=== PATIENT | female | born 1960 | race Caucasian/White ===

== ENCOUNTER 2016-10-08 09:05 | Emergency (ER) | payer BC, MEDICAID ==
[2016-10-08] MEDS ORDERED: IPRATROPIUM/ALBUTEROL 0.5-2.5 MG/3 ML AMPUL NEB ONE (09:48)
[2016-10-08 10:25] LABS: ABSOLUTE MONOCYTES (AUTO) 0.4 10^3/uL (0.1-1.4); ABSOLUTE NEUT (AUTO) 5.7 10^3/uL (1.7-8.2); BASOPHILS % (AUTO) 0.6 % (0-2); EOSINOPHILS % (AUTO) 0.2 % (0-6); HEMATOCRIT 37.1 % (36.0-47.0); HEMOGLOBIN 12.4 g/dL (12.0-15.5); HGB HCT DIFFERENCE 0.1; LYMPHOCYTES % (AUTO) 13.5 % (13-45); MEAN CORPUSCULAR HEMOGLOBIN 31.3 pg (27.0-33.4); MEAN CORPUSCULAR HGB CONC 33.5 g/dL (32.0-36.0); MEAN CORPUSCULAR VOLUME 93 fl (80-97); RED BLOOD COUNT 3.97 10^6/uL (3.72-5.28); RED CELL DISTRIBUTION WIDTH 14.6 % (11.5-14.0); SEGMENTED NEUTROPHILS % (AUTO) 80.7 % (42-78); WHITE BLOOD COUNT 7.1 10^3/uL (4.0-10.5)
[2016-10-08 10:44] LABS: ALANINE AMINOTRANSFERASE 23 U/L (9-52); ALBUMIN 3.6 g/dL (3.5-5.0); ALKALINE PHOSPHATASE 72 U/L (38-126); ANION GAP 11 (5-19); ASPARTATE AMINO TRANSFERASE 18 U/L (14-36); BILIRUBIN,TOTAL 0.2 mg/dL (0.2-1.3); BLOOD UREA NITROGEN 22 mg/dL (7-20); CALCIUM 9.4 mg/dL (8.4-10.2); CARBON DIOXIDE 23 mmol/L (22-30); CHLORIDE 104 mmol/L (98-107); CREATINE KINASE 70 U/L (30-135); CREATININE RESULT 1.17 mg/dL (0.52-1.25); GLUCOSE 90 mg/dL (75-110); LIPASE 367.7 U/L (23-300); MAGNESIUM 1.8 mg/dL (1.6-2.3); POTASSIUM 3.7 mmol/L (3.6-5.0); SODIUM 137.8 mmol/L (137-145); TOTAL PROTEIN 6.3 g/dL (6.3-8.2)
[2016-10-08 10:57] LABS: CREATINE KINASE MB 0.68 ng/mL (<4.55)
[2016-10-08 11:10] LABS: TROPONIN I < 0.012 ng/mL
[2016-10-08] MEDS ORDERED: NORMAL SALINE 1000 ML 500 ML IV ONE (11:12)
[2016-10-08] MEDS ORDERED: ALBUTEROL SULFATE 0.083% NEB 2.5 MG/3 ML AMPUL NEB ONE (11:19)
[2016-10-08] MEDS ORDERED: LIDOCAINE 5% (700 MG) TRANSDERMAL ADH..PATCH TP ONE (12:02)
[2016-10-08] MEDS ORDERED: KETOROLAC TROMETHAMINE INJ/PF 30 MG/1 ML SDV IV ONE (12:02)
--- NOTE | 2016-10-08 12:30 | ER Document Report ---
ED General - General Chief Complaint: Chest Pressure Stated Complaint: SHORTNESS OF BREATH,CHEST PRESSURE TRAVEL OUTSIDE OF THE [place] IN LAST 30 DAYS: No - HPI Patient complains to provider of: chest pressure shortness of breath Notes: Patient coming in for chest pressure shortness of breath. Patient was seen in urgent care 3 days prior to arrival patient was started on prednisone albuterol and azithromycin patient states she is a smoker and continues to smoke. Patient states symptoms not any better therefore came into the ER for further evaluation. Patient states chest pressure that radiates to her back. Denies any recent travel patient denies recent antibiotics of azithromycin that she is currently on. Patient multiple people smoke around the patient home. No sick contacts. Past medical history is hypertension - Related Data Allergies/Adverse Reactions: amoxicillin [Amoxicillin] Allergy (Severe, Verified 10/08/16 09:15) Anaphylaxis cyclobenzaprine HCl [From Flexeril] Allergy (Severe, Verified 10/08/16 09:15) Anaphylaxis tramadol [Tramadol] Allergy (Severe, Verified 10/08/16 09:15) Anaphylaxis Past Medical History - Social History Smoking Status: Current Every Day Smoker Chew tobacco use (# tins/day): No Frequency of alcohol use: None Drug Abuse: None Family History: Reviewed & Not Pertinent Patient has suicidal ideation: No Patient has homicidal ideation: No - Past Medical History Cardiac Medical History: Reports: Hx DVT, Hx Hypertension Denies: Hx Coronary Artery Disease, Hx Heart Attack Pulmonary Medical History: Reports: Hx Asthma, Hx Bronchitis - Once yearly, Hx COPD, Hx Pneumonia - Aug 2014 Neurological Medical History: Denies: Hx Cerebrovascular Accident, Hx Seizures Renal/ Medical History: Denies: Hx Peritoneal Dialysis Malignancy Medical History: Reports: Hx Skin Cancer GI Medical History: Reports: Hx Gastroesophageal Reflux Disease, Hx Ulcer Musculoskeltal Medical History: Denies Hx Arthritis Psychiatric Medical History: Reports: Hx Depression Past Surgical History: Reports: Hx Section - x3, Hx Vascular Surgery - Left aoro-fem bypass Apr 2015. Denies: Hx Hysterectomy - Immunizations Hx Diphtheria, Pertussis, Tetanus Vaccination: Yes Hx Pneumococcal Vaccination: 05/13/14 Review of Systems - Review of Systems Constitutional: No symptoms reported EENT: No symptoms reported Cardiovascular: Chest pain Respiratory: Cough, Short of breath, Wheezing Gastrointestinal: No symptoms reported Genitourinary: No symptoms reported Female Genitourinary: No symptoms reported Musculoskeletal: No symptoms reported Skin: No symptoms reported Hematologic/Lymphatic: No symptoms reported Neurological/Psychological: No symptoms reported -: Yes All other systems reviewed and negative Physical Exam - Vital signs Vitals: Temp Pulse Resp BP Pulse Ox 97.9 F 74 20 125/68 97 10/08/16 09:16 10/08/16 09:16 10/08/16 09:16 10/08/16 09:16 10/08/16 09:16 Interpretation: Normal - General General appearance: Appears well, Alert - HEENT Head: Normocephalic, Atraumatic Eyes: Normal Pupils: PERRL - Respiratory Respiratory status: No respiratory distress Chest status: Nontender Breath sounds: Wheezing Chest palpation: Normal - Cardiovascular Rhythm: Regular Heart sounds: Normal auscultation Murmur: No - Abdominal Inspection: Normal Distension: No distension Bowel sounds: Normal Tenderness: Nontender Organomegaly: No organomegaly - Back Back: Normal, Nontender - Extremities General upper extremity: Normal inspection, Nontender, Normal color, Normal ROM , Normal temperature General lower extremity: Normal inspection, Nontender, Normal color, Normal ROM , Normal temperature, Normal weight bearing. No: Nessa's sign - Neurological Neuro grossly intact: Yes Cognition: Normal Orientation: AAOx4 [place] Coma Scale Eye Opening: Spontaneous [place] Coma Scale Verbal: Oriented Anitha Coma Scale Motor: Obeys Commands Anitha Coma Scale Total: 15 Speech: Normal Motor strength normal: LUE, RUE, LLE, RLE Sensory: Normal - Psychological Associated symptoms: Normal affect, Normal mood - Skin Skin Temperature: Warm Skin Moisture: Dry Skin Color: Normal Course - Re-evaluation Re-evalutation: 10/08/16 15:07 Patient presents with signs and symptoms of bronchitis. Patient's lab work shows no signs of cardiac damage CTA was performed after elevated d-dimer which is negative. Patient was educated to stop smoking. Patient is to continue her treatment at home. Albuterol antibiotics and steroids. Patient will be given albuterol - Vital Signs Vital signs: Temp Pulse Resp BP Pulse Ox 98 F 94 21 H 101/55 L 94 10/08/16 12:50 10/08/16 12:50 10/08/16 12:50 10/08/16 12:50 10/08/16 12:50 - Laboratory Result Diagrams: 10/08/16 10:05 10/08/16 10:05 Laboratory results interpreted by me: 10/08/16 10/08/16 10/08/16 10:05 10:05 10:05 RDW 14.6 H Seg Neutrophils % 80.7 H D-Dimer 0.56 H BUN 22 H Est GFR ( Amer) 58 L Est GFR (Non-Af Amer) 48 L Lipase 367.7 H Discharge - Discharge Clinical Impression: Tobacco abuse, Bronchitis Condition: Good Disposition: HOME, SELF-CARE Instructions: Bronchitis With Bronchospasm (Wheezing) ([facility]) Additional Instructions: Take medication as prescribed. Please use the inhaler or your nebulizer at least every 4 hours. You may use in between if you are having shortness of breath. Please take Tylenol Motrin for pain control you may use the patch for pain control as well. Please stop smoking if you do not stop smoking the medications that we are prescribing will not aid in your symptom relief Prescriptions: Albuterol Sulfate [Albuterol Sulfate 2.5mg/3 mL] 2.5 mg IH Q4 #30 ml Lidocaine [Lidoderm 5% (700 mg) Transdermal Patch] 1 patch TP DAILY #10 adh..patch Forms: Smoking Cessation Education Referrals: CHRISTIANNE YU DO [Primary Care Provider] - Follow up as needed
[2016-10-08 12:36] LABS: VENOUS BLOOD BASE EXCESS -2.9 mmol/L; VENOUS BLOOD PH 7.37 (7.30-7.42)
[2016-10-08 12:57] VITALS: BP 101/55
--- NOTE | 2016-10-08 17:39 | EKG REPORT ---
SEVERITY:- NORMAL ECG - SINUS RHYTHM : Confirmed by: Tayler Alexander MD 08-Oct-2016 17:39:07
== END 2016-10-08 12:50 | disposition home or self-care (01) ==
LOC: ER 09:05
DX: J44.9 Chronic obstructive pulmonary disease, unspecified (principal); J45.909 Unspecified asthma, uncomplicated; F17.200 Nicotine dependence, unspecified, uncomplicated; R07.89 Other chest pain; R06.02 Shortness of breath; I10 Essential (primary) hypertension; R05 Cough; Z87.892 Personal history of anaphylaxis; Z88.0 Allergy status to penicillin; Z88.8 Allergy status to other drugs, medicaments and biological substances; Z88.5 Allergy status to narcotic agent; Z86.718 Personal history of other venous thrombosis and embolism; Z87.01 Personal history of pneumonia (recurrent); Z85.828 Personal history of other malignant neoplasm of skin
CPT/HCPCS: 93005; 94640 ×2; 99285; 96374; 36415; 82553; 82550; 83690; 83735; 85025; 80053; 84484; 85379; 82803; 71010; 71275; 93010; J1885; J3490; J7030; J7620

== ENCOUNTER 2016-10-09 09:36 | Inpatient (IN) | payer MEDICAID ==
[2016-10-09] MEDS ORDERED: TERBUTALINE SULFATE INJ/PF 1 MG/1 ML SDV SUBCUT ONE (09:52)
[2016-10-09] MEDS ORDERED: MAGNESIUM SULFATE/D5W 100 ML IV ONE (09:53)
[2016-10-09 10:10] LABS: ABSOLUTE LYMPHOCYTES (AUTO) 1.1 10^3/uL (0.5-4.7); ABSOLUTE MONOCYTES (AUTO) 0.3 10^3/uL (0.1-1.4); BASOPHILS % (AUTO) 0.4 % (0-2); HEMATOCRIT 36.9 % (36.0-47.0); HEMOGLOBIN 12.3 g/dL (12.0-15.5); LYMPHOCYTES % (AUTO) 14.6 % (13-45); MEAN CORPUSCULAR HEMOGLOBIN 31.1 pg (27.0-33.4); MEAN CORPUSCULAR HGB CONC 33.4 g/dL (32.0-36.0); MEAN CORPUSCULAR VOLUME 93 fl (80-97); MONOCYTES % (AUTO) 4.2 % (3-13); RED BLOOD COUNT 3.96 10^6/uL (3.72-5.28); RED CELL DISTRIBUTION WIDTH 14.7 % (11.5-14.0); SEGMENTED NEUTROPHILS % (AUTO) 80.8 % (42-78); WHITE BLOOD COUNT 7.4 10^3/uL (4.0-10.5)
[2016-10-09 10:11] LABS: VENOUS BLOOD BASE EXCESS -2.9 mmol/L; VENOUS BLOOD HCO3 23.1 mmol/L (20-32); VENOUS BLOOD PCO2 45.2 mmHg (35-63); VENOUS BLOOD PH 7.33 (7.30-7.42)
[2016-10-09 10:25] LABS: PROTHROMBIN TIME 11.9 SEC (11.4-15.4)
[2016-10-09 10:31] LABS: ALANINE AMINOTRANSFERASE 24 U/L (9-52); ALBUMIN 3.6 g/dL (3.5-5.0); ALKALINE PHOSPHATASE 78 U/L (38-126); ANION GAP 11 (5-19); ASPARTATE AMINO TRANSFERASE 18 U/L (14-36); BILIRUBIN,TOTAL 0.2 mg/dL (0.2-1.3); BLOOD UREA NITROGEN 21 mg/dL (7-20); CALCIUM 9.4 mg/dL (8.4-10.2); CARBON DIOXIDE 21 mmol/L (22-30); CHLORIDE 106 mmol/L (98-107); CREATINE KINASE 103 U/L (30-135); CREATININE RESULT 0.97 mg/dL (0.52-1.25); GLUCOSE 113 mg/dL (75-110); LIPASE 148.9 U/L (23-300); MAGNESIUM 1.9 mg/dL (1.6-2.3); PHOSPHORUS 2.7 mg/dL (2.5-4.5); POTASSIUM 3.5 mmol/L (3.6-5.0); SODIUM 138.1 mmol/L (137-145); TOTAL PROTEIN 6.3 g/dL (6.3-8.2)
[2016-10-09] MEDS ORDERED: ALBUTEROL SULFATE 0.083% NEB 2.5 MG/3 ML AMPUL NEB ONE (10:34)
[2016-10-09 10:56] LABS: TROPONIN I < 0.012 ng/mL
[2016-10-09] MEDS ORDERED: POTASSIUM CHLORIDE 10 MEQ TABLET.SA PO ONE (11:30)
--- NOTE | 2016-10-09 12:21 | ER Document Report ---
ED General - General Chief Complaint: Breathing Difficulty Stated Complaint: DIFFICULTY BREATHING TRAVEL OUTSIDE OF THE [place] IN LAST 30 DAYS: No - HPI Patient complains to provider of: wheezing difficulty breathing Notes: Patient coming to the ER today for respiratory distress wheezing more likely COPD exacerbation. I evaluated the patient day prior to arrival for similar presentation was able to give her medications and discharge patient home. Patient returns for EMS was found outside to Make no signs of hypoxia would give the patient a breathing treatment with improvement. Patient upon my evaluation now has 2-3 word dyspnea no signs of hypoxia but is to Take. Denies any pain. Patient states that she did not smoke in the last 24 hours patient states she had been compliant with her medication and using the inhaler every 4 hours. Denies fevers - Related Data Allergies/Adverse Reactions: amoxicillin [Amoxicillin] Allergy (Severe, Verified 10/08/16 09:15) Anaphylaxis cyclobenzaprine HCl [From Flexeril] Allergy (Severe, Verified 10/08/16 09:15) Anaphylaxis tramadol [Tramadol] Allergy (Severe, Verified 10/08/16 09:15) Anaphylaxis Past Medical History - Social History Smoking Status: Current Every Day Smoker Family History: Reviewed & Not Pertinent - Past Medical History Cardiac Medical History: Reports: Hx DVT, Hx Hypertension Denies: Hx Coronary Artery Disease, Hx Heart Attack Pulmonary Medical History: Reports: Hx Asthma, Hx Bronchitis - Once yearly, Hx COPD, Hx Pneumonia - Aug 2014 Neurological Medical History: Denies: Hx Cerebrovascular Accident, Hx Seizures Renal/ Medical History: Denies: Hx Peritoneal Dialysis Malignancy Medical History: Reports: Hx Skin Cancer GI Medical History: Reports: Hx Gastroesophageal Reflux Disease, Hx Ulcer Musculoskeltal Medical History: Denies Hx Arthritis Psychiatric Medical History: Reports: Hx Depression Past Surgical History: Reports: Hx Section - x3, Hx Vascular Surgery - Left aoro-fem bypass Apr 2015. Denies: Hx Hysterectomy - Immunizations Hx Diphtheria, Pertussis, Tetanus Vaccination: Yes Hx Pneumococcal Vaccination: 05/13/14 Review of Systems - Review of Systems Constitutional: No symptoms reported EENT: No symptoms reported Cardiovascular: No symptoms reported Respiratory: Short of breath, Wheezing Gastrointestinal: No symptoms reported Genitourinary: No symptoms reported Female Genitourinary: No symptoms reported Musculoskeletal: No symptoms reported Skin: No symptoms reported Hematologic/Lymphatic: No symptoms reported Neurological/Psychological: No symptoms reported Physical Exam - Vital signs Vitals: Pulse Ox 96 10/09/16 09:47 Interpretation: Normal - General General appearance: Appears well, Alert - HEENT Head: Normocephalic, Atraumatic Eyes: Normal Pupils: PERRL - Respiratory Respiratory status: Respiratory distress - Mild Chest status: Nontender Breath sounds: Decreased air movement, Wheezing Chest palpation: Normal - Cardiovascular Rhythm: Regular Heart sounds: Normal auscultation Murmur: No - Abdominal Inspection: Normal Distension: No distension Bowel sounds: Normal Tenderness: Nontender Organomegaly: No organomegaly - Back Back: Normal, Nontender - Extremities General upper extremity: Normal inspection, Nontender, Normal color, Normal ROM , Normal temperature General lower extremity: Normal inspection, Nontender, Normal color, Normal ROM , Normal temperature, Normal weight bearing. No: Nessa's sign - Neurological Neuro grossly intact: Yes Cognition: Normal Orientation: AAOx4 [place] Coma Scale Eye Opening: Spontaneous Anitha Coma Scale Verbal: Oriented Anitha Coma Scale Motor: Obeys Commands Anitha Coma Scale Total: 15 Speech: Normal Motor strength normal: LUE, RUE, LLE, RLE Sensory: Normal - Psychological Associated symptoms: Normal affect, Normal mood - Skin Skin Temperature: Warm Skin Moisture: Dry Skin Color: Normal Course - Re-evaluation Re-evalutation: 10/09/16 14:31 Patient was given bronchodilators magnesium terbutaline steroids. Patient with minimal improvement continues to not be hypoxic however upon ambulating becomes very dyspneic. Discussed with hospitalist will admit the patient for further evaluation for of her COPD exacerbation - Vital Signs Vital signs: Temp Pulse Resp BP Pulse Ox 97.5 F 96 18 103/71 94 10/09/16 09:57 10/09/16 09:57 10/09/16 13:01 10/09/16 13:01 10/09/16 13:01 - Laboratory Result Diagrams: 10/09/16 09:52 10/09/16 09:52 Laboratory results interpreted by me: 10/09/16 10/09/16 09:52 09:52 RDW 14.7 H Seg Neutrophils % 80.8 H Potassium 3.5 L Carbon Dioxide 21 L BUN 21 H Est GFR (Non-Af Amer) 59 L Glucose 113 H Discharge - Discharge Clinical Impression: Tobacco abuse, Bronchitis, COPD exacerbation Condition: Good Disposition: ADMITTED INPATIENT Admitting Provider: Hospitalist - [facility] Admitted: Telemetry
[2016-10-09] MEDS ORDERED: DEXTROSE 5%-1/2 NORMAL SALINE 1,000 ML IV PRN (12:46)
[2016-10-09] MEDS ORDERED: IPRATROPIUM/ALBUTEROL 0.5-2.5 MG/3 ML AMPUL NEB PRN (12:46)
[2016-10-09] MEDS ORDERED: ACETAMINOPHEN 325 MG TABLET PO ONE (13:26)
--- NOTE | 2016-10-09 15:20 | EKG REPORT ---
SEVERITY:- NORMAL ECG - SINUS RHYTHM : Confirmed by: Jamil Segal MD 09-Oct-2016 15:19:25
--- NOTE | 2016-10-09 16:29 | PDOC H&P ---
History of Present Illness Admission Date/PCP: 10/09/16 12:47 FATIMAH MCNALLY MD Patient complains of: shortness of breath History of Present Illness: CINDA HOUSTON is a 56 year old female who presents to the ED in respiratory distress. On 10/06/2016 she was seen at an urgent care center and treated with a breathing treatment and a course of Zithromax. As she did not improve, she presented to the [facility] ED on 10/08/2016 where she was evaluated for the same. She was found to be wheezy. Her laboratory work and CTA of the chest were unremarkable. Again she received breathing treatments but was discharged home. The patient returns today to the [facility] ED and worsened respiratory distress. She has been given several breathing treatments and dose of intravenous Solu- Medrol. She is using supplemental oxygen. Her O2 saturation is within normal limits but she remains tightly wheezy, with a sense of dyspnea. The patient is to be admitted for acute exacerbation of COPD. Past Medical History Cardiac Medical History: Reports: DVT, Hypertension, Peripheral Vascular Disease Denies: Coronary Artery Disease, Myocardial Infarction Pulmonary Medical History: Reports: Asthma, Bronchitis - Once yearly, Chronic Obstructive Pulmonary Disease (COPD), Pneumonia - Aug 2014 Neurological Medical History: Denies: Seizures Malignancy Medical History: Reports: Skin Cancer GI Medical History: Reports: Gastroesophageal Reflux Disease Musculoskeltal Medical History: Denies: Arthritis Psychiatric Medical History: Reports: Depression Hematology: Reports: Anemia Past Surgical History Past Surgical History: Reports: Section - x3, Vascular Surgery - Left aoro-fem bypass Apr 2015 Denies: Hysterectomy Social History Information Source: Patient Lives with: Spouse/Significant other Smoking Status: Current Every Day Smoker Cigarettes Packs Per Day: 1 Frequency of Alcohol Use: None Hx Recreational Drug Use: No Hx Prescription Drug Abuse: No - Advance Directive Resuscitation Status: Full Code Family History Family History: Reviewed & Not Pertinent Parental Family History Reviewed: Yes Children Family History Reviewed: Yes Sibling(s) Family History Reviewed.: Yes Medication/Allergy Home Medications: Albuterol Sulfate [Proair HFA] 2 puff IH Q6HP PRN 10/09/16 Aspirin [Aspirin 81 mg Chewable Tablet] 81 mg PO DAILY 10/09/16 Atorvastatin Calcium [Lipitor 80 mg Tablet] 80 mg PO QHS 10/09/16 Cholecalciferol (Vitamin D3) [Vitamin D3 2000 unit Tablet] 2,000 unit PO DAILY 10/09/16 Cilostazol [Pletal 100 Mg Tablet] 100 mg PO BID 10/09/16 Hydrocodone Bit/Acetaminophen [Hydrocodon-Acetaminophen 5-325] 1 each PO Q6HP PRN 10/09/16 Lisinopril/Hydrochlorothiazide [Lisinopril-Hctz 10-12.5 mg Tab] 1 tab PO DAILY 10/09/16 Omeprazole 20 mg PO DAILY 10/09/16 Allergies/Adverse Reactions: amoxicillin [Amoxicillin] Allergy (Severe, Verified 10/08/16 09:15) Anaphylaxis cyclobenzaprine HCl [From Flexeril] Allergy (Severe, Verified 10/08/16 09:15) Anaphylaxis tramadol [Tramadol] Allergy (Severe, Verified 10/08/16 09:15) Anaphylaxis Review of Systems Constitutional: ABSENT: chills, fever(s), headache(s), weight gain, weight loss Eyes: ABSENT: visual disturbances Ears: ABSENT: hearing changes Cardiovascular: PRESENT: dyspnea on exertion. ABSENT: chest pain, edema, orthropnea, palpitations Respiratory: PRESENT: as per HPI, cough, dyspnea. ABSENT: hemoptysis Gastrointestinal: ABSENT: abdominal pain, constipation, diarrhea, hematemesis, hematochezia, nausea, vomiting Genitourinary: ABSENT: dysuria, hematuria Musculoskeletal: ABSENT: joint swelling Integumentary: ABSENT: rash, wounds Neurological: ABSENT: abnormal gait, abnormal speech, confusion, dizziness, focal weakness, syncope Psychiatric: ABSENT: anxiety, depression, homidical ideation, suicidal ideation Endocrine: ABSENT: cold intolerance, heat intolerance, polydipsia, polyuria Hematologic/Lymphatic: ABSENT: easy bleeding, easy bruising Physical Exam Vital Signs: Temp Pulse Resp BP Pulse Ox 97.5 F 96 18 103/71 94 10/09/16 09:57 10/09/16 09:57 10/09/16 13:01 10/09/16 13:01 10/09/16 13:01 Intake & Output 10/08/16 10/09/16 10/10/16 06:59 06:59 06:59 Weight 64.6 kg General appearance: PRESENT: mild distress, well-developed, well-nourished Head exam: PRESENT: atraumatic, normocephalic Eye exam: PRESENT: conjunctiva pink, EOMI, PERRLA. ABSENT: scleral icterus Ear exam: PRESENT: normal external ear exam Mouth exam: PRESENT: moist, tongue midline Neck exam: ABSENT: carotid bruit, JVD, lymphadenopathy, thyromegaly Respiratory exam: PRESENT: tachypnea, wheezes. ABSENT: rales, rhonchi Cardiovascular exam: PRESENT: RRR. ABSENT: diastolic murmur, rubs, systolic murmur Pulses: PRESENT: other - toes are warm, pink, adequately perfused GI/Abdominal exam: PRESENT: normal bowel sounds, soft. ABSENT: distended, guarding, mass, organolmegaly, rebound, tenderness Rectal exam: PRESENT: deferred Extremities exam: PRESENT: full ROM. ABSENT: calf tenderness, clubbing, pedal edema Neurological exam: PRESENT: alert, awake, oriented to person, oriented to place , oriented to time, oriented to situation, CN II-XII grossly intact. ABSENT: motor sensory deficit Psychiatric exam: PRESENT: appropriate affect, normal mood. ABSENT: homicidal ideation, suicidal ideation Skin exam: PRESENT: dry, intact, warm. ABSENT: cyanosis, rash Results Laboratory Results: 10/09/16 15:24 Troponin I 0.134 Impressions: Chest X-Ray 10/09/16 09:47 IMPRESSION: NO SIGNIFICANT RADIOGRAPHIC FINDING IN THE CHEST. Assessment & Plan - Diagnosis (1) COPD exacerbation Is this a current diagnosis for this admission?: YesPlan: She will be treated with intravenous fluids, antibiotics, corticosteroids, and inhaled bronchodilators. (2) Tobacco abuse Is this a current diagnosis for this admission?: YesPlan: She was strongly advised to stop smoking. She was offered a nicotine patch but refused. - Time Time Spent: 30 to 50 Minutes
[2016-10-09] MEDS: IPRATROPIUM/ALBUTEROL 0.5-2.5 MG/3 ML AMPUL NEB SCH ×2 (16:53→21:44)
[2016-10-09] MEDS: METHYLPREDNISOLONE INJ 125 MG/2 ML SDV IV SCH (18:12)
[2016-10-09] MEDS: LEVOFLOXACIN 750 MG/D5W RTU 750 MG/150 ML RTUPB IV SCH (18:13)
[2016-10-09] MEDS: BUDESONIDE NEB 0.5 MG/2 ML AMPUL NEB SCH (21:44)
[2016-10-09] MEDS: FAMOTIDINE 20 MG TABLET PO SCH (22:55)
[2016-10-10 02:23] LABS: ABSOLUTE LYMPHOCYTES (AUTO) 0.7 10^3/uL (0.5-4.7); ABSOLUTE MONOCYTES (AUTO) 0.4 10^3/uL (0.1-1.4); ABSOLUTE NEUT (AUTO) 5.3 10^3/uL (1.7-8.2); BASOPHILS % (AUTO) 0.1 % (0-2); HEMATOCRIT 33.4 % (36.0-47.0); HEMOGLOBIN 11.4 g/dL (12.0-15.5); HGB HCT DIFFERENCE 0.8; MEAN CORPUSCULAR HEMOGLOBIN 31.6 pg (27.0-33.4); MEAN CORPUSCULAR HGB CONC 34.1 g/dL (32.0-36.0); MEAN CORPUSCULAR VOLUME 93 fl (80-97); MONOCYTES % (AUTO) 5.7 % (3-13); RED BLOOD COUNT 3.61 10^6/uL (3.72-5.28); RED CELL DISTRIBUTION WIDTH 14.6 % (11.5-14.0); SEGMENTED NEUTROPHILS % (AUTO) 83.2 % (42-78); WHITE BLOOD COUNT 6.4 10^3/uL (4.0-10.5)
[2016-10-10] MEDS: METHYLPREDNISOLONE INJ 125 MG/2 ML SDV IV SCH ×3 (02:33→18:53)
[2016-10-10 02:36] LABS: ANION GAP 9 (5-19); BLOOD UREA NITROGEN 17 mg/dL (7-20); CALCIUM 9.3 mg/dL (8.4-10.2); CARBON DIOXIDE 20 mmol/L (22-30); CHLORIDE 108 mmol/L (98-107); CREATININE RESULT 0.78 mg/dL (0.52-1.25); GLUCOSE 154 mg/dL (75-110); POTASSIUM 4.2 mmol/L (3.6-5.0); SODIUM 137.1 mmol/L (137-145)
[2016-10-10 02:49] LABS: CREATINE KINASE MB 3.02 ng/mL (<4.55); TROPONIN I 0.166 ng/mL
--- NOTE | 2016-10-10 07:55 | EKG REPORT ---
SEVERITY:- NORMAL ECG - SINUS RHYTHM : Confirmed by: Jamil Segal MD 10-Oct-2016 07:54:39
[2016-10-10] MEDS ORDERED: ENOXAPARIN SODIUM INJ 40 MG/0.4 ML DISP.SYRIN SUBCUT SCH ×2 (08:00→10:00)
[2016-10-10] MEDS: BUDESONIDE NEB 0.5 MG/2 ML AMPUL NEB SCH ×2 (08:45→19:37)
[2016-10-10] MEDS: IPRATROPIUM/ALBUTEROL 0.5-2.5 MG/3 ML AMPUL NEB SCH ×4 (08:45→19:37)
[2016-10-10] MEDS: LISINOPRIL 10 MG TABLET PO SCH (09:27)
[2016-10-10] MEDS: ENOXAPARIN SODIUM INJ 80 MG/0.8 ML DISP.SYRIN SUBCUT SCH ×2 (09:27→22:40)
[2016-10-10] MEDS: HYDROCHLOROTHIAZIDE 12.5 MG CAPSULE PO SCH (09:27)
[2016-10-10] MEDS: FAMOTIDINE 20 MG TABLET PO SCH ×2 (09:27→22:40)
[2016-10-10] MEDS: CHOLECALCIFEROL (D3) 1,000 UNIT TABLET PO SCH (09:27)
[2016-10-10] MEDS: HYDROCODONE/ACETAMINOPHEN 5-325 MG TABLET PO PRN ×2 (09:34→15:46)
[2016-10-10] MEDS ORDERED: LANSOPRAZOLE 15 MG TAB.RAP.DR PO ONE (10:00)
[2016-10-10] MEDS ORDERED: (PENDING PHARMACY ID) (Lisinopril/Hydrochlorothiazide [Lisinopril-Hctz 10-12.5 Mg Tab] 1 T PO SCH (10:00)
[2016-10-10] MEDS ORDERED: (PENDING PHARMACY ID) (Cholecalciferol (Vitamin D3) [Vitamin D3 2000 Unit Tablet] 2,000 UN PO SCH (10:00)
[2016-10-10] MEDS ORDERED: CILOSTAZOL 100 MG TABLET PO SCH (10:00)
[2016-10-10] MEDS ORDERED: ASPIRIN 81 MG TABLET, CHEWABLE PO ONE (10:00)
--- NOTE | 2016-10-10 11:17 | Physician Advisory Note ---
Physician Advisor ProgressNote .: Pursuant to the plan for [facility], I have reviewed the medical record for this patient. Physician Advisor Statement: As always, if concerned about any unstable VS or abnormal labs, please comment on them & note what doing about them, & please document each day the potential clinical problems you are concerned could occur if pt not kept in hospital for tx at this time. Discussion: 56yo female w/ chronic co-morbidities including COPD, asthma, HTN, DVT, tobacco abuse/dependence, Lt aortofem bypass - presented 10/09 AM to ED w/SOB/difficulty breathing/wheezing/resiratory distress despite Zithromax & neb tx.s on 2 of the prior 3 days, & even after improvement to some degree w/EMS neb. She reported using her inhaler q4h, not smoking x24h. (+) HR 94-96, RR20-24, O2 sat 97% RA, "2-3 word dyspnea" per ED dr, w/tachypnea , WBC 7.4, K 3.5, bicarb 21, BUN 21, Cr 0.97. CXR neg, trop I neg initially. ED gave her bronchodilator nebs/Mag/terbulatiline/steroids with "minimal improvement" - still "tightly wheezy" per attending - & pt ambulating made her "very dyspneic". Attending ordered Solumedrol 125mg q8h, Dunoebs q4h, Pulmiocort q12h, IV Levaquin, serial cardiac enzymes Status: SOB/COPD exac typically is Outpt Obs until they show they are failing outpt tx. However, this pt was already failing outpt tx by time of arrival this time, with urgent care tx on 10/06 & ED outpt tx 10/08 yet continuing to worsen, still in distress & w/minimal improvement after 10/09's aggressive ED tx.s as well. She even continued to have recurrent tachycardia & tachypnea throughout the day 10/09 into the PM, with HR to 110s & RR to 28, & temp down to 96.0 at one point that PM. Also, since arrival, trop Is jumped from <0.012 to 0.134, then 0.16s x2. Her respiratory difficulty appears to be stressing not only her lungs but her heart. This is not a pt who could be safely managed outpt any longer - high risk for developing Acute Respiratory Failure &/or ACS. Tx in inpatient hospital setting definitely medically reasonable & necessary to protect pt's health, safety, & medical condition. Appropriate for Inpt status. Thanks for your help with documentation accuracy/specificity improvement! Macy Meredith MD [facility] Physician Advisor, Fellow of Hospital Medicine
[2016-10-10 11:30] LABS: ARTERIAL BLOOD BASE EXCESS -2.9 mmol/L; ARTERIAL BLOOD O2 SATURATION 95.8 % (94-98)
[2016-10-10] MEDS ORDERED: ALPRAZOLAM 0.25 MG TABLET PO PRN (16:52)
[2016-10-10] MEDS ORDERED: ZOLPIDEM TARTRATE 5 MG TABLET PO PRN (16:53)
[2016-10-10] MEDS ORDERED: LEVALBUTEROL HCL NEB 1.25 MG/3 ML AMPUL NEB PRN (16:55)
[2016-10-10] MEDS ORDERED: ALPRAZOLAM 0.25 MG TABLET PO ONE (17:45)
--- NOTE | 2016-10-10 17:58 | XCELERA REPORT ---
[address] [address] Transthoracic Echocardiogram Report Name: CINDA HOUSTON Age: 56 yrs Gender: Female : 1960 Patient Status: Inpatient Patient Location: 5\[id number]\534\[id number]\A Study Date: 10/10/2016 02:30 PM Height: 64 in Weight: 149 lb BSA: 1.7 m2 Procedure: A complete two-dimensional transthoracic echocardiogram was performed (2D, M-mode, spectral and color flow Doppler). The study was technically adequate with some images being suboptimal in quality. Reason For Study: NSTEMI Ordering Physician: BLANCHE GIRALDO Performed By: Radha Ann Interpretation Summary The study was technically adequate with some images being suboptimal in quality. The left ventricular ejection fraction is normal. There is borderline concentric left ventricular hypertrophy. The left ventricle is grossly normal size. Doppler measurements suggest pseudonormalized left ventricular relaxation, which is associated with grade II/IV or mild to moderate diastolic dysfunction Wall motion cannot be accurately commented on, but no definite regional wall motion abnormalities noted. The right ventricle is mildly dilated. The right ventricular systolic function is normal. The right ventricle appears to be hypertrophied The left atrial size is normal. The right atrium is mildly dilated. There is no mitral valve stenosis. There is a trace amount of mitral regurgitation There is no aortic valve stenosis There is a trace amount of aortic regurgitation There is a trace or physiologic amount of tricuspid regurgitation Tricuspid regurgitation jet envelope not well defined to measure RV systolic pressure accurately. The aortic root is not well visualized. The inferior vena cava appeared normal and decreased < 50% with respiration (RAP 10-15 mmHg) Minimal pericardial effusion. MMode/2D Measurements \T\ Calculations RVDd: 3.0 cm LVIDd: 3.8 cm FS: 33.1 % Ao root diam: 2.8 cm IVSd: 1.2 cm LVIDs: 2.5 cm EDV(Teich): 61.7 ml LVPWd: 1.2 cm ESV(Teich): 23.2 ml Ao root area: 6.2 cm2 EF(Teich): 62.4 % LA dimension: 3.4 cm Doppler Measurements \T\ Calculations MV E max aylin: MV P1/2t max aylin: Ao V2 max: LV V1 max P.6 cm/sec 108.6 cm/sec 187.3 cm/sec 15.2 mmHg MV A max aylin: MV P1/2t: 66.8 msec Ao max PG: LV V1 max: 99.3 cm/sec 14.0 mmHg 194.7 cm/sec MV E/A: 1.1 MVA(P1/2t): 3.3 cm2 MV dec slope: 476.4 cm/sec2 PA V2 max: 105.1 cm/sec PA max P.4 mmHg Left Ventricle The left ventricle is grossly normal size. There is borderline concentric left ventricular hypertrophy. The left ventricular ejection fraction is normal. Doppler measurements suggest pseudonormalized left ventricular relaxation, which is associated with grade II/IV or mild to moderate diastolic dysfunction. Wall motion cannot be accurately commented on, but no definite regional wall motion abnormalities noted. Right Ventricle The right ventricle is mildly dilated. The right ventricle appears to be hypertrophied. The right ventricular systolic function is normal. Atria The right atrium is mildly dilated. The left atrial size is normal. Interarterial septum not well visualized and not well dopplered. Cannot comment on ASD/PFO presence. Mitral Valve There is mild mitral leaflet calcification. There is no mitral valve stenosis. There is a trace amount of mitral regurgitation. Aortic Valve The aortic valve is not well visualized secondary to technical limitations. There is no aortic valve stenosis. There is a trace amount of aortic regurgitation. Tricuspid Valve The tricuspid valve is not well visualized secondary to technical limitations. There is no tricuspid stenosis. There is a trace or physiologic amount of tricuspid regurgitation. Tricuspid regurgitation jet envelope not well defined to measure RV systolic pressure accurately. Pulmonic Valve The pulmonic valve is not well visualized. Great Vessels The aortic root is not well visualized. The inferior vena cava appeared normal and decreased < 50% with respiration (RAP 10-15 mmHg). Effusions Minimal pericardial effusion. : BLANCHE GIRALDO > Blanche Giraldo
--- NOTE | 2016-10-10 18:12 | EKG REPORT ---
SEVERITY:- NORMAL ECG - SINUS RHYTHM : Confirmed by: Jamil Segal MD 10-Oct-2016 18:12:12
[2016-10-10] MEDS: LEVOFLOXACIN 750 MG/D5W RTU 750 MG/150 ML RTUPB IV SCH (18:54)
--- NOTE | 2016-10-10 19:34 | PDOC CONSULTATION ---
Consultation Consult Date: 10/10/16 Attending physician:: MIRIAM ALEXANDER Consult reason:: Abnormal troponin I, dyspnea, History of Present Illness Admission Date/PCP: 10/09/16 12:47 FATIMAH MCNALLY MD Patient complains of: Shortness of breath and chest tightness intermittent History of Present Illness: CINDA HOUSTON is a 56 year old female who admitted through the ED in respiratory distress. On 10/06/2016 she was seen at an urgent care center and treated with a breathing treatment and a course of Zithromax. As she did not improve, she presented to the [facility] ED on 10/08/2016 where she was evaluated for the same. She was found to be wheezy. Her laboratory work and CTA of the chest were unremarkable. Again she received breathing treatments but was discharged home. The patient presented today to the [facility] ED and worsened respiratory distress. She has been given several breathing treatments and dose of intravenous Solu- Medrol. She is using supplemental oxygen. Her O2 saturation is within normal limits but she remains tightly wheezy, with a sense of dyspnea. The patient was admitted for acute exacerbation of, however noted to have troponin I elevation. Multiple EKGs did not show any significant changes. I was asked to evaluate patient because of abnormal troponin I and intermittent tightness in the chest. This history was reviewed, supplemented and confirmed. Past Medical History Cardiac Medical History: Reports: DVT, Hypertension, Peripheral Vascular Disease Denies: Coronary Artery Disease, Myocardial Infarction Pulmonary Medical History: Reports: Asthma, Bronchitis - Once yearly, Chronic Obstructive Pulmonary Disease (COPD), Pneumonia - Aug 2014 Neurological Medical History: Denies: Seizures Malignancy Medical History: Reports: Skin Cancer GI Medical History: Reports: Gastroesophageal Reflux Disease Musculoskeltal Medical History: Denies: Arthritis Psychiatric Medical History: Reports: Depression Hematology: Reports: Anemia Past Surgical History Past Surgical History: Reports: Section - x3, Vascular Surgery - Left aoro-fem bypass Apr 2015 Denies: Hysterectomy Social History Information Source: Patient Lives with: Spouse/Significant other Smoking Status: Current Every Day Smoker Cigarettes Packs Per Day: 1 Frequency of Alcohol Use: None Hx Recreational Drug Use: No Drugs: None Hx Prescription Drug Abuse: No - Advance Directive Resuscitation Status: Full Code Surrogate healthcare decision maker:: Patient's spouse Family History Family History: Reviewed & Not Pertinent Parental Family History Reviewed: Yes Children Family History Reviewed: Yes Sibling(s) Family History Reviewed.: Yes Medication/Allergy Home Medications: Albuterol Sulfate [Proair HFA] 2 puff IH Q6HP PRN 10/09/16 Aspirin [Aspirin 81 mg Chewable Tablet] 81 mg PO DAILY 10/09/16 Atorvastatin Calcium [Lipitor 80 mg Tablet] 80 mg PO QHS 10/09/16 Cholecalciferol (Vitamin D3) [Vitamin D3 2000 unit Tablet] 2,000 unit PO DAILY 10/09/16 Cilostazol [Pletal 100 Mg Tablet] 100 mg PO BID 10/09/16 Hydrocodone Bit/Acetaminophen [Hydrocodon-Acetaminophen 5-325] 1 each PO Q6HP PRN 10/09/16 Lisinopril/Hydrochlorothiazide [Lisinopril-Hctz 10-12.5 mg Tab] 1 tab PO DAILY 10/09/16 Omeprazole 20 mg PO DAILY 10/09/16 Allergies/Adverse Reactions: amoxicillin [Amoxicillin] Allergy (Severe, Verified 10/08/16 09:15) Anaphylaxis cyclobenzaprine HCl [From Flexeril] Allergy (Severe, Verified 10/08/16 09:15) Anaphylaxis tramadol [Tramadol] Allergy (Severe, Verified 10/08/16 09:15) Anaphylaxis Review of Systems Review of Systems: Please see history of present illness and past medical history as wall. Constitutional: Low-grade fever or chills reported. Head : No recent chronic headaches, recent head injury. Eyes: No recent eye pain, diplopia, redness, discharge, acute visual changes. Ears: No recent chronic ear pain, acute hearing loss, ear discharge. Oral cavity: No recent ulcerations, bleeding, oral cavity discomfort. Neck: No recent acute neck pain reported. Hematologic: No recent easy bruising or bleeding or hematologic malignancy reported. Lymphatic: No recent lymphatic malignancy, chronic lymphadenopathy reported yet Cardiovascular system review: See history of present illness. No recent chest pain. No prior history of CAD but history of PVD Respiratory system review: Recent cough with sputum production and wheezing. But no hemoptysis, blood clots in the lungs reported. Moderate Shortness of breath on exertion Gastrointestinal system review: Negative for any recent acute or chronic abdominal pain, hematemesis, melena, recent change in bowel habits. Genitourinary system review: No recent acute or chronic hematuria, flank pain, UTI etc. reported. Skin system review: Negative for any recent abnormal bruising, no rash, no pruritus reported. Neurologic: No prior history of strokes, mini strokes, seizure disorder. Psychologic: No history of major psychosis or major depression reported. Musculoskeletal: Minor aches and pains reported. No acute joint swelling reported. Endocrine: No recent polyuria, polydipsia, recent heat or cold intolerance. Physical Exam Vital Signs: Temp Pulse Resp BP Pulse Ox 97.9 F 84 20 109/55 L 97 10/10/16 16:13 10/10/16 16:13 10/10/16 16:13 10/10/16 16:13 10/10/16 16:13 Intake & Output 10/09/16 10/10/16 10/11/16 06:59 06:59 06:59 Intake Total 1647 Balance 1647 Weight 67.7 kg Exam: GENERAL: well-nourished and in no acute distress. Alert and oriented x3 : Atraumatic, normocephalic. EYES: Pupils equal round and reactive to light, extraocular movements, sclera anicteric, conjunctiva are normal. ENT: TMs normal, nares patent, oropharynx clear without exudates. Moist mucous membranes. No oral ulcerations or bleeding gums noted NECK: supple without lymphadenopathy. Trachea is central. No cervical or axillary lymphadenopathy noted. Carotids are 2+, JVD WNL LUNGS: Respiration seems mild respiratory distress but no significant accessory muscle action noted. Bilateral wheezes rales or rhonchi noted. No significant dullness noted on percussion. CHEST: Palpation of the chest wall shows no significant chest wall tenderness. No other significant abnormalities noted. 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 ABDOMEN: Soft, no significant tenderness appreciated, normoactive bowel sounds. No guarding, no rebound. No rigidity noted . No masses appreciated. EXTREMITIES: Pedal pulses are 1-2+, no calf tenderness noted. No clubbing or cyanosis.trace pedal edema noted NEUROLOGICAL: Focused neurological exam showed no significant neurologic deficit. Normal speech, no focal weakness appreciated. PSYCH: Normal mood, normal affect. Judgment and insight within normal limits. SKIN: No significant ecchymosis, rash, ulcerations or signs of pruritus noted. MUSCULOSKELETAL EXAM: No significant joint swelling noted. Results Laboratory Results: 10/10/16 02:06 10/10/16 02:06 10/10/16 10/10/16 10/10/16 02:06 02:06 11:13 WBC 6.4 RBC 3.61 L Hgb 11.4 L Hct 33.4 L MCV 93 MCH 31.6 MCHC 34.1 RDW 14.6 H Plt Count 267 Seg Neutrophils % 83.2 H Lymphocytes % 11.0 L Monocytes % 5.7 Eosinophils % 0.0 Basophils % 0.1 Absolute Neutrophils 5.3 Absolute Lymphocytes 0.7 Absolute Monocytes 0.4 Absolute Eosinophils 0.0 Absolute Basophils 0.0 Carbonic Acid 1.04 L HCO3/H2CO3 Ratio 20:1 ABG pH 7.41 ABG pCO2 34.6 L ABG pO2 78.5 L ABG HCO3 21.2 ABG O2 Saturation 95.8 ABG Base Excess -2.9 FiO2 ROOM AIR Sodium 137.1 Potassium 4.2 Chloride 108 H Carbon Dioxide 20 L Anion Gap 9 BUN 17 Creatinine 0.78 Est GFR ( Amer) > 60 Est GFR (Non-Af Amer) > 60 Glucose 154 H Calcium 9.3 10/09/16 10/09/16 10/10/16 15:24 20:05 02:06 Creatine Kinase CK-MB (CK-2) 3.02 Troponin I 0.134 0.167 0.166 10/10/16 10/10/16 10/10/16 02:06 10:05 16:20 Creatine Kinase 116 CK-MB (CK-2) Troponin I 0.110 0.132 EKG Comments: Multiple 12-lead EKG is reported. All showed sinus rhythm, no acute ST-T wave changes noted. Impressions: Chest X-Ray 10/09/16 09:47 IMPRESSION: NO SIGNIFICANT RADIOGRAPHIC FINDING IN THE CHEST. Chest/Abdomen CTA 10/10/16 00:00 IMPRESSION: UNREMARKABLE CTA WITHOUT PULMONARY EMBOLI. INTERVAL DEVELOPMENT OF SUBTLE SCATTERED TREE-IN-BUD NODULES WITH GROUND-GLASS AIRSPACE DISEASE IN THE RIGHT UPPER LOBE AND LINGULA COMPATIBLE WITH INFECTIOUS OR INFLAMMATORY PNEUMONITIS. Assessment & Plan - Diagnosis (1) Elevated troponin I level Is this a current diagnosis for this admission?: Yes (2) COPD exacerbation Is this a current diagnosis for this admission?: Yes (3) Tobacco abuse Is this a current diagnosis for this admission?: Yes (4) Chest pain Qualifiers: Chest pain type: unspecified Qualified Code(s): R07.9 - Chest pain, unspecified Is this a current diagnosis for this admission?: Yes (5) Hypertension Is this a current diagnosis for this admission?: Yes (6) PVD (peripheral vascular disease) Is this a current diagnosis for this admission?: Yes - Notes Notes: Troponin I elevation: Patient has normal EKGs. This amount of troponin I elevation could eat from respiratory distress, COPD exacerbation etc. patient does however have history of smoking and PVD. Patient will benefit from an ischemia evaluation after her current condition has been stabilized. This can be even performed as an outpatient should patient remain stable. Chest discomfort: Patient described this as tightness and is associated with wheezing. Most likely related to COPD exacerbation and underlying pneumonitis. Hypertension: Reasonably well controlled. Blood pressure goal in this patient is 135/85 or less. This was discussed with the patient. Currently blood pressure under reasonable control. Better medication for this patient are MADYSON inhibitor/ARB/beta raina etc. discussed side effects of uncontrolled hypertension and also severe hypotension. PVD: No evidence of tissue ischemia or limb ischemia noted. Elevation will benefit from smoking cessation. Tobacco abuse: Patient advised smoking cessation. COPD with exacerbation: Continue current aggressive management plans. Pneumonitis noted on CT scan: Continue antibiotic therapy. 2-D echo results were reviewed. It showed normal LVEF, RV seems mildly enlarged. Please see dictated echo report for details. Patient was seen twice today and approximate 50 minutes spent. - Time Time Spent: 50 to 70 Minutes - CODE STATUS was discussed, patient remains full code. Surrogate decision-maker unchanged. Multiple medical problems were addressed.More than 50% of the time spent coordinating care, discussing management plans with involved caregivers. Management plans discussed with involved personnels. Medical decision making was of moderate complexity.
[2016-10-10] MEDS: ACETYLCYSTEINE 20% SOLN 800 MG/4 ML VIAL.NEB NEB SCH (19:38)
[2016-10-10] MEDS ORDERED: ATORVASTATIN CALCIUM 80 MG TABLET PO SCH (22:00)
[2016-10-10] MEDS: CILOSTAZOL 100 MG TABLET PO SCH (22:40)
[2016-10-11] MEDS: METHYLPREDNISOLONE INJ 125 MG/2 ML SDV IV SCH ×2 (03:01→12:16)
[2016-10-11] MEDS ORDERED: LANSOPRAZOLE 15 MG TAB.RAP.DR PO SCH (06:00)
[2016-10-11] MEDS: HYDROCODONE/ACETAMINOPHEN 5-325 MG TABLET PO PRN ×2 (07:46→16:47)
[2016-10-11] MEDS: BUDESONIDE NEB 0.5 MG/2 ML AMPUL NEB SCH ×2 (08:45→19:44)
[2016-10-11] MEDS: ACETYLCYSTEINE 20% SOLN 800 MG/4 ML VIAL.NEB NEB SCH ×2 (08:45→19:44)
[2016-10-11] MEDS: IPRATROPIUM/ALBUTEROL 0.5-2.5 MG/3 ML AMPUL NEB SCH ×4 (08:45→19:44)
[2016-10-11] MEDS ORDERED: ASPIRIN 81 MG TABLET, CHEWABLE PO SCH (10:00)
[2016-10-11] MEDS: CHOLECALCIFEROL (D3) 1,000 UNIT TABLET PO SCH (12:16)
[2016-10-11] MEDS: FAMOTIDINE 20 MG TABLET PO SCH (12:17)
[2016-10-11] MEDS: LISINOPRIL 10 MG TABLET PO SCH (12:17)
[2016-10-11] MEDS: HYDROCHLOROTHIAZIDE 12.5 MG CAPSULE PO SCH (12:18)
[2016-10-11] MEDS: CILOSTAZOL 100 MG TABLET PO SCH (12:18)
[2016-10-11] MEDS: ENOXAPARIN SODIUM INJ 80 MG/0.8 ML DISP.SYRIN SUBCUT SCH (16:13)
[2016-10-11 16:35] VITALS: BP 117/63
--- NOTE | 2016-10-11 21:53 | PROGRESS NOTE E ---
Progress Note NAME: CINDA HOUSTON : 1960 AGE: 56Y DATE: 10/11/2016 ROOM: 534 SUBJECTIVE: The patient denies any chest pain or discomfort. There is no shortness of breath. There is no wheezing. There is no PND or orthopnea. There is no further chest pain. Her troponin-I has trended down to 0.097. There is no leg edema. OBJECTIVE: GENERAL: On examination, the patient is well built and well nourished in no acute distress. HEENT: Head is atraumatic, normocephalic. Eyes: Pupils are equal, round, regular, reactive to light and accommodation. Extraocular movements normal. There is no conjunctival pallor. There is no scleral icterus. ENT is negative. NECK: Supple. There is no JVD. Carotids are equal; there is no bruit. There is no goiter. There is no lymphadenopathy. Trachea is central. LUNGS: Diminished air entry and prolonged expiration. There is hyperresonance on percussion. CARDIOVASCULAR: S1, S2 are heard. There is no S3 gallop. There is no S4 gallop. There is systolic murmur in the left sternal border and the apex. There is no rub. ABDOMEN: Soft, nontender. There is no hepatosplenomegaly. Bowel sounds are well heard. EXTREMITIES: Femorals are diminished. There is scar of left femoral-popliteal bypass. There are no femoral bruits. Leg pulses are diminished. There is no pedal edema. There is no DVT or cellulitis. There is no cyanosis or clubbing. CENTRAL NERVOUS SYSTEM: The patient is conscious, awake, alert, oriented x3 with no focal deficits. PSYCHIATRIC: The patient's judgment and insight are intact. The patient appears to be with normal affect and is not agitated. DIAGNOSTIC TESTS: Note that the patient's troponin-I has trended down to 0.097. The patient's EKG today shows sinus rhythm within normal limits. ASSESSMENT: 1. ELEVATED TROPONIN-I. This is most likely secondary to type 2 myocardial infarction which is a supply-demand mismatch secondary to acute exacerbation of chronic obstructive pulmonary disease. 2. CHRONIC OBSTRUCTIVE PULMONARY DISEASE EXACERBATION. At present, back to baseline. 3. TOBACCO ABUSE. Tobacco cessation counseling given. 4. CHEST PAIN MOST LIKELY NONCARDIAC. 5. HYPERTENSION. 6. PERIPHERAL VASCULAR DISEASE. RECOMMENDATIONS: Would continue the patient on current medications which is albuterol inhaler p.r.n. Brethine injection 1 mg per 1 mL 0.5 mg subcutaneously x1 she received. She is also on ipratropium/albuterol sulfate DuoNeb nebulizer treatment q.4 hours while awake. She is on methylprednisolone 125 mg IV q.8 hours. She is on Levaquin 750 mg IV q.p.m. She is on Pulmicort nebulizer 0.5 mg nebulizer treatment q.12 hours. She is on Lovenox 40 mg subcutaneously. She is on aspirin 81 mg daily. She is on lisinopril/hydrochlorothiazide 10/12.5 one tablet daily. She was on Lovenox at 65 mg subcutaneously q.12 hours. She is also on lisinopril 10 mg p.o. daily. She is also on hydrochlorothiazide 12.5 mg p.o. daily. She is on atorvastatin 80 mg p.o. at bedtime. Would recommend that the patient have an outpatient stress test. Note the patient's is her surrogate healthcare decision maker. The patient has no rate setter. She prefers to follow up with me after I gave her the names of 3 cardiologists who work here. We will follow the patient in the office and see if the patient needs a stress test. TIME SPENT: Note 30 minutes spent on this patient with more than 50% of the time spent in direct patient care and also coordinating care with other physicians. We will sign off the case. We will follow the patient as an outpatient. DICTATING PHYSICIAN: RANDI PLASENCIA M.D. [id number] ZAC#: [id number] ID: [id number] JOB#: [id number] ACCT: [id number] cc: >
--- NOTE | 2016-10-11 23:56 | PDOC PROGRESS REPORT ---
Subjective Progress Note for:: 10/10/16 Subjective:: Patient complains of headache. She also reports that she has not slept in days. Patient reports difficulty getting up mucus. Patient feels shortness of breath is improved with oxygen. Patient denies chest pain, abdominal pain, nausea, vomiting, fevers, chills, diarrhea, new onset weakness. Physical Exam Vital Signs: Temp Pulse Resp BP Pulse Ox 97.6 F 76 19 122/73 100 10/10/16 05:10 10/10/16 05:10 10/10/16 05:10 10/10/16 05:10 10/10/16 05:10 Intake & Output 10/09/16 10/10/16 10/11/16 06:59 06:59 06:59 Intake Total 1647 Balance 1647 Weight 67.7 kg Exam: General: Flushed, Awake alert and oriented x3, no acute respiratory distress HEENT: AT/NC, PERRL, EOMI, oropharynx is moist, pink, no scleral icterus, no conjunctival injection Neck: No JVD, trachea midline Chest: Clear to auscultation bilaterally, no wheezes rhonchi or rales; prolonged expiratory phase, tachypnea CV: Tachycardic, Regular rate and rhythm, normal S1 and S2, no murmur, rub, or gallop Abdomen: Soft, nontender to palpation, nondistended, active bowel sounds; no rebound, rigidity, or guarding Extremities: No cyanosis, clubbing or edema Neuro: Cranial nerves II through XII are grossly intact without focal deficits; awake alert and oriented x3 Psych: Anxious Results Laboratory Results: 10/10/16 02:06 10/10/16 02:06 10/10/16 10/10/16 02:06 02:06 WBC 6.4 RBC 3.61 L Hgb 11.4 L Hct 33.4 L MCV 93 MCH 31.6 MCHC 34.1 RDW 14.6 H Plt Count 267 Seg Neutrophils % 83.2 H Lymphocytes % 11.0 L Monocytes % 5.7 Eosinophils % 0.0 Basophils % 0.1 Absolute Neutrophils 5.3 Absolute Lymphocytes 0.7 Absolute Monocytes 0.4 Absolute Eosinophils 0.0 Absolute Basophils 0.0 Sodium 137.1 Potassium 4.2 Chloride 108 H Carbon Dioxide 20 L Anion Gap 9 BUN 17 Creatinine 0.78 Est GFR ( Amer) > 60 Est GFR (Non-Af Amer) > 60 Glucose 154 H Calcium 9.3 10/09/16 10/09/16 10/10/16 15:24 20:05 02:06 Creatine Kinase CK-MB (CK-2) 3.02 Troponin I 0.134 0.167 0.166 10/10/16 02:06 Creatine Kinase 116 CK-MB (CK-2) Troponin I Impressions: Chest X-Ray 10/09/16 09:47 IMPRESSION: NO SIGNIFICANT RADIOGRAPHIC FINDING IN THE CHEST. Assessment & Plan - Diagnosis (1) Acute hypoxemic respiratory failure Is this a current diagnosis for this admission?: YesPlan: Continue oxygen as needed. (2) COPD exacerbation Is this a current diagnosis for this admission?: YesPlan: Have decreased patient Solu-Medrol. Decrease her scheduled nebulized treatments. Transition patient to Xopenex. (3) Elevated troponin I level Is this a current diagnosis for this admission?: YesPlan: Have consulted cardiology and appreciate their input. This is likely secondary to cardiac strain due to her underlying pulmonic disease. No EKG changes are currently noted. (4) Tobacco abuse Is this a current diagnosis for this admission?: YesPlan: Patient is advised for greater than 2 minutes to stop smoking. Nicotine patch was provided. (5) Hypertension Qualifiers: Hypertension type: essential hypertension Qualified Code(s): I10 - Essential (primary) hypertension Is this a current diagnosis for this admission?: Yes (6) PVD (peripheral vascular disease) Is this a current diagnosis for this admission?: Yes - Time Time Spent with patient: 25-34 minutes Medications reviewed and adjusted accordingly: Yes Anticipated discharge: Home Within: within 24 hours, within 36 hours - Inpatient Certification Based on my medical assessment, after consideration of the patient's comorbidities, presenting symptoms, or acuity I expect that the services needed warrant INPATIENT care.: Yes I certify that my determination is in accordance with my understanding of Medicare's requirements for reasonable and necessary INPATIENT services [42 CFR 412.3e].: Yes Medical Necessity: Significant Comorbidiites Make Outpatient Treatment Too Risky , Need For Continuous Telemetry Monitoring, Need for Nebulizer Therapy and Monitoring of Response Post Hospital Care: D/C Manager Electrical Documentation
--- NOTE | 2016-10-13 08:09 | PDOC DISCHARGE SUMMARY ---
General - Admit/Disc Date/PCP Admission Date/Primary Care Provider: 10/09/16 12:47 FATIMAH MCNALLY MD Discharge Date: 10/11/16 - Discharge Diagnosis (1) Acute hypoxemic respiratory failure Is this a current diagnosis for this admission?: Yes (2) COPD exacerbation Is this a current diagnosis for this admission?: Yes (3) Elevated troponin I level Is this a current diagnosis for this admission?: Yes (4) Tobacco abuse Is this a current diagnosis for this admission?: Yes (5) Hypertension Is this a current diagnosis for this admission?: Yes (6) PVD (peripheral vascular disease) Is this a current diagnosis for this admission?: Yes - Additional Information Resuscitation Status: Full Code Discharge Diet: Cardiac Discharge Activity: Activity As Tolerated Home Medications: Albuterol Sulfate [Proair HFA] 2 puff IH Q6HP PRN 10/09/16 Aspirin [Aspirin 81 mg Chewable Tablet] 81 mg PO DAILY 10/09/16 Atorvastatin Calcium [Lipitor 80 mg Tablet] 80 mg PO QHS 10/09/16 Cholecalciferol (Vitamin D3) [Vitamin D3 2000 unit Tablet] 2,000 unit PO DAILY 10/09/16 Cilostazol [Pletal 100 mg Tablet] 100 mg PO BID 10/09/16 Hydrocodone Bit/Acetaminophen [Hydrocodon-Acetaminophen 5-325] 1 each PO Q6HP PRN 10/09/16 Lisinopril/Hydrochlorothiazide [Lisinopril-Hctz 10-12.5 mg Tab] 1 tab PO DAILY 10/09/16 Omeprazole 20 mg PO DAILY 10/09/16 Alprazolam [Xanax 0.25 mg Tablet] 0.25 mg PO BIDP PRN #10 tablet 10/11/16 Levofloxacin [Levaquin 750 mg Tablet] 750 mg PO DAILY #10 tab 10/11/16 Prednisone 60 mg PO BID #36 tablet 10/11/16 Tiotropium [place] [Spiriva Handihaler 18 mcg/dose (30 Dose)] 1 cap IH DAILY # 30 capsule 10/11/16 History of Present Illness History of Present Illness: CINDA HOUSTON is a 56 year old female who presents to the ED in respiratory distress. On 10/06/2016 she was seen at an urgent care center and treated with a breathing treatment and a course of Zithromax. As she did not improve, she presented to the [place] ED on 10/08/2016 where she was evaluated for the same. She was found to be wheezy. Her laboratory work and CTA of the chest were unremarkable. Again she received breathing treatments but was discharged home. The patient returns today to the [place] ED and worsened respiratory distress. She has been given several breathing treatments and dose of intravenous Solu- Medrol. She is using supplemental oxygen. Her O2 saturation is within normal limits but she remains tightly wheezy, with a sense of dyspnea. The patient is to be admitted for acute exacerbation of COPD. Hospital Course Hospital Course: Patient was transitioned to low dose steroid easily with improvement. Patient also had a significant component of anxiety to her sense of dyspnea which was relieved with xanax. Patient had an elevation of her troponin while hospitalized. She was seen by cardiology who felt that this was secondary to her respiratory distress. Patient underwent echocardiogram which revealed a normal ejection fraction. She is recommended to follow-up as an outpatient for a stress test. Patient was doing well and not requiring oxygen when she is discharged. Physical Exam Vital Signs: Temp Pulse Resp BP Pulse Ox 97.8 F 75 16 117/63 97 10/11/16 16:31 10/11/16 16:31 10/11/16 16:31 10/11/16 16:31 10/11/16 16:31 Intake & Output 10/10/16 10/11/16 10/12/16 06:59 06:59 06:59 Intake Total 1647 2735 Balance 1647 2735 Weight 67.7 kg 67.7 kg Exam: General: Awake alert and oriented x3, no acute respiratory distress HEENT: AT/NC, PERRL, EOMI, oropharynx is moist, pink, no scleral icterus, no conjunctival injection Neck: No JVD, trachea midline Chest: Clear to auscultation bilaterally, no wheezes rhonchi or rales; prolonged expiratory phase CV: Regular rate and rhythm, normal S1 and S2, no murmur, rub, or gallop Abdomen: Soft, nontender to palpation, nondistended, active bowel sounds; no rebound, rigidity, or guarding Extremities: No cyanosis, clubbing or edema Neuro: Cranial nerves II through XII are grossly intact without focal deficits; awake alert and oriented x3 Psych: Anxious Results Laboratory Results: 10/10/16 02:06 10/10/16 02:06 10/09/16 10/09/16 10/10/16 15:24 20:05 02:06 Creatine Kinase CK-MB (CK-2) 3.02 Troponin I 0.134 0.167 0.166 10/10/16 10/10/16 10/10/16 02:06 10:05 16:20 Creatine Kinase 116 CK-MB (CK-2) Troponin I 0.110 0.132 10/10/16 10/11/16 22:05 03:49 Creatine Kinase CK-MB (CK-2) Troponin I 0.115 0.097 Impressions: Chest X-Ray 10/09/16 09:47 IMPRESSION: NO SIGNIFICANT RADIOGRAPHIC FINDING IN THE CHEST. Chest/Abdomen CTA 10/10/16 00:00 IMPRESSION: UNREMARKABLE CTA WITHOUT PULMONARY EMBOLI. INTERVAL DEVELOPMENT OF SUBTLE SCATTERED TREE-IN-BUD NODULES WITH GROUND-GLASS AIRSPACE DISEASE IN THE RIGHT UPPER LOBE AND LINGULA COMPATIBLE WITH INFECTIOUS OR INFLAMMATORY PNEUMONITIS. Qualifiers PATEINT BEING DISCHARGED WITH ANY OF THE FOLLOWING DIAGNOSIS?: No Plan Time Spent: Less than 30 Minutes
== END 2016-10-11 18:00 | disposition home or self-care (01) | DRG 190 ==
LOC: ER 09:36 → EH 12:38 → UNDOADMIN 12:38 → EH 12:47 → 5 21:02
PROVIDERS: ADMIT Internal Medicine; ATTEND Internal Medicine
PROC: 3E0F73Z Introduction of Anti-inflammatory into Respiratory Tract, Via Natural or Artificial Opening (ICD-10-PCS; principal; 2016-10-09)
DX: J44.1 Chronic obstructive pulmonary disease with (acute) exacerbation (principal); J96.01 Acute respiratory failure with hypoxia; I10 Essential (primary) hypertension; I73.9 Peripheral vascular disease, unspecified; J45.909 Unspecified asthma, uncomplicated; K21.9 Gastro-esophageal reflux disease without esophagitis; F32.9 Major depressive disorder, single episode, unspecified; D64.9 Anemia, unspecified; F17.210 Nicotine dependence, cigarettes, uncomplicated; Z79.82 Long term (current) use of aspirin; Z79.899 Other long term (current) drug therapy; Z86.718 Personal history of other venous thrombosis and embolism; Z85.828 Personal history of other malignant neoplasm of skin; Z88.1 Allergy status to other antibiotic agents; Z88.6 Allergy status to analgesic agent; Z88.8 Allergy status to other drugs, medicaments and biological substances; Z88.0 Allergy status to penicillin
CPT/HCPCS: 36415; 36600; 71020; 71275; 80048; 80053; 82550; 82553; 82803; 83690; 83735; 84100; 84484; 85025; 85610; 93005; 93010; 93306; 94640; 94667; 94799; 96365; 96372; 99285; J1650; J1956; J2930; J3105; J3475; J7620

== ENCOUNTER 2016-12-18 10:24 | Emergency (ER) | payer MEDICAID ==
[2016-12-18] MEDS ORDERED: IBUPROFEN 800 MG TABLET PO ONE (10:57)
--- NOTE | 2016-12-18 11:17 | ER Document Report ---
HPI - HPI Patient complains to provider of: knee pain Pain Level: 3 Context: Patient is a 56 old female presents emergency Department complaining of right knee pain for the past week. She denies any trauma or injury, fall. Patient states that the pain is on the lateral aspect of the right knee and spreads up towards her right hip. She denies any previous pain like this before. Denies any history of gout. Patient able to ambulate. - CARDIOVASCULAR Cardiovascular: DENIES: Chest pain - REPRODUCTIVE Reproductive: DENIES: : - DERM Skin Color: Normal Past Medical History - Social History Smoking Status: Current Every Day Smoker Chew tobacco use (# tins/day): No Frequency of alcohol use: None Drug Abuse: None Family History: Reviewed & Not Pertinent Patient has suicidal ideation: No Patient has homicidal ideation: No - Past Medical History Cardiac Medical History: Reports: Hx DVT, Hx Hypertension, Hx Peripheral Vascular Disease Denies: Hx Coronary Artery Disease, Hx Heart Attack Pulmonary Medical History: Reports: Hx Asthma, Hx Bronchitis - Once yearly, Hx COPD, Hx Pneumonia - Aug 2014 Neurological Medical History: Denies: Hx Cerebrovascular Accident, Hx Seizures Renal/ Medical History: Denies: Hx Peritoneal Dialysis Malignancy Medical History: Reports: Hx Skin Cancer GI Medical History: Reports: Hx Gastroesophageal Reflux Disease, Hx Ulcer Musculoskeltal Medical History: Denies Hx Arthritis Psychiatric Medical History: Reports: Hx Depression Past Surgical History: Reports: Hx Section - x3, Hx Vascular Surgery - Left aoro-fem bypass Apr 2015. Denies: Hx Hysterectomy - Immunizations Hx Diphtheria, Pertussis, Tetanus Vaccination: Yes Hx Pneumococcal Vaccination: 05/13/14 Vertical Provider Document - CONSTITUTIONAL Agree With Documented VS: Yes Exam Limitations: No Limitations General Appearance: WD/WN, No Apparent Distress Notes: PHYSICAL EXAM GENERAL: Alert, interacts well. EXTREMITIES: Moves all 4 extremities spontaneously. No edema, radial and dorsalis pedis pulses 2/4 bilaterally. No cyanosis. Minimal pain to palpation of the right lateral knee. Negative anterior, posterior drawer. Negative valgus and varus. Negative Apley's NEUROLOGICAL: Alert and oriented x4. Normal speech. PSYCH: Normal affect, normal mood. SKIN: Warm, dry, normal turgor. No rashes or lesions noted. - INFECTION CONTROL TRAVEL OUTSIDE OF THE [place] IN LAST 30 DAYS: No - RESPIRATORY O2 Sat by Pulse Oximetry: 98 Course - Re-evaluation Re-evalutation: 12/18/16 15:33 Patient's pain is consistent with IT band syndrome. No evidence of osteoarthritis on x-ray as well as fracture dislocation. Educated patient on diagnosis and told her to follow up with primary care physician if symptoms do not improve with home management. - Vital Signs Vital signs: Temp Pulse Resp BP Pulse Ox 97.8 F 77 18 133/88 H 98 12/18/16 10:27 12/18/16 10:27 12/18/16 10:27 12/18/16 10:27 12/18/16 10:27 - Diagnostic Test Radiology reviewed: Image reviewed, Reports reviewed Discharge - Discharge Clinical Impression: Knee pain Condition: Good Disposition: HOME, SELF-CARE Instructions: Use of [id number] Ibuprofen ([facility]) Referrals: FATIMAH MCNALLY MD [Primary Care Provider] - Follow up as needed
[2016-12-18 11:40] VITALS: BP 102/67
== END 2016-12-18 11:40 | disposition home or self-care (01) ==
LOC: ER 10:24
DX: M25.561 Pain in right knee (principal); F17.200 Nicotine dependence, unspecified, uncomplicated; Z86.718 Personal history of other venous thrombosis and embolism; I10 Essential (primary) hypertension; J44.9 Chronic obstructive pulmonary disease, unspecified; Z85.828 Personal history of other malignant neoplasm of skin
CPT/HCPCS: 99283; 73562; J3490

== ENCOUNTER 2017-03-04 09:31 | Emergency (ER) | payer MEDICAID ==
--- NOTE | 2017-03-04 09:56 | ER Document Report ---
ED Dizziness/Weakness - General Chief Complaint: General Weakness Stated Complaint: WEAKNESS Time Seen by Provider: 03/04/17 09:56 Mode of Arrival: Ambulatory Information source: Patient Notes: 57 yo hypertensive, smoker, RLQ abdominal hernia (sched repair in 2 weeks), hiatal hernia , chronic swelling left leg, femoral bypass graft (left doppler pulse), PVD, 40 second TIA 3 years ago, hyperlipedemic, non diabetic, asthma/ copd, arthritis knees, female c/o generalized weakness and sleepiness since yesterday morning. Left shoulder blade pain started last night at 11 pm until she went to sleep. [place] it again after she got up it started hurting again, lasted 1 hour, stopped spontaneously. Thought it would get better but it didn't , the symptoms start when she gets up. A little headache left temporal this am. Stress test November negative-Dr. Leon. Also, Proc[employer] health to clear for the surgery, he just listened to the heart and said everything was OK. Dad- CAD onset age 42. PCP: Jazmyne. TRAVEL OUTSIDE OF THE [place] IN LAST 30 DAYS: No - Related Data Allergies/Adverse Reactions: amoxicillin [Amoxicillin] Allergy (Severe, Verified 12/18/16 10:26) Anaphylaxis cyclobenzaprine HCl [From Flexeril] Allergy (Severe, Verified 12/18/16 10:26) Anaphylaxis tramadol [Tramadol] Allergy (Severe, Verified 12/18/16 10:26) Anaphylaxis Past Medical History - General Information source: Patient - Social History Smoking Status: Current Every Day Smoker Chew tobacco use (# tins/day): No Frequency of alcohol use: None Drug Abuse: None Lives with: Spouse/Significant other Family History: Reviewed & Not Pertinent Patient has suicidal ideation: No Patient has homicidal ideation: No - Past Medical History Cardiac Medical History: Reports: Hx DVT, Hx Hypertension, Hx Peripheral Vascular Disease Pulmonary Medical History: Reports: Hx Asthma, Hx Bronchitis - Once yearly, Hx COPD, Hx Pneumonia - Aug 2014 Neurological Medical History: Reports: Other - 40 second TIA 3 years ago Renal/ Medical History: Denies: Hx Peritoneal Dialysis Malignancy Medical History: Reports: Hx Skin Cancer GI Medical History: Reports: Hx Gastroesophageal Reflux Disease, Hx Hiatal Hernia, Hx Ulcer, Other - RLQ abdominal wall hernia Psychiatric Medical History: Reports: Hx Depression Past Surgical History: Reports: Hx Section - x3, Hx Vascular Surgery - Left aoro-fem bypass Apr 2015 - Immunizations Hx Diphtheria, Pertussis, Tetanus Vaccination: Yes Hx Pneumococcal Vaccination: 05/13/14 Review of Systems - Review of Systems Constitutional: See HPI EENT: No symptoms reported Cardiovascular: No symptoms reported Respiratory: No symptoms reported Gastrointestinal: No symptoms reported Genitourinary: No symptoms reported Female Genitourinary: No symptoms reported Musculoskeletal: See HPI Skin: No symptoms reported Hematologic/Lymphatic: No symptoms reported Neurological/Psychological: No symptoms reported Physical Exam - Vital signs Vitals: Temp Pulse BP Pulse Ox 97.6 F 92 150/80 H 99 03/04/17 09:34 03/04/17 09:34 03/04/17 09:34 03/04/17 09:34 Interpretation: Normal - General General appearance: Appears well, Alert In distress: None - HEENT Head: Normocephalic, Atraumatic Eyes: Normal Conjunctiva: Normal Pupils: PERRL Neck: Supple. No: Lymphadenopathy - Respiratory Respiratory status: No respiratory distress Chest status: Nontender Breath sounds: Normal Chest palpation: Normal - Cardiovascular Rhythm: Regular Heart sounds: Normal auscultation Murmur: No - Abdominal Inspection: Normal Distension: No distension Bowel sounds: Normal Tenderness: Nontender Organomegaly: No organomegaly, Other - non tender RLQ abd wall hernia - Back Back: Normal, Nontender - Extremities General upper extremity: Normal inspection, Nontender, Normal color, Normal ROM , Normal temperature General lower extremity: Normal inspection, Nontender, Normal color, Normal ROM , Normal temperature, Normal weight bearing. No: Nessa's sign - Neurological Neuro grossly intact: Yes Cognition: Normal Orientation: AAOx4 Anitha Coma Scale Eye Opening: Spontaneous Anitha Coma Scale Verbal: Oriented Anitha Coma Scale Motor: Obeys Commands Anitha Coma Scale Total: 15 Speech: Normal Motor strength normal: LUE, RUE, LLE, RLE Sensory: Normal - Psychological Associated symptoms: Normal affect, Normal mood - Skin Skin Temperature: Warm Skin Moisture: Dry Skin Color: Normal Course - Re-evaluation Re-evalutation: 03/04/17 11:[address] cummings for disposition afer reviewing the case. labs, ekg, cxr which are all normal. Ua normal, cx pending. OK to go home with dx weakness and sleepiness, see her doctor in the morning. 03/04/17 11:36 - Vital Signs Vital signs: Temp Pulse Resp BP Pulse Ox 97.6 F 69 17 132/81 H 97 03/04/17 09:34 03/04/17 10:25 03/04/17 11:09 03/04/17 10:27 03/04/17 11:09 - Laboratory Result Diagrams: 03/04/17 09:45 03/04/17 09:45 Laboratory results interpreted by me: 03/04/17 03/04/17 09:45 09:45 Est GFR (Non-Af Amer) 58 L Urine Blood SMALL H Discharge - Discharge Clinical Impression: weakness and sleepiness Condition: Good Disposition: HOME, SELF-CARE Instructions: Weakness ([facility]), Fatigue ([facility]) Additional Instructions: see your doctor tomorrow copy of work up done today given to you to er if new or worsening symptoms Please complete the patient satisfaction survey if you get one, and return it.. If you do not receive a survey, then you can go to the [facility] website, [email or web address] and place your comments about your very good care. Thank you very much. It was a pleasure being your medical provider today. Forms: Return to Work Referrals: FATIMAH MCNALLY MD [Primary Care Provider] - Follow up tomorrow
[2017-03-04 10:08] LABS: ABSOLUTE EOSINOPHILS # (AUTO) 0.1 10^3/uL (0.0-0.6); ABSOLUTE LYMPHOCYTES (AUTO) 1.5 10^3/uL (0.5-4.7); ABSOLUTE MONOCYTES (AUTO) 0.6 10^3/uL (0.1-1.4); ABSOLUTE NEUT (AUTO) 4.2 10^3/uL (1.7-8.2); APPEARANCE,URINE CLEAR; BASOPHILS % (AUTO) 0.6 % (0-2); BILIRUBIN,URINE NEGATIVE (NEGATIVE); EOSINOPHILS % (AUTO) 2.1 % (0-6); GLUCOSE, URINE NEGATIVE (NEGATIVE); HEMATOCRIT 38.3 % (36.0-47.0); HGB HCT DIFFERENCE 0.7; KETONES,URINE NEGATIVE (NEGATIVE); LEUKOCYTE ESTERASE,URINE NEGATIVE (NEGATIVE); MEAN CORPUSCULAR HEMOGLOBIN 31.8 pg (27.0-33.4); MEAN CORPUSCULAR HGB CONC 33.9 g/dL (32.0-36.0); MEAN CORPUSCULAR VOLUME 94 fl (80-97); MONOCYTES % (AUTO) 9.9 % (3-13); NITRITE,URINE NEGATIVE (NEGATIVE); PROTEIN,URINE NEGATIVE (NEGATIVE); RED BLOOD COUNT 4.07 10^6/uL (3.72-5.28); RED CELL DISTRIBUTION WIDTH 13.7 % (11.5-14.0); SEGMENTED NEUTROPHILS % (AUTO) 64.4 % (42-78); URINE SPECIFIC GRAVITY 1.011; UROBILINOGEN,URINE NEGATIVE mg/dL (<2.0); WHITE BLOOD COUNT 6.5 10^3/uL (4.0-10.5)
[2017-03-04 10:26] LABS: ALANINE AMINOTRANSFERASE 26 U/L (9-52); ALBUMIN 3.9 g/dL (3.5-5.0); ALKALINE PHOSPHATASE 81 U/L (38-126); ANION GAP 8 (5-19); ASPARTATE AMINO TRANSFERASE 16 U/L (14-36); BILIRUBIN,DIRECT 0.3 mg/dL (0.0-0.4); BILIRUBIN,TOTAL 0.4 mg/dL (0.2-1.3); BLOOD UREA NITROGEN 15 mg/dL (7-20); CALCIUM 9.5 mg/dL (8.4-10.2); CARBON DIOXIDE 27 mmol/L (22-30); CHLORIDE 103 mmol/L (98-107); CREATINE KINASE 79 U/L (30-135); CREATININE RESULT 0.98 mg/dL (0.52-1.25); GLUCOSE 97 mg/dL (75-110); POTASSIUM 3.9 mmol/L (3.6-5.0); SODIUM 138.3 mmol/L (137-145); TOTAL PROTEIN 6.6 g/dL (6.3-8.2)
[2017-03-04 10:37] LABS: CREATINE KINASE MB 0.87 ng/mL (<4.55)
[2017-03-04 10:38] LABS: TROPONIN I < 0.012 ng/mL
--- NOTE | 2017-03-04 11:12 | RADIOLOGY REPORT (SQ) ---
EXAM DESCRIPTION: CHEST PA/LAT COMPLETED DATE/TIME: 03/04/2017 11:00 am REASON FOR STUDY: weakness COMPARISON: 10/09/2016 EXAM PARAMETERS: NUMBER OF VIEWS: two views TECHNIQUE: Digital Frontal and Lateral radiographic views of the chest acquired. RADIATION DOSE: NA LIMITATIONS: none FINDINGS: LUNGS AND PLEURA: No opacities, masses or pneumothorax. No pleural effusion. MEDIASTINUM AND HILAR STRUCTURES: No masses or contour abnormalities. HEART AND VASCULAR STRUCTURES: Heart normal size. No evidence for failure. BONES: No acute findings. HARDWARE: None in the chest. OTHER: No other significant finding. IMPRESSION: NO SIGNIFICANT RADIOGRAPHIC FINDING IN THE CHEST. TECHNICAL DOCUMENTATION: JOB ID: [id number] [employer]- All Rights Reserved
[2017-03-04 11:55] VITALS: BP 128/83
--- NOTE | 2017-03-04 13:05 | EKG REPORT ---
SEVERITY:- NORMAL ECG - SINUS RHYTHM : Confirmed by: Tayler Alexander MD 04-Mar-2017 13:04:38
== END 2017-03-04 11:54 | disposition home or self-care (01) ==
LOC: ER 09:31
DX: R53.1 Weakness (principal); R53.83 Other fatigue; I10 Essential (primary) hypertension; M79.89 Other specified soft tissue disorders; F17.200 Nicotine dependence, unspecified, uncomplicated
CPT/HCPCS: 36415; 71020; 80053; 81001; 82550; 82553; 84484; 85025; 87086; 93005; 93010; 99285

== ENCOUNTER 2017-05-23 09:24 | Emergency (ER) | payer MEDICAID ==
--- NOTE | 2017-05-23 10:36 | ER Document Report ---
ED Neck/Back Problem - General Chief Complaint: Back Pain Stated Complaint: BACK AND LEG PAIN Time Seen by Provider: 05/23/17 10:36 Notes: 57-year-old female to the emergency department chief complaint of low back pain with pain in the left buttock radiating down the back of the left leg. Followed regularly by vascular surgery. Previous history of iliac bypass. States that she has chronic left leg pain and swelling. Scheduled to see a vessel specialist in 1 week. She describes the pain as achy in the left piriformis/left buttock area. No fever. No change in bowel or bladder function. No abdominal pain. Current Medication List Discontinued Medications Generic Name Dose Route Start Last Admin Trade Name Freq PRN Reason Stop Dose Admin Acetaminophen 975 mg 05/23/17 11:08 05/23/17 11:15 Tylenol 325 Mg Tablet PO 05/23/17 11:09 975 mg NOW ONE Administration TRAVEL OUTSIDE OF THE [place] IN LAST 30 DAYS: No - Related Data Allergies/Adverse Reactions: amoxicillin [Amoxicillin] Allergy (Severe, Verified 12/18/16 10:26) Anaphylaxis cyclobenzaprine HCl [From Flexeril] Allergy (Severe, Verified 12/18/16 10:26) Anaphylaxis tramadol [Tramadol] Allergy (Severe, Verified 12/18/16 10:26) Anaphylaxis Past Medical History - Social History Smoking Status: Current Every Day Smoker Chew tobacco use (# tins/day): No Frequency of alcohol use: None Drug Abuse: None Family History: Reviewed & Not Pertinent - Past Medical History Cardiac Medical History: Reports: Hx DVT, Hx Hypertension, Hx Peripheral Vascular Disease Denies: Hx Coronary Artery Disease, Hx Heart Attack Pulmonary Medical History: Reports: Hx Asthma, Hx Bronchitis - Once yearly, Hx COPD, Hx Pneumonia - Aug 2014 Neurological Medical History: Denies: Hx Cerebrovascular Accident, Hx Seizures Renal/ Medical History: Denies: Hx Peritoneal Dialysis Malignancy Medical History: Reports: Hx Skin Cancer GI Medical History: Reports: Hx Gastroesophageal Reflux Disease, Hx Hiatal Hernia, Hx Ulcer Musculoskeltal Medical History: Denies Hx Arthritis Psychiatric Medical History: Reports: Hx Depression Past Surgical History: Reports: Hx Section - x3, Hx Vascular Surgery - Left aoro-fem bypass Apr 2015. Denies: Hx Hysterectomy - Immunizations Hx Diphtheria, Pertussis, Tetanus Vaccination: Yes Hx Pneumococcal Vaccination: 05/13/14 Review of Systems - Review of Systems Constitutional: No symptoms reported EENT: No symptoms reported Cardiovascular: No symptoms reported Respiratory: No symptoms reported Gastrointestinal: No symptoms reported Genitourinary: No symptoms reported Female Genitourinary: No symptoms reported Musculoskeletal: Back pain, Muscle pain Skin: No symptoms reported Hematologic/Lymphatic: No symptoms reported Neurological/Psychological: No symptoms reported, Numbness, Tingling Physical Exam - Vital signs Vitals: Temp Pulse Resp BP Pulse Ox 97.6 F 86 19 147/85 H 98 05/23/17 09:31 05/23/17 09:31 05/23/17 09:31 05/23/17 09:31 05/23/17 09:31 Interpretation: Normal - General General appearance: Appears well, Alert - HEENT Head: Normocephalic, Atraumatic Eyes: Normal Pupils: PERRL - Respiratory Respiratory status: No respiratory distress Chest status: Nontender Breath sounds: Normal Chest palpation: Normal - Cardiovascular Rhythm: Regular Heart sounds: Normal auscultation Murmur: No Normal capillary refill: Yes - Abdominal Inspection: Normal Distension: No distension Bowel sounds: Normal Tenderness: Nontender Organomegaly: No organomegaly - Back Back: Normal, Nontender - Extremities General upper extremity: Normal inspection, Nontender, Normal color, Normal ROM , Normal temperature. No: Edema General lower extremity: Normal inspection, Nontender, Normal color, Normal ROM , Normal temperature, Normal weight bearing. No: Edema, Nessa's sign Foot: Other - There is some edema noted to the left lower extremity as compared to the left. Pulses are present bilateral lower extremities. Pulses are also dopplerable of the dorsalis pedis on the left. No significant calf tenderness. - Neurological Neuro grossly intact: Yes Cognition: Normal Orientation: AAOx4 [place] Coma Scale Eye Opening: Spontaneous [place] Coma Scale Verbal: Oriented Anitha Coma Scale Motor: Obeys Commands [place] Coma Scale Total: 15 Speech: Normal Motor strength normal: LUE, RUE, LLE, RLE Sensory: Normal - Psychological Associated symptoms: Normal affect, Normal mood - Skin Skin Temperature: Warm Skin Moisture: Dry Skin Color: Normal Course - Re-evaluation Re-evalutation: 05/23/17 11:08 A Doppler ultrasound performed at bedside which revealed good pulses to the left lower extremity. Patient localizing most of her symptoms to the piriformis /sciatic area. Pain is running down the back of her leg. No pain in the calf. Does have some low back pain. Is scheduled to see a vessel specialist in 1 week. At this time, we will give her some Tylenol and prescribe her a muscle relaxant. Reluctant to give her a NSAID as she is on a platelet medication called Pletal and this could decrease the effectiveness of it. Patient does have a history of a iliac bypass with chronic swelling of the left lower extremity. I do not feel this represents a blood clot or vascular issue at this time. Have advised her to return immediately if she develops any worsening swelling, pain, numbness, loss of bowel or bladder function, severe abdominal pain or any other concerns. Scribe her some baclofen to be used as an outpatient and advised her to try taking Tylenol as well. - Vital Signs Vital signs: Temp Pulse Resp BP Pulse Ox 97.3 F 77 18 142/87 H 98 05/23/17 11:20 05/23/17 11:20 05/23/17 11:20 05/23/17 11:20 05/23/17 11:20 Discharge - Discharge Clinical Impression: Low back pain with sciatica Condition: Good Disposition: HOME, SELF-CARE Instructions: Low Back Pain ([facility]) Additional Instructions: Sciatica Your symptoms suggest "sciatica." The pain of sciatica typically radiates down the leg. Numbness in the foot or calf may also occur. Sciatica is caused by irritation of the sciatic nerve or its branches. The irritation can be due to a herniated disk in the spine, swelling and inflammation in the muscles surrounding the sciatic nerve, or direct injury of the nerve itself. Most cases of sciatica will resolve with medical treatment. Bed rest is usually recommended initially. Surgery is only necessary when the condition will not improve with rest and antiinflammatory medication. Muscle relaxers are often given if muscle soreness is present. A CAT scan of the back may be performed if a herniated disk is suspected. Re-examination is necessary if you develop increasing numbness, localized weakness in the foot or ankle, or if the pain does not respond to rest. If you develop any of the following but not limited to please return immediately : High fever, numbness of the left leg getting worse, increased swelling of the left leg, severe abdominal pain, loss of bowel or bladder function or other concerns. Prescriptions: Baclofen [Baclofen 10 mg Tablet] 10 mg PO TID #21 tablet Referrals: FATIMAH MCNALLY MD [Primary Care Provider] - Follow up as needed
[2017-05-23] MEDS ORDERED: ACETAMINOPHEN 325 MG TABLET PO ONE (11:08)
[2017-05-23 11:23] VITALS: BP 142/87
== END 2017-05-23 11:20 | disposition home or self-care (01) ==
LOC: ER 09:24
DX: M54.42 Lumbago with sciatica, left side (principal); M79.605 Pain in left leg; G89.29 Other chronic pain; M79.89 Other specified soft tissue disorders; F17.200 Nicotine dependence, unspecified, uncomplicated
CPT/HCPCS: 99283; J3490

== ENCOUNTER 2017-06-22 14:11 | Emergency (ER) | payer MEDICAID ==
--- NOTE | 2017-06-22 15:11 | ER Document Report ---
HPI - HPI Pain Level: 4 - REPRODUCTIVE Reproductive: DENIES: : - DERM Skin Color: Normal Past Medical History - Social History Family History: Reviewed & Not Pertinent Patient has suicidal ideation: No Patient has homicidal ideation: No - Past Medical History Cardiac Medical History: Reports: Hx DVT, Hx Hypertension, Hx Peripheral Vascular Disease Denies: Hx Coronary Artery Disease, Hx Heart Attack Pulmonary Medical History: Reports: Hx Asthma, Hx Bronchitis - Once yearly, Hx COPD, Hx Pneumonia - Aug 2014 Neurological Medical History: Denies: Hx Cerebrovascular Accident, Hx Seizures Renal/ Medical History: Denies: Hx Peritoneal Dialysis Malignancy Medical History: Reports: Hx Skin Cancer GI Medical History: Reports: Hx Gastroesophageal Reflux Disease, Hx Hiatal Hernia, Hx Ulcer Musculoskeltal Medical History: Denies Hx Arthritis Psychiatric Medical History: Reports: Hx Depression Past Surgical History: Reports: Hx Section - x3, Hx Vascular Surgery - Left aoro-fem bypass Apr 2015. Denies: Hx Hysterectomy - Immunizations Hx Diphtheria, Pertussis, Tetanus Vaccination: Yes Hx Pneumococcal Vaccination: 05/13/14 Vertical Provider Document - INFECTION CONTROL TRAVEL OUTSIDE OF THE [place] IN LAST 30 DAYS: No - RESPIRATORY O2 Sat by Pulse Oximetry: 98 Course - Vital Signs Vital signs: Temp Pulse Resp BP Pulse Ox 97.8 F 93 20 145/86 H 98 06/22/17 14:16 06/22/17 14:16 06/22/17 14:16 06/22/17 14:16 06/22/17 14:16
[2017-06-22] MEDS ORDERED: HYDROCODONE/ACETAMINOPHEN 5-325 MG TABLET PO ONE (16:29)
--- NOTE | 2017-06-22 16:35 | ER Document Report ---
ED Neck/Back Problem - General Chief Complaint: Hip Pain Stated Complaint: BACK PAIN Time Seen by Provider: 06/22/17 15:11 Mode of Arrival: Ambulatory Information source: Patient Notes: 57-year-old female presents to ED for complaint of back pain for a while. She states she has been seeing [facility] for the same complaint and has also seen Dr. Gr a back specialist. She states he has put some shots in her back multiple times. She is also had shots in her hips for the pain. She states that the pain is much worse since the shots than before. She is supposed to go back Sunday for more testing and follow-up. TRAVEL OUTSIDE OF THE [place] IN LAST 30 DAYS: No - HPI Patient complains to provider of: Pain, Lower back Onset: Other - Chronic Onset: Chronic Timing: Still present Severity: Moderate Pain Level: 4 Context: Other - Sharp throbbing Recent injury: No Associated symptoms: Like prior neck/back pain, Radiation to leg, Lower back pain Exacerbated by: Movement of trunk Relieved by: Nothing Similar symptoms previously: Yes Recently seen / treated by doctor: Yes - Related Data Allergies/Adverse Reactions: amoxicillin [Amoxicillin] Allergy (Severe, Verified 06/22/17 14:17) Anaphylaxis cyclobenzaprine HCl [From Flexeril] Allergy (Severe, Verified 06/22/17 14:17) Anaphylaxis tramadol [Tramadol] Allergy (Severe, Verified 06/22/17 14:17) Anaphylaxis Past Medical History - General Information source: Patient - Social History Smoking Status: Current Every Day Smoker Cigarette use (# per day): Yes - Half a pack per day Chew tobacco use (# tins/day): No Smoking Education Provided: Yes - Less than 2 minutes Frequency of alcohol use: None Drug Abuse: None Occupation: None Lives with: Family Family History: Arthritis, CAD, COPD, Hyperlipidemia, Hypertension, Malignancy. denies: CVA, DM, Thyroid Disfunction Patient has suicidal ideation: No Patient has homicidal ideation: No - Past Medical History Cardiac Medical History: Reports: Hx DVT, Hx Hypertension, Hx Peripheral Vascular Disease Pulmonary Medical History: Reports: Hx Asthma, Hx Bronchitis - Once yearly, Hx COPD, Hx Pneumonia - Aug 2014 EENT Medical History: Reports: None Neurological Medical History: Reports: None Endocrine Medical History: Reports: None Renal/ Medical History: Reports: None Malignancy Medical History: Reports: Hx Skin Cancer GI Medical History: Reports: Hx Gastroesophageal Reflux Disease, Hx Hiatal Hernia, Hx Ulcer Musculoskeltal Medical History: Reports Hx Arthritis, Reports Hx Musculoskeletal Deformity Skin Medical History: Reports None Psychiatric Medical History: Reports: Hx Depression Traumatic Medical History: Reports: None Infectious Medical History: Reports: None Past Surgical History: Reports: Hx Section - x3, Hx Vascular Surgery - Left aoro-fem bypass Apr 2015 - Immunizations Hx Diphtheria, Pertussis, Tetanus Vaccination: Yes Hx Pneumococcal Vaccination: 05/13/14 Review of Systems - Review of Systems Constitutional: No symptoms reported EENT: No symptoms reported Cardiovascular: No symptoms reported Respiratory: No symptoms reported Gastrointestinal: No symptoms reported Genitourinary: No symptoms reported Female Genitourinary: No symptoms reported Musculoskeletal: Back pain, Muscle pain, Muscle stiffness Skin: No symptoms reported Hematologic/Lymphatic: No symptoms reported Neurological/Psychological: No symptoms reported Physical Exam - Vital signs Vitals: Temp Pulse Resp BP Pulse Ox 97.8 F 93 20 145/86 H 98 06/22/17 14:16 06/22/17 14:16 06/22/17 14:16 06/22/17 14:16 06/22/17 14:16 Interpretation: Normal - General General appearance: Appears well, Alert - HEENT Head: Normocephalic, Atraumatic Eyes: Normal Pupils: PERRL - Respiratory Respiratory status: No respiratory distress Chest status: Nontender Breath sounds: Normal Chest palpation: Normal - Cardiovascular Rhythm: Regular Heart sounds: Normal auscultation Murmur: No - Abdominal Inspection: Normal Distension: No distension Bowel sounds: Normal Tenderness: Nontender Organomegaly: No organomegaly - Back Back: Normal, Tender. No: Deformity/step-off, CVA tenderness, Vertebra tenderness, Scars, Scoliosis, Wounds Notes: No signs of cauda equina, no saddle anesthesia and no loss of control of bowel bladder, no loss control of muscles to legs, and no decrease in sensation to legs. Patient able to walk with a steady gait. Patient moving around in the bed freely. Patient asking for narcotics. - Extremities General upper extremity: Normal inspection, Nontender, Normal color, Normal ROM , Normal temperature General lower extremity: Normal inspection, Nontender, Normal color, Normal ROM , Normal temperature, Normal weight bearing. No: Nessa's sign - Neurological Neuro grossly intact: Yes Cognition: Normal Orientation: AAOx4 Anitha Coma Scale Eye Opening: Spontaneous [place] Coma Scale Verbal: Oriented [place] Coma Scale Motor: Obeys Commands [place] Coma Scale Total: 15 Speech: Normal Motor strength normal: LUE, RUE, LLE, RLE Sensory: Normal - Psychological Associated symptoms: Normal affect, Normal mood - Skin Skin Temperature: Warm Skin Moisture: Dry Skin Color: Normal Course - Re-evaluation Re-evalutation: 06/23/17 01:19 Patient is a chronic neck pain patient with a history of sciatica. Patient was treated with one hydrocodone in the emergency room and explained to her that we would do not treat chronic pain with narcotics but with anti-inflammatories. Patient was given instruction on use of anti-inflammatories and back exercises. Patient was discharged home to follow-up with her primary doctor. - Vital Signs Vital signs: Temp Pulse Resp BP Pulse Ox 98.2 F 82 15 100/61 97 06/22/17 16:43 06/22/17 16:43 06/22/17 16:43 06/22/17 16:43 06/22/17 16:43 Discharge - Discharge Clinical Impression: Chronic back pain Qualifiers: Back pain location: low back pain Back pain laterality: bilateral Sciatica presence: with sciatica Sciatica laterality: bilateral sciatica Qualified Code(s ): M54.42 - Lumbago with sciatica, left side; M54.41 - Lumbago with sciatica, right side; M54.41 - Lumbago with sciatica, right side; G89.29 - Other chronic pain; G89.29 - Other chronic pain Condition: Stable Disposition: HOME, SELF-CARE Additional Instructions: Chronic Back Pain Chronic back pain (pain persisting longer than three months) is a common problem. A medical evaluation can look for herniated disc, arthritis, osteoporosis, tumors, and infections. But at least half the time, there's no obvious treatable cause. Anxiety and depression tend to worsen back pain. Ibuprofen or other anti-inflammatory medicine can help. A heating pad, used for 15-20 minutes at a time, can ease pain. For this type of back pain, narcotic medicines should be avoided. Muscle relaxers are rarely helpful unless you're having spasms. Activity is important. Find an aerobic exercise program that your back can tolerate. Too much rest makes back pain worse. Specific back exercises are usually prescribed to strengthen the back and abdominal muscles. Often, a physical therapist can help. Avoid heavy lifting, working while bent over, or standing with both knees straight. Most back pain patients do better with a firm mattress. If new symptoms of a "herniated disc" (radiation of pain, numbness, or tingling down the back of the leg or weakness in the leg) occur, you should be re-examined. Chronic Pain Control Stress, inactivity, and depression make pain more severe regardless of the cause of the pain. Stress and poor physical condition can cause pain such as headaches and backache. Relaxation: Rest in a quiet place with your eyes closed for 20 minutes twice daily. Concentrate on a pleasant image, or simply "feel" your breathing. Clear your mind. Stress management: Deal with your "stressors." Either take action, or eliminate the stressor from your life. Don't let things hang over you. Accept those things you can't change. Nutrition: Eat small, balanced meals -- don't skip, don't overeat. Meals should be high-carbohydrate, low-sugar, low-fat. Exercise: Exercise helps painful conditions and eases stress. Get 30 minutes of moderate exercise, five days a week. Do an activity that does not flare your pain. Precautions: Pain which continues to disrupt daily activities, or which changes in nature, requires a medical evaluation. Pain Clinic referral is available. We do not manage chronic pain in the Emergency Department. We will try to appropriately help you through an acute flare of your chronic painful condition , but for on-going chronic pain that does not improve, you will need to see your private doctor or supervisor paint department. We do not provide repeated medication management of chronic painful conditions. If you wish, we can provide the name of local pain management physicians. Ibuprofen Ibuprofen is an excellent, safe drug for pain control. In addition, it has potent antiinflammatory effects which are beneficial, especially in the treatment of injuries, arthritis, or tendonitis. It's best to take ibuprofen with food. Persons with ulcer disease or allergy to aspirin should notify their physician of this before taking ibuprofen. Take the medication exactly as prescribed. Don't take additional doses unless instructed to do so by your doctor. If you develop wheezing, shortness of breath, hives, faintness, stomach pain, vomiting, or dark black stools, return for re-evaluation at once. Using you Voltaren gel and your Aspercreme but not at the same time Stretching Exercises for the Back The physician has recommended that you begin stretching exercises for your back. These are often used even while the back is painful. However, you should notify the physician if the activities seem to increase your pain. PELVIC TILT: Lie flat on your back with knees bent. Tighten your stomach and buttock muscles so it flattens your lower back against the floor. Hold 10 seconds. Repeat 10 times, twice daily. KNEE RAISE: Lying on the back with knees bent, raise one knee to your chest, then the other. Hold both knees against the chest 10 seconds, then lower one knee at a time. Repeat 10 times, twice daily. PARTIAL TRUNK RAISE: Lie face down, arms at your sides. Keeping your waist on the floor, use your arms raise your chest up. Support yourself on your elbows for 30 seconds. Repeat twice daily, increasing the time to two minutes as you recover. He was given a [place] while in the emergency room. Please follow-up with your primary doctor and your neurologist FOLLOW-UP CARE: If you have been referred to a physician for follow-up care, call the physician s office for an appointment as you were instructed or within the next two days. If you experience worsening or a significant change in your symptoms, notify the physician immediately or return to the Emergency Department at any time for re-evaluation. Forms: Elevated Blood Pressure Referrals: FATIMAH MCNALLY MD [Primary Care Provider] - Follow up as needed
[2017-06-22 16:44] VITALS: BP 100/61
== END 2017-06-22 16:43 | disposition home or self-care (01) ==
LOC: ER 14:11
DX: M54.42 Lumbago with sciatica, left side (principal); M54.41 Lumbago with sciatica, right side; G89.29 Other chronic pain; M25.559 Pain in unspecified hip; F17.210 Nicotine dependence, cigarettes, uncomplicated
CPT/HCPCS: 99283

== ENCOUNTER → 2017-08-28 | Outpatient (CLI) | payer MEDICAID ==
--- NOTE | 2017-08-28 15:43 | RADIOLOGY REPORT (SQ) ---
EXAM DESCRIPTION: SACRUM AND COCCYX COMPLETED DATE/TIME: 08/28/2017 3:30 pm REASON FOR STUDY: SACROCOCCYGEAL DISORDER, COCCYDYNIA M53.3 SACROCOCCYGEAL DISORDERS, NOT ELSEWHERE CLASSIFIED COMPARISON: Bone scan 08/28/2017 Lumbar spine plain films 08/20/2014 MRI lumbar spine 07/17/2017, [facility] NUMBER OF VIEWS: Three views. TECHNIQUE: AP, lateral, and tilt views of the sacrum and coccyx. LIMITATIONS: None. FINDINGS: MINERALIZATION: Normal. BONES: No acute fracture or dislocation. Very mild bilateral SI joint sclerosis. SOFT TISSUES: No soft tissue swelling. There are surgical clips in the pelvis and bilateral inguinal regions. OTHER: No other significant finding. IMPRESSION: No acute fracture. No lytic or blastic lesions. Mild sclerosis of the inferior right a nd left SI joints TECHNICAL DOCUMENTATION: JOB ID: [id number] [employer]- All Rights Reserved
--- NOTE | 2017-08-28 15:51 | RADIOLOGY REPORT (SQ) ---
EXAM DESCRIPTION: NM 3 PHASE BONE SCAN COMPLETED DATE/TIME: 08/28/2017 3:04 pm REASON FOR STUDY: SACROCOCCYGEAL DISORDERS, NEC (M53.3) M53.3 SACROCOCCYGEAL DISORDERS, NOT ELSEWHE RE CLASSIFIED COMPARISON: MRI lumbar spine 07/17/2017, [facility] Sacrum and coccyx plain films 08/28/2017 RADIONUCLIDE AND DOSE: 21.8 millicuries Tc99m MDP. The route of agent administration: Intravenous. ADDITIONAL DRUGS AND DOSES: None. TECHNIQUE: Following injection of the radiopharmaceutical, serial blood flow images acquired. Equil ibrium blood pool images then acquired. Routine delayed images at 3 hours acquired of the areas of c linical concern with additional focused images as needed. AREA OF INTEREST: Sacrococcygeal junction LIMITATIONS: None. FINDINGS: VASCULAR FLOW IMAGES: No asymmetry or focal areas of hyperemia. BLOOD POOL IMAGES: No asymmetry or focal areas of soft-tissue hyper-perfusion. BONES: Normal visualization without areas of photopenia or increased bony uptake of radiopharmaceutic al. OTHER: No other significant finding. IMPRESSION: NORMAL 3 PHASE BONE SCAN of the bony pelvis to include the sacrum and coccyx. COMMENT: Quality measure 147: Current bone scan is compared with any available plain radiographs, p rior bone scans, and CT/MRI. TECHNICAL DOCUMENTATION: JOB ID: [id number] [employer]- All Rights Reserved
== END ==
LOC: RAD 10:26
PROVIDERS: ATTEND Specialist
DX: M53.3 Sacrococcygeal disorders, not elsewhere classified (principal)
CPT/HCPCS: 72220; 78315; A9561; Q9969

== ENCOUNTER → 2017-10-29 | Outpatient (CLI) | payer MEDICAID ==
--- NOTE | 2017-10-30 08:07 | WOMENS IMAGING REPORT ---
EXAM DESCRIPTION: BILAT SCREENING MAMMO W/CAD COMPLETED DATE/TIME: 10/29/2017 8:33 am REASON FOR STUDY: SCREENING MAMMO Z12.31 ENCNTR SCREEN MAMMOGRAM FOR MALIGNANT NEOPLASM OF ANIBAL COMPARISON: 05/11/2014 TECHNIQUE: Standard craniocaudal and mediolateral oblique views of each breast recorded using [place] l acquisition. LIMITATIONS: None. FINDINGS: Findings present which are benign by mammographic criteria. No suspicious masses, calcifi cations or architectural distortion. Pertinent benign findings: Benign left breast calcifications. Read with the assistance of CAD. .[facility] - R2 Cenova Version 1.3 .[facility] - R2 Cenova Version 1.3 .[facility] - R2 Cenova Version 2.4 .[facility] [place] - R2 Cenova Version 2.4 .[facility] - R2 [employer] Version 9.2 Benign mammographic findings may include one or more of the following: Smooth masses, popcorn/rim/co arse calcifications, asymmetries, post-procedure changes, and lesions with long-standing stability. IMPRESSION: BENIGN MAMMOGRAPHIC FINDINGS. BIRADS 2 BREAST DENSITY: b. There are scattered areas of fibroglandular density. BIRAD: 2 BENIGN FINDING(S) RECOMMENDATION: ROUTINE SCREENING Please continue yearly screening in October 2018. Consider bilateral screening tomosynthesis COMMENT: The patient has been notified of the results by letter per MQSA requirements. Additional no tification policies are in place for contacting patient with suspicious or incomplete findings. Quality ID #[id number]: The [employer] recommends an annual screening mammogram for women aged 40 years or over. This facility utilizes a reminder system to ensure that all patients receive reminder letters, and/or direct phone calls for appointments. This includes reminders for routine scr eening mammograms, diagnostic mammograms, or other Breast Imaging Interventions when appropriate. Th is patient will be placed in the appropriate reminder system. The [employer] (ACR) has developed recommendations for screening MRI of the breast s in certain patient populations, to be used in conjunction with mammography. Breast MRI surveillanc e may be appropriate for women with more than 20% lifetime risk of developing breast cancer as deter mined by genetic testing, significant family history of the disease, or history of mantle radiation f or Hodgkins Disease. ACR Practice Guidelines 2008. TECHNICAL DOCUMENTATION: FINDING NUMBER: (1) ASSESSMENT: (1) JOB ID: [id number] [employer]- All Rights Reserved Reading location - IP/workstation name: [email or web address]
== END ==
LOC: WI 08:17
PROVIDERS: ATTEND Family Medicine
DX: Z12.31 Encounter for screening mammogram for malignant neoplasm of breast (principal)
CPT/HCPCS: 77067

== ENCOUNTER 2018-05-22 10:47 | Emergency (ER) | payer MEDICAID ==
--- NOTE | 2018-05-22 11:31 | ER Document Report ---
ED Medical Screen (RME) - General Chief Complaint: Leg Pain Stated Complaint: LEFT LEG PAIN Time Seen by Provider: 05/22/18 11:27 Mode of Arrival: Wheelchair Information source: Patient TRAVEL OUTSIDE OF THE [place] IN LAST 30 DAYS: No - HPI Patient complains to provider of: Leg swelling Onset: Other - This a 58-year-old female with a history of a Gustafson pop bypass along the left side previously for claudication that presents for evaluation of worsening swelling in her left lower extremity as well as pain in her left thigh. She called her vascular surgeon who suggested she come to the emergency room as it could represent a clot in the graft. She has had a clot in the graft in the past. She is currently on aspirin as well as Pletal for blood thinning. - Related Data Allergies/Adverse Reactions: amoxicillin [Amoxicillin] Allergy (Severe, Verified 05/22/18 10:48) Anaphylaxis cyclobenzaprine HCl [From Flexeril] Allergy (Severe, Verified 05/22/18 10:48) Anaphylaxis tramadol [Tramadol] Allergy (Severe, Verified 05/22/18 10:48) Anaphylaxis Past Medical History - Social History Chew tobacco use (# tins/day): No Frequency of alcohol use: None Drug Abuse: None - Past Medical History Cardiac Medical History: Reports: Hx DVT, Hx Hypertension, Hx Peripheral Vascular Disease Denies: Hx Coronary Artery Disease, Hx Heart Attack Pulmonary Medical History: Reports: Hx Asthma, Hx Bronchitis - Once yearly, Hx COPD, Hx Pneumonia - Aug 2014 Neurological Medical History: Denies: Hx Cerebrovascular Accident, Hx Seizures Renal/ Medical History: Denies: Hx Peritoneal Dialysis Malignancy Medical History: Reports: Hx Skin Cancer GI Medical History: Reports: Hx Gastroesophageal Reflux Disease, Hx Hiatal Hernia, Hx Ulcer Musculoskeltal Medical History: Reports Hx Arthritis, Reports Hx Musculoskeletal Deformity Psychiatric Medical History: Reports: Hx Depression Past Surgical History: Reports: Hx Section - x3, Hx Vascular Surgery - Left aoro-fem bypass Apr 2015. Denies: Hx Hysterectomy - Immunizations Hx Diphtheria, Pertussis, Tetanus Vaccination: Yes History of Influenza Vaccine for 05/2017 - 10/2017 Season: Yes Physical Exam - Vital signs Vitals: Temp Pulse Resp BP Pulse Ox 98.1 F 95 24 H 133/77 H 92 05/22/18 10:53 05/22/18 10:53 05/22/18 10:53 05/22/18 10:53 05/22/18 10:53 Course - Re-evaluation Re-evalutation: 05/22/18 11:30 I performed a rapid medical screening examination on this patient, believe she will require some further investigation and evaluation will defer further testing or disposition determination to another provider. This patient will undergo initiation with coags, account, and a Doppler ultrasound of the left arterial system for possible clot and graft. - Vital Signs Vital signs: Temp Pulse Resp BP Pulse Ox 98.1 F 95 24 H 133/77 H 92 05/22/18 10:53 05/22/18 10:53 05/22/18 10:53 05/22/18 10:53 05/22/18 10:53 Doctor's Discharge - Discharge Referrals: FATIMAH MCNALLY MD [Primary Care Provider] - Follow up as needed
[2018-05-22 12:01] LABS: ABSOLUTE BASOPHILS # (AUTO) 0.1 10^3/uL (0.0-0.2); ABSOLUTE EOSINOPHILS # (AUTO) 0.3 10^3/uL (0.0-0.6); ABSOLUTE LYMPHOCYTES (AUTO) 2.1 10^3/uL (0.5-4.7); ABSOLUTE MONOCYTES (AUTO) 0.6 10^3/uL (0.1-1.4); ABSOLUTE NEUT (AUTO) 4.5 10^3/uL (1.7-8.2); BASOPHILS % (AUTO) 0.8 % (0-2); EOSINOPHILS % (AUTO) 4.2 % (0-6); HEMATOCRIT 40.2 % (36.0-47.0); HEMOGLOBIN 13.5 g/dL (12.0-15.5); LYMPHOCYTES % (AUTO) 27.3 % (13-45); MEAN CORPUSCULAR HEMOGLOBIN 31.6 pg (27.0-33.4); MEAN CORPUSCULAR HGB CONC 33.6 g/dL (32.0-36.0); MEAN CORPUSCULAR VOLUME 94 fl (80-97); MONOCYTES % (AUTO) 8.1 % (3-13); PLATELET COUNT 466 10^3/uL (150-450); RED BLOOD COUNT 4.28 10^6/uL (3.72-5.28); RED CELL DISTRIBUTION WIDTH 13.9 % (11.5-14.0); SEGMENTED NEUTROPHILS % (AUTO) 59.6 % (42-78); TOTAL CELLS COUNTED % (AUTO) 100 %; WHITE BLOOD COUNT 7.6 10^3/uL (4.0-10.5)
[2018-05-22] MEDS ORDERED: HYDROCODONE/ACETAMINOPHEN 5-325 MG TABLET PO ONE (12:53)
--- NOTE | 2018-05-22 12:57 | ER Document Report ---
ED General - General Chief Complaint: Leg Pain Stated Complaint: LEFT LEG PAIN Time Seen by Provider: 05/22/18 11:27 Mode of Arrival: Wheelchair Notes: Patient is a 58-year-old female with history of peripheral vascular disease that presents to the emergency department for chief complaint of left leg pain and swelling. Patient reports that over the last week or so she has been having pain from the outside of her left hip, down to the ankle, that seems to be worse in the morning when she gets up and improves over the course of the day. She states that she also noticed leg swelling over the past week. She has a history of graft occlusion in the past, her most recent revision of her fem-fem bypass on the left was earlier this year, she has not had any issues since then. She did have some leg swelling earlier in the year, was put on a water pill and that seemed to improve it. She denies any recent travel, denies having any shortness of breath, chest pain. She denies any pain in her toes, denies noting any whitening or paling of her toes. She currently rates the pain as a 4 out of 10, describes as an aching sensation, worse with movement of the leg particularly on the outside of her hip. Past Medical History: Peripheral vascular disease, asthma, hypertension Past Surgical History: Fem-fem bypass with revisions Social History: Former smoker, denies alcohol or drug use. Family History: Reviewed and noncontributory for presenting illness Allergies: Reviewed, see documented allergy list. REVIEW OF SYSTEMS: Unless otherwise stated in this report the patient's positive and negative responses for review of systems for constitutional, eyes, ENT, cardiovascular, respiratory, gastrointestinal, neurological, genitourinary, musculoskeletal, and integumentary systems and related systems to the presenting problem are either as stated in the HPI or were not pertinent or were negative for the symptoms and/or complaints related to the presenting medical problem. PHYSICAL EXAMINATION: Vital signs reviewed, nursing noted reviewed. GENERAL: Well-appearing, well-nourished and in no acute distress. HEAD: Atraumatic, normocephalic. EYES: Eyes appear normal, extraocular movements intact, sclera anicteric, conjunctiva are normal. ENT: nares patent, oropharynx clear without exudates. Moist mucous membranes. NECK: Normal range of motion, supple without lymphadenopathy LUNGS: Breath sounds clear to auscultation bilaterally and equal. No wheezes rales or rhonchi. HEART: Regular rate and rhythm without murmurs ABDOMEN: Soft, nontender, normoactive bowel sounds. No rebound, guarding, or rigidity. No masses appreciated. EXTREMITIES: 2+ pitting edema to the left ankle, none on the right, palpable popliteal pulse on the left, palpable DP pulses on the right, the cap refill is less than 3 seconds in all digits in both the right lower and left lower extremities. There is mild tenderness to palpation over the left greater trochanter, and some pain with range of motion of the left hip. Good range of motion of the knees and ankles bilaterally. The rest of the patient's extremity exam is grossly unremarkable. There is no pallor or cyanosis noted distally in either lower extremity. NEUROLOGICAL: No focal neurological deficits. Moves all extremities spontaneously Motor and sensory grossly intact on exam. PSYCH: Normal mood, normal affect. SKIN: Warm, Dry, normal turgor, no rashes or lesions noted on exposed skin TRAVEL OUTSIDE OF THE [place] IN LAST 30 DAYS: No - Related Data Allergies/Adverse Reactions: amoxicillin [Amoxicillin] Allergy (Severe, Verified 05/22/18 10:48) Anaphylaxis cyclobenzaprine HCl [From Flexeril] Allergy (Severe, Verified 05/22/18 10:48) Anaphylaxis tramadol [Tramadol] Allergy (Severe, Verified 05/22/18 10:48) Anaphylaxis Past Medical History - General Information source: Patient - Social History Smoking Status: Current Every Day Smoker Chew tobacco use (# tins/day): No Frequency of alcohol use: None Drug Abuse: None Family History: Arthritis, CAD, COPD, Hyperlipidemia, Hypertension, Malignancy. denies: CVA, DM, Thyroid Disfunction Patient has suicidal ideation: No Patient has homicidal ideation: No - Past Medical History Cardiac Medical History: Reports: Hx DVT, Hx Hypertension, Hx Peripheral Vascular Disease Denies: Hx Coronary Artery Disease, Hx Heart Attack Pulmonary Medical History: Reports: Hx Asthma, Hx Bronchitis - Once yearly, Hx COPD, Hx Pneumonia - Aug 2014 Neurological Medical History: Denies: Hx Cerebrovascular Accident, Hx Seizures Renal/ Medical History: Denies: Hx Peritoneal Dialysis Malignancy Medical History: Reports: Hx Skin Cancer GI Medical History: Reports: Hx Gastroesophageal Reflux Disease, Hx Hiatal Hernia, Hx Ulcer Musculoskeletal Medical History: Reports Hx Arthritis, Reports Hx Musculoskeletal Deformity Psychiatric Medical History: Reports: Hx Depression Past Surgical History: Reports: Hx Section - x3, Hx Vascular Surgery - Left aoro-fem bypass Apr 2015. Denies: Hx Hysterectomy - Immunizations Hx Diphtheria, Pertussis, Tetanus Vaccination: Yes Hx Pneumococcal Vaccination: 05/13/14 Physical Exam - Vital signs Vitals: Temp Pulse Resp BP Pulse Ox 98.1 F 95 24 H 133/77 H 92 05/22/18 10:53 05/22/18 10:53 05/22/18 10:53 05/22/18 10:53 05/22/18 10:53 Course - Re-evaluation Re-evalutation: Patient seen and examined vital signs reviewed. Laboratory data and imaging were ordered as appropriate for the patient's presenting symptoms and complaint, with consideration of any critical or life threatening conditions that may be associated with their obtained history and exam as noted above. Patient was treated with Eudora 5 mg / 325 mg Results were reviewed when available and demonstrated negative venous duplex imaging of the left lower extremity The patient was re-evaluated and was stable, improved, and ambulatory Evaluation was most consistent with left trochanteric bursitis, I did place a call to the patient's vascular surgeon, did not receive a call back, I asked the patient to call and follow-up tomorrow, I do not feel that this patient has acute occlusion of her femorofemoral bypass, as she has excellent perfusion of the bilateral lower extremities, cap refill is less than 3 seconds in all digits. Sensation is intact as well, no ecchymosis or pallor. No evidence of compartment syndrome. Patient agrees that she will call their office tomorrow, to set up outpatient follow-up, and that if her symptoms worsen, she would return to the emergency department, she is given reasons to return specifically signs and symptoms of acute claudication, and occlusion. Results were discussed with the patient at this point, after careful consideration I feel that that patient can be discharged from the emergency department, the patient was educated treatments and reasons to return to the emergency department based on their presumed diagnosis as noted above, they were advised to followup with a primary care physician in 2-3 days. Patient was agreeable to plan of care. *Note is created using voice recognition software and may contain spelling, syntax or grammatical errors. - Vital Signs Vital signs: Temp Pulse Resp BP Pulse Ox 97.8 F 65 24 H 144/88 H 99 05/22/18 16:33 05/22/18 16:33 05/22/18 10:53 05/22/18 16:33 05/22/18 16:33 - Laboratory Result Diagrams: 05/22/18 11:40 05/22/18 11:40 Laboratory results interpreted by me: 05/22/18 05/22/18 11:40 11:40 Plt Count 466 H Chloride 97 L Carbon Dioxide 33 H Discharge - Discharge Clinical Impression: Peripheral edema Leg pain Qualifiers: Laterality: left Qualified Code(s): M79.605 - Pain in left leg Condition: Stable Disposition: HOME, SELF-CARE Prescriptions: Hydrocodone/Acetaminophen [Eudora 5-325 mg Tablet] 1 tab PO Q8H PRN #10 tablet PRN Reason: LEG PAIN Referrals: FATIMAH MCNALLY MD [Primary Care Provider] - Follow up in 3-5 days KARISHMA SANZ MD [NO LOCAL MD] - Follow up tomorrow
[2018-05-22 13:00] LABS: ANION GAP 10 (5-19); BLOOD UREA NITROGEN 18 mg/dL (7-20); CALCIUM 10.2 mg/dL (8.4-10.2); CARBON DIOXIDE 33 mmol/L (22-30); CHLORIDE 97 mmol/L (98-107); GLUCOSE 103 mg/dL (75-110); POTASSIUM 4.1 mmol/L (3.6-5.0); SODIUM 139.6 mmol/L (137-145)
[2018-05-22 13:42] LABS: PROTHROMBIN TIME 11.5 SEC (11.4-15.4)
[2018-05-22 16:35] VITALS: BP 144/88
--- NOTE | 2018-05-23 13:00 | XCELERA REPORT ---
[address] [address] Lower Extremity Venous Evaluation Procedure: Color flow and duplex imaging of the veins of the left lower extremity as well as the right Common Femoral vein. Right Sided Venous Evaluation The right common femoral vein is fully compressible. Spontaneous and phasic flow is present in the right common femoral vein. Left Sided Venous Evaluation Presence of a Femero Popliteal graft is noted with triphasic signals, before, adjacent to anastomoses, and after graft. Normal vessel filling wall to wall, compression and augmentation as well as Colour flow down to the infrageniculate veins. Interpretation Summary No duplex evidence of DVT or obstruction in the left lower extremity nor in the right Common Femoral vein. Patent left Femero Popliteal graft noted. Name: CINDA HOUSTON Age: 58 yrs Gender: Female : 1960 Patient Status: Emergency Patient Location: ER Study Date: 05/22/2018 01:25 PM Reason For Study: pain left leg / Hx clots Ordering Physician: HOLLY MIGUEL Performed By: Gabriel Hoskins : HOLLY MIGUEL > Charlie Tinoco
== END 2018-05-22 16:42 | disposition home or self-care (01) ==
LOC: ER 10:47
DX: R60.9 Edema, unspecified (principal); M79.605 Pain in left leg; F17.200 Nicotine dependence, unspecified, uncomplicated; I10 Essential (primary) hypertension; Z86.718 Personal history of other venous thrombosis and embolism; Z85.828 Personal history of other malignant neoplasm of skin; Z95.1 Presence of aortocoronary bypass graft
CPT/HCPCS: 36415; 80048; 85025; 85610; 85730; 93971; 99284

== ENCOUNTER → 2018-07-30 | Outpatient (CLI) | payer MEDICAID ==
--- NOTE | 2018-07-30 08:35 | WOMENS IMAGING REPORT ---
EXAM DESCRIPTION: U/S ABDOMEN TOTAL COMPLETED DATE/TIME: 07/30/2018 8:22 am REASON FOR STUDY: R10.811;R10.816;R11.0 R10.816 EPIGASTRIC ABDOMINAL TENDERNESS R11.0 NAUSEA R10.8 11 RIGHT UPPER QUADRANT ABDOMINAL TENDERNESS COMPARISON: None. TECHNIQUE: Dynamic and static grayscale images acquired of the abdomen and recorded on PACS. Additio nal selected color Doppler and spectral images recorded. Note: Study does not meet criteria for complete doppler/duplex scan LIMITATIONS: None. FINDINGS: PANCREAS: The head of the pancreas is of normal echogenicity. The body and tail are obsc ured by overlying bowel gas. LIVER: The liver measures 12.9 cm in length, normal size. No masses. Echotexture normal. LIVER VASCULATURE: Normal directional flow of the main portal vein and hepatic veins. GALLBLADDER: No stones. The gallbladder wall measures 2.3 mm, normal wall thickness. No pericholecys tic fluid. ULTRASOUND-DETECTED AGUILAR'S SIGN: Negative. INTRAHEPATIC DUCTS AND COMMON DUCT: CBD measures 3.4 mm in diameter, normal. The intrahepatic ducts normal caliber. No filling defects. INFERIOR VENA CAVA: Normal flow. AORTA: The proximal abdominal aorta is patent. The mid-distal abdominal aorta and the abdominal aor tic bifurcation are obscured by overlying bowel gas. RIGHT KIDNEY: The right kidney measures 11.1 x 4.3 x 5.0 cm, normal size. Normal echogenicity. N o solid or suspicious masses. No hydronephrosis. No calcifications. LEFT KIDNEY: The left kidney measures 11.2 x 5.2 x 5.4 cm, normal size. Normal echogenicity. No solid or suspicious masses. No hydronephrosis. No calcifications. SPLEEN: The spleen measures 7.5 cm in length, normal size. No solid masses. PERITONEAL AND PLEURAL SPACES: No ascites or effusions. OTHER: No other significant finding. IMPRESSION: 1. Suboptimal visualization of the pancreas and abdominal aorta due to overlying bowel gas. 2. Examination is otherwise unremarkable sonographically. TECHNICAL DOCUMENTATION: JOB ID: [id number]- All Rights Reserved Reading location - IP/workstation name: [email or web address]
== END ==
LOC: WI 07:54
PROVIDERS: ATTEND Internal Medicine Gastroenterology
DX: R10.816 Epigastric abdominal tenderness (principal); R11.0 Nausea; R10.811 Right upper quadrant abdominal tenderness
CPT/HCPCS: 76700

== ENCOUNTER → 2018-08-12 | Outpatient (CLI) | payer MEDICAID ==
--- NOTE | 2018-08-12 14:53 | RADIOLOGY REPORT (SQ) ---
EXAM DESCRIPTION: CT ABD/PELVIS WITH IV ORAL COMPLETED DATE/TIME: 08/12/2018 1:36 pm REASON FOR STUDY: R10.816 EPIGASTRIC ABDOMINAL TENDERNESS R10.12 LEFT UPPER QUADRANT PAIN R10 K57.30 DVRTCLOS OF LG INT W/O PERFORATION OR ABSCESS W/O BLE R10.12 LEFT UPPER QUADRANT PAIN R10.816 EPI GASTRIC ABDOMINAL TENDERNESS COMPARISON: 05/14/2013 TECHNIQUE: CT scan of the abdomen and pelvis performed using helical scanning technique with dynamic intravenous contrast injection. Oral contrast. Images reviewed with lung, soft tissue, and bone win dows. Reconstructed coronal and sagittal MPR images reviewed. Delayed images for evaluation of the ur inary system also acquired. All images stored on PACS. All CT scanners at this facility use dose modulation, iterative reconstruction, and/or weight based d osing when appropriate to reduce radiation dose to as low as reasonably achievable (ALARA). [facility]: Dose Right [facility]: CareDose [facility]: Dose Right [facility]: Teradose 4D [facility]: [employer] CONTRAST TYPE AND DOSE: contrast/concentration: Isovue 350.00 mg/ml; Total Contrast Delivered: 83.0 ml; Total Saline Delivered: 69.0 ml RENAL FUNCTION: Creatinine 1 RADIATION DOSE: CT Rad equipment meets quality standard of care and radiation dose reduction techniq ues were employed. CTDIvol: 8.4 - 9.9 mGy. DLP: 828 mGy-cm.. LIMITATIONS: None. FINDINGS: LOWER CHEST: No significant findings. No nodules or infiltrates. LIVER: Normal size. No masses. No dilated ducts. SPLEEN: Normal size. No focal lesions. PANCREAS: No masses. No significant calcifications. No adjacent inflammation or peripancreatic fluid collections. Pancreatic duct not dilated. GALLBLADDER: No identified stones by CT criteria. No inflammatory changes to suggest cholecystitis. ADRENAL GLANDS: No significant masses or asymmetry. RIGHT KIDNEY AND URETER: No solid masses. No significant calcifications. No hydronephrosis or hyd roureter. LEFT KIDNEY AND URETER: No solid masses. No significant calcifications. No hydronephrosis or hydr oureter. AORTA AND VESSELS: No aneurysm. No dissection. Renal arteries, SMA, celiac without stenosis. RETROPERITONEUM: No retroperitoneal adenopathy, hemorrhage or masses. BOWEL AND PERITONEAL CAVITY: Sigmoid diverticulosis. No inflammatory changes. APPENDIX: Normal. PELVIS: No mass. No free fluid. Normal bladder. ABDOMINAL WALL: No masses. No hernias. BONES: No significant or acute findings. OTHER: No other significant finding. IMPRESSION: Mild diverticulosis coli. No acute findings in the abdomen or pelvis. TECHNICAL DOCUMENTATION: JOB ID: [id number] Quality ID # [id number]: Final reports with documentation of one or more dose reduction techniques (e.g., Au tomated exposure control, adjustment of the mA and/or kV according to patient size, use of iterative reconstruction technique) 2010 [employer]- All Rights Reserved Reading location - IP/workstation name: [email or web address]
== END ==
LOC: RAD 13:41
PROVIDERS: ATTEND Internal Medicine Gastroenterology
DX: K57.30 Diverticulosis of large intestine without perforation or abscess without bleeding (principal); R10.12 Left upper quadrant pain; R10.816 Epigastric abdominal tenderness
CPT/HCPCS: 74177; 82565

== ENCOUNTER 2018-10-17 07:27 | Emergency (ER) | payer MEDICAID ==
--- NOTE | 2018-10-17 08:07 | ER Document Report ---
ED General - General Chief Complaint: Rib Pain Stated Complaint: SIDE PAIN Time Seen by Provider: 10/17/18 08:07 Primary Care Provider: ANGELO CARRIZALES MD [ACTIVE STAFF] - Follow up as needed FATIMAH MCNALLY MD [Primary Care Provider] - Follow up tomorrow TRAVEL OUTSIDE OF THE [place] IN LAST 30 DAYS: No - HPI Context: 58-year-old female presents to ED with complaints of having coughing for the last week, started to hurt on the left side for the last few days, patient states she does have a history of asthma. States pain is 6 out of 10, aching, only occurs when she coughs or sneezes. Has been taking Tylenol and ibuprofen with some relief however she is not supposed to be taking ibuprofen due to history of peptic ulcers. Denies any trauma to left chest. Patient does smoke a pack a day for the last 20 years. Denies fevers, chills, chest pain,palpitations, shortness of breath, dyspnea, nausea, vomiting, diarrhea, abdominal pain, hematuria,blurred vision, double vision, loss of vision, speech changes, LH, dizziness, syncope, headaches, wheezing, ST, URI, neck pain, weakness, bowel or bladder dysfunction, saddle anesthesia, numbness or tingling in bilateral upper or lower extremities equally, muscle paralysis, weakness in bilateral upper or lower extremities equally or rash. - Related Data Allergies/Adverse Reactions: amoxicillin [Amoxicillin] Allergy (Severe, Verified 10/17/18 07:30) Anaphylaxis cyclobenzaprine HCl [From Flexeril] Allergy (Severe, Verified 10/17/18 07:30) Anaphylaxis tramadol [Tramadol] Allergy (Severe, Verified 10/17/18 07:30) Anaphylaxis Past Medical History - General Information source: Patient - Social History Smoking Status: Current Every Day Smoker Chew tobacco use (# tins/day): No Frequency of alcohol use: None Drug Abuse: None Family History: Arthritis, CAD, COPD, Hyperlipidemia, Hypertension, Malignancy. denies: CVA, DM, Thyroid Disfunction Patient has suicidal ideation: No Patient has homicidal ideation: No - Past Medical History Cardiac Medical History: Reports: Hx DVT, Hx Hypertension, Hx Peripheral Vascular Disease Denies: Hx Coronary Artery Disease, Hx Heart Attack Pulmonary Medical History: Reports: Hx Asthma, Hx Bronchitis - Once yearly, Hx COPD, Hx Pneumonia - Aug 2014 Neurological Medical History: Denies: Hx Cerebrovascular Accident, Hx Seizures Renal/ Medical History: Denies: Hx Peritoneal Dialysis Malignancy Medical History: Reports: Hx Skin Cancer GI Medical History: Reports: Hx Gastroesophageal Reflux Disease, Hx Hiatal Herni a, Hx Ulcer Musculoskeletal Medical History: Reports Hx Arthritis, Reports Hx Musculoskeletal Deformity Psychiatric Medical History: Reports: Hx Depression Past Surgical History: Reports: Hx Section - x3, Hx Vascular Surgery - Left aoro-fem bypass Apr 2015. Denies: Hx Hysterectomy - Immunizations Hx Diphtheria, Pertussis, Tetanus Vaccination: Yes Hx Pneumococcal Vaccination: 05/13/14 Review of Systems - Review of Systems Cardiovascular: See HPI Musculoskeletal: See HPI Physical Exam - Vital signs Vitals: Temp Pulse Resp BP Pulse Ox 97.5 F 71 15 175/85 H 99 10/17/18 07:35 10/17/18 07:35 10/17/18 07:35 10/17/18 07:35 10/17/18 07:35 - Notes Notes: PHYSICAL EXAMINATION: GENERAL: Well-appearing, well-nourished and in no acute distress. HEAD: Atraumatic, normocephalic. EYES: Pupils equal round and reactive to light, extraocular movements intact, conjunctiva are normal. ENT: Nares patent, oropharynx clear without exudates. Moist mucous membranes. NECK: Normal range of motion, supple without lymphadenopathy LUNGS: Breath sounds clear to auscultation bilaterally and equal. No wheezes rales or rhonchi. Reproducible left-sided your cough still rib tenderness #9 a #10 on palpation, no step-off noted, no ecchymosis, erythema, induration noted. HEART: Regular rate and rhythm without murmurs ABDOMEN: Soft, nontender, nondistended abdomen. No guarding, no rebound. No masses appreciated. Female : deferred Musculoskeletal: Normal range of motion, no pitting or edema. No cyanosis. NEUROLOGICAL: Cranial nerves grossly intact. Normal speech, normal gait. Normal sensory, motor exams PSYCH: Normal mood, normal affect. SKIN: Warm, Dry, normal turgor, no rashes or lesions noted. No pedal edema bilaterally, distal pulses +2 bilaterally and equally Course - Re-evaluation Re-evalutation: 10/17/18 08:49 Afebrile, blood pressure rechecked manually, blood pressure reduced to 148/90, temperature, pulse and oxygenation all within normal limits patient is not in any distress. Patient does have a history of hypertension, with a recheck of manual blood pressure which blood pressure reduced down to 140 over 90s. Tenderness to left rib in which patient was complaining of pain on palpation during clinical exam, which is the same pain that brought her to the emergency room for evaluation. Chest x-ray negative for acute findings such as pneumonia, pneumothorax, rib fracture was not seen and patient did not have any trauma to left lower side, no vascular congestion. Discussed with patient this is likely related to costochondritis due to recently having cough with history of asthma as well as being a smoker. I have reevaluated this patient multiple times and no significant life threatening changes, no signs of toxicity, sepsis or peritonitis are noted. The patient and I have discussed the diagnosis and risks, and we agree with discharging home and close follow-up. We also discussed returning to the Emergency Department immediately if new or worsening symptoms occur with the understanding that symptoms and presentations can change. At this time will discharge with return precautions and follow-up recommendations. Verbal discharge instructions given a the bedside and opportunity for questions given. We have discussed the symptoms which are most concerning (e.g., chest pain, shortness of breath, worsening pain, difficulty breathing, fever) that necessitate immediate return. Medication warnings reviewed. All questions and concerns answered by this provider. Patient is in agreement with this plan and has verbalized understanding of return precautions and the need for primary care follow-up in the next 24-72 hours. Patient verbalized understanding of plan of care and agree with plan of care. - Vital Signs Vital signs: Temp Pulse Resp BP Pulse Ox 97.5 F 71 15 148/90 H 99 10/17/18 07:35 10/17/18 07:35 10/17/18 07:35 10/17/18 08:35 10/17/18 07:35 Discharge - Discharge Clinical Impression: Costochondritis, acute, Cough Condition: Stable Disposition: HOME, SELF-CARE Instructions: Costochondritis ([facility]), Cough Suppressant & Expectorant Medications Additional Instructions: Your chest wall pain is due to bruising of your ribs. This pain can last for up to 6 weeks. It is very important that you continue to take purposeful deep breaths. For your pain: Continue to take ibuprofen 600 mg every 6 hours or Tylenol 1000 mg every 6 hours. use voldyne as directed. do not drive operated vehicle, drink alcohol, or operate heavy machinery while taking [place] as it can cause impairment of cognitive functioning sedation. Take Tylenol as needed every 4-6 hours. Splint with counter pressure to the affected area whenever you cough, or sneeze, patient to take 10 deep breaths an hour and cough at least twice an hour to prevent pulmonary issues. Please follow-up with her primary care doctor in the next 2-3 days. Return to the emergency department immediately if you develop worsening shortness of breath, increased pain, begin coughing blood, pass out, or have any other symptoms that are worrisome to you. Return immediately for any new or worsening symptoms. Follow up with primary care provider, call tomorrow to make followup appointment. Forms: Smoking Cessation Education Referrals: ANGELO CARRIZALES MD [ACTIVE STAFF] - Follow up as needed FATIMAH MCNALLY MD [Primary Care Provider] - Follow up tomorrow
[2018-10-17 08:41] VITALS: BP 148/90
[2018-10-17] MEDS ORDERED: HYDROCODONE/ACETAMINOPHEN 5-325 MG (6 TAB/ER DISP) PO PRN (08:52)
--- NOTE | 2018-10-17 09:06 | RADIOLOGY REPORT (SQ) ---
EXAM DESCRIPTION: CHEST 2 VIEWS COMPLETED DATE/TIME: 10/17/2018 7:51 am REASON FOR STUDY: Rib pain with cough COMPARISON: None. EXAM PARAMETERS: NUMBER OF VIEWS: two views TECHNIQUE: Digital Frontal and Lateral radiographic views of the chest acquired. RADIATION DOSE: NA LIMITATIONS: none FINDINGS: LUNGS AND PLEURA: No opacities, masses or pneumothorax. No pleural effusion. MEDIASTINUM AND HILAR STRUCTURES: No masses or contour abnormalities. HEART AND VASCULAR STRUCTURES: Heart normal size. No evidence for failure. BONES: No acute findings. HARDWARE: None in the chest. OTHER: No other significant finding. IMPRESSION: NO ACUTE RADIOGRAPHIC FINDING IN THE CHEST. TECHNICAL DOCUMENTATION: JOB ID: [id number] [employer]- All Rights Reserved Reading location - IP/workstation name: [email or web address]
== END 2018-10-17 09:34 | disposition home or self-care (01) ==
LOC: ER 07:27
DX: M94.0 Chondrocostal junction syndrome [Tietze] (principal); R05 Cough; R07.81 Pleurodynia; F17.200 Nicotine dependence, unspecified, uncomplicated; I10 Essential (primary) hypertension; J44.9 Chronic obstructive pulmonary disease, unspecified
CPT/HCPCS: 71046; 99283

== ENCOUNTER 2019-01-12 10:47 | Emergency (ER) | payer MEDICAID ==
[2019-01-12] MEDS ORDERED: HYDROCODONE/ACETAMINOPHEN 5-325 MG TABLET PO ONE (11:40)
--- NOTE | 2019-01-12 11:42 | ER Document Report ---
ED Medical Screen (RME) - General Chief Complaint: Leg Swelling Stated Complaint: LEG PAIN/SWELLING Time Seen by Provider: 01/12/19 11:39 Primary Care Provider: FATIMAH MCNALLY MD [Primary Care Provider] - Follow up as needed Mode of Arrival: Ambulatory Information source: Patient Notes: Patient presents complaining of left lower extremity pain that started yesterday with swelling. Patient reports nausea fatigue as well as generalized joint pain. Patient also reports headache pain for the past 2 days as well. Patient does report a history of PAD with history of vascular surgery. I have greeted and performed a rapid initial assessment of this patient. A comprehensive ED assessment and evaluation of the patient, analysis of test results and completion of the medical decision making process will be conducted by additional ED providers. TRAVEL OUTSIDE OF THE [place] IN LAST 30 DAYS: No - Related Data Allergies/Adverse Reactions: amoxicillin [Amoxicillin] Allergy (Severe, Verified 10/17/18 07:30) Anaphylaxis cyclobenzaprine HCl [From Flexeril] Allergy (Severe, Verified 10/17/18 07:30) Anaphylaxis tramadol [Tramadol] Allergy (Severe, Verified 10/17/18 07:30) Anaphylaxis Past Medical History - Past Medical History Cardiac Medical History: Reports: Hx DVT, Hx Hypertension, Hx Peripheral Vascular Disease Denies: Hx Coronary Artery Disease, Hx Heart Attack Pulmonary Medical History: Reports: Hx Asthma, Hx Bronchitis - Once yearly, Hx COPD, Hx Pneumonia - Aug 2014 Neurological Medical History: Denies: Hx Cerebrovascular Accident, Hx Seizures Renal/ Medical History: Denies: Hx Peritoneal Dialysis Malignancy Medical History: Reports: Hx Skin Cancer GI Medical History: Reports: Hx Gastroesophageal Reflux Disease, Hx Hiatal Hernia, Hx Ulcer Musculoskeltal Medical History: Reports Hx Arthritis, Reports Hx Musculoskeletal Deformity Psychiatric Medical History: Reports: Hx Depression Past Surgical History: Reports: Hx Section - x3, Hx Vascular Surgery - Left aoro-fem bypass Apr 2015. Denies: Hx Hysterectomy - Immunizations Hx Diphtheria, Pertussis, Tetanus Vaccination: Yes History of Influenza Vaccine for 05/2017 - 10/2017 Season: Yes Physical Exam - Vital signs Vitals: Temp Pulse Resp BP Pulse Ox 97.7 F 77 16 138/80 H 96 01/12/19 11:03 01/12/19 11:03 01/12/19 11:03 01/12/19 11:03 01/12/19 11:03 - Extremities General lower extremity: Tender - Tenderness and swelling to distal third of left lower extremity Course - Vital Signs Vital signs: Temp Pulse Resp BP Pulse Ox 97.7 F 77 16 138/80 H 96 01/12/19 11:03 01/12/19 11:03 01/12/19 11:03 01/12/19 11:03 01/12/19 11:03 Doctor's Discharge - Discharge Referrals: FATIMAH MCNALLY MD [Primary Care Provider] - Follow up as needed
[2019-01-12 13:41] LABS: ABSOLUTE BASOPHILS # (AUTO) 0.1 10^3/uL (0.0-0.2); ABSOLUTE EOSINOPHILS # (AUTO) 0.1 10^3/uL (0.0-0.6); ABSOLUTE LYMPHOCYTES (AUTO) 1.7 10^3/uL (0.5-4.7); ABSOLUTE MONOCYTES (AUTO) 0.7 10^3/uL (0.1-1.4); ABSOLUTE NEUT (AUTO) 3.3 10^3/uL (1.7-8.2); BASOPHILS % (AUTO) 1.2 % (0-2); EOSINOPHILS % (AUTO) 2.2 % (0-6); HEMATOCRIT 38.4 % (36.0-47.0); HEMOGLOBIN 12.9 g/dL (12.0-15.5); LYMPHOCYTES % (AUTO) 28.6 % (13-45); MEAN CORPUSCULAR HEMOGLOBIN 30.7 pg (27.0-33.4); MEAN CORPUSCULAR HGB CONC 33.5 g/dL (32.0-36.0); MEAN CORPUSCULAR VOLUME 92 fl (80-97); MONOCYTES % (AUTO) 11.5 % (3-13); PLATELET COUNT 370 10^3/uL (150-450); RED BLOOD COUNT 4.19 10^6/uL (3.72-5.28); RED CELL DISTRIBUTION WIDTH 14.9 % (11.5-14.0); SEGMENTED NEUTROPHILS % (AUTO) 56.5 % (42-78); TOTAL CELLS COUNTED % (AUTO) 100 %; WHITE BLOOD COUNT 5.8 10^3/uL (4.0-10.5)
[2019-01-12 13:46] LABS: INTERNATIONAL RATION (INR) 0.85; PROTHROMBIN TIME 12.1 SEC (11.4-15.4)
[2019-01-12 13:47] LABS: PARTIAL THROMBOPLASTIN TIME 31.9 SEC (23.5-35.8)
[2019-01-12 14:01] LABS: ALANINE AMINOTRANSFERASE 19 U/L (9-52); ALKALINE PHOSPHATASE 77 U/L (38-126); ANION GAP 10 (5-19); ASPARTATE AMINO TRANSFERASE 22 U/L (14-36); BILIRUBIN,DIRECT 0.3 mg/dL (0.0-0.4); BILIRUBIN,TOTAL 0.3 mg/dL (0.2-1.3); BLOOD UREA NITROGEN 14 mg/dL (7-20); CALCIUM 9.7 mg/dL (8.4-10.2); CARBON DIOXIDE 27 mmol/L (22-30); CHLORIDE 102 mmol/L (98-107); GLUCOSE 100 mg/dL (75-110); POTASSIUM 4.7 mmol/L (3.6-5.0); SODIUM 139.3 mmol/L (137-145); TOTAL PROTEIN 6.9 g/dL (6.3-8.2)
--- NOTE | 2019-01-12 15:12 | RADIOLOGY REPORT (SQ) ---
EXAM DESCRIPTION: ARTERIAL LOWER EXTREM UNILAT COMPLETED DATE/TIME: 01/12/2019 2:47 pm REASON FOR STUDY: LLE pain, hx PAD, vascular surgery COMPARISON: None. TECHNIQUE: Dynamic and static jordan scale and color images acquired of the l left ower extremity harpreet lorin. Additional selected spectral images recorded. ABIs not recorded. LIMITATIONS: Mail Technician notes a technically difficult study. FINDINGS: INFLOW ARTERIES: Normal, no obstruction evident. FEMORAL ARTERIES:Multiphasic waveforms. Normal, no velocity elevation to suggest focal stenosis. Norm al color Doppler evaluation. No aneurysm. POPLITEAL ARTERY:Multiphasic waveforms. Normal, no velocity elevation to suggest focal stenosis. Norm al color Doppler evaluation. No aneurysm. PATENT TIBIOPERONEAL TRUNK AND 3 VESSEL RUNOFF: Yes, normal vessels. TBI: Not performed. OTHER: Spot venous imaging reveals no DVT or SVT. IMPRESSION: No focal stenosis suggested in the left lower extremity arterial system. COMMENT: OM NORMAL: Greater than 1.0 MINIMAL DISEASE: 0.9 to 1.0 CLAUDICATION: 0.5 to 0.9 SEVERE ARTERIAL DISEASE: Less than 0.5 [facility] NORMAL: Greater than 1.0 (1.2 If Heavy Calcifications) NORMAL TO MILD ISCHEMIA: 0.8 to 1.0 MODERATE ISCHEMIA: 0.4 to 0.8 SEVERE ISCHEMIA: Less than 0.4 TECHNICAL DOCUMENTATION: JOB ID: [id number] [employer]- All Rights Reserved Reading location - IP/workstation name: [email or web address]
--- NOTE | 2019-01-12 15:18 | ER Document Report ---
ED General - General Chief Complaint: Leg Swelling Stated Complaint: LEG PAIN/SWELLING Time Seen by Provider: 01/12/19 11:39 Primary Care Provider: FATIMAH MCNALLY MD [Primary Care Provider] - Follow up as needed Mode of Arrival: Ambulatory Information source: Patient Notes: This is a 58-year-old female with a history of hypertension, dyslipidemia, COPD, vascular disease (status post left femoropopliteal bypass), history of cellulitis to the left lower extremity, presents to the emergency room with some pain, mild erythema to the left lower extremity for the past 3 days. Patient states that it feels like her cellulitis is coming back. She denies fever. She denies any chest pain. She denies any shortness of breath. TRAVEL OUTSIDE OF THE [place] IN LAST 30 DAYS: No - HPI Onset: Last week Onset/Duration: Gradual Quality of pain: Dull Severity: Mild Pain Level: 1 Associated symptoms: denies: Chest pain, Fever, Shortness of breath Exacerbated by: Denies Relieved by: Denies Similar symptoms previously: Yes Recently seen / treated by doctor: No - Related Data Allergies/Adverse Reactions: amoxicillin [Amoxicillin] Allergy (Severe, Verified 10/17/18 07:30) Anaphylaxis cyclobenzaprine HCl [From Flexeril] Allergy (Severe, Verified 10/17/18 07:30) Anaphylaxis tramadol [Tramadol] Allergy (Severe, Verified 10/17/18 07:30) Anaphylaxis Past Medical History - General Information source: Patient - Social History Smoking Status: Current Every Day Smoker Cigarette use (# per day): Yes - 1 pack/day Chew tobacco use (# tins/day): No Frequency of alcohol use: None Drug Abuse: None Lives with: Family Family History: Arthritis, CAD, COPD, Hyperlipidemia, Hypertension, Malignancy. denies: CVA, DM, Thyroid Disfunction Patient has suicidal ideation: No Patient has homicidal ideation: No - Past Medical History Cardiac Medical History: Reports: Hx DVT, Hx Hypertension, Hx Peripheral Vascular Disease Denies: Hx Coronary Artery Disease, Hx Heart Attack Pulmonary Medical History: Reports: Hx Asthma, Hx Bronchitis - Once yearly, Hx COPD, Hx Pneumonia - Aug 2014 Neurological Medical History: Denies: Hx Cerebrovascular Accident, Hx Seizures Renal/ Medical History: Denies: Hx Peritoneal Dialysis Malignancy Medical History: Reports: Hx Skin Cancer GI Medical History: Reports: Hx Gastroesophageal Reflux Disease, Hx Hiatal Hernia, Hx Ulcer Musculoskeletal Medical History: Reports Hx Arthritis, Reports Hx Musculoskeletal Deformity Psychiatric Medical History: Reports: Hx Depression Past Surgical History: Reports: Hx Section - x3, Hx Vascular Surgery - Left aoro-fem bypass Apr 2015. Denies: Hx Hysterectomy - Immunizations Hx Diphtheria, Pertussis, Tetanus Vaccination: Yes Hx Pneumococcal Vaccination: 05/13/14 Review of Systems - Review of Systems Constitutional: denies: Chills, Fever EENT: No symptoms reported Cardiovascular: No symptoms reported Respiratory: No symptoms reported Gastrointestinal: No symptoms reported Genitourinary: No symptoms reported Female Genitourinary: No symptoms reported Musculoskeletal: See HPI Skin: No symptoms reported Hematologic/Lymphatic: No symptoms reported Neurological/Psychological: No symptoms reported Physical Exam - Vital signs Vitals: Temp Pulse Resp BP Pulse Ox 97.7 F 77 16 138/80 H 96 01/12/19 11:03 01/12/19 11:03 01/12/19 11:03 01/12/19 11:03 01/12/19 11:03 Notes: Physical exam: GENERAL: She is alert and oriented x3, no acute distress HEAD: Atraumatic, normocephalic. EYES: Pupils equal round and reactive to light, extraocular movements intact, sclera anicteric, conjunctiva are normal. ENT: TMs normal, nares patent, oropharynx clear without exudates. Moist mucous membranes. NECK: Normal range of motion, supple without obvious mass or JVD. LUNGS: Breath sounds clear to auscultation bilaterally and equal. No wheezes rales or rhonchi. HEART: Regular rate and rhythm without murmurs, rubs or gallops. ABDOMEN: Soft, normoactive bowel sounds. No tenderness to palpation. No guarding, no rebound. No masses appreciated. EXTREMITIES: Normal range of motion, no pitting or edema. No clubbing or cyanosis. Mild erythema to the left lower extremity anteriorly. She is got an old femoropopliteal bypass scar. There is no significant swelling. There is no evidence of fluctuance or induration suggestive of an abscess. She has good cap refill distally. NEUROLOGICAL: Cranial nerves II through XII grossly intact. Normal speech, moving all extremities. PSYCH: Normal mood, normal affect. SKIN: As mentioned above under extremity Course - Vital Signs Vital signs: Temp Pulse Resp BP Pulse Ox 97.5 F 60 16 134/80 H 98 01/12/19 15:56 01/12/19 15:56 01/12/19 11:03 01/12/19 15:56 01/12/19 15:56 - Laboratory Result Diagrams: 01/12/19 13:00 01/12/19 13:00 Laboratory results interpreted by me: 01/12/19 13:00 RDW 14.9 H - Diagnostic Test Radiology reviewed: Image reviewed, Reports reviewed Discharge - Discharge Clinical Impression: Mild cellulitis of the left lower extrem Condition: Stable Disposition: HOME, SELF-CARE Additional Instructions: As we discussed, the ultrasound of the lower leg look quite good. There is no evidence of blood clots. Your lab tests look normal. Recommendations: I still recommend you try and quit smoking altogether: It does predispose you to COPD, blood clots both in the veins and also in the arteries. I want you to take the antibiotics as prescribed. I want you to follow-up with your primary care doctor this week To the emergency room for worsening pain, worsening swelling, worsening redness. Prescriptions: Clindamycin HCl 300 mg PO Q6HP PRN #28 capsule PRN Reason: Referrals: FATIMAH MCNALLY MD [Primary Care Provider] - Follow up as needed
[2019-01-12 15:58] VITALS: BP 134/80
== END 2019-01-12 15:58 | disposition home or self-care (01) ==
LOC: ER 10:47
DX: L03.116 Cellulitis of left lower limb (principal); I10 Essential (primary) hypertension; F17.210 Nicotine dependence, cigarettes, uncomplicated; J44.9 Chronic obstructive pulmonary disease, unspecified; Z98.62 Peripheral vascular angioplasty status; Z87.892 Personal history of anaphylaxis; Z88.0 Allergy status to penicillin; Z88.8 Allergy status to other drugs, medicaments and biological substances; Z88.5 Allergy status to narcotic agent
CPT/HCPCS: 36415; 80053; 85025; 85610; 85730; 93926; 99284

== ENCOUNTER 2019-06-19 07:44 | Emergency (ER) | payer MEDICAID ==
[2019-06-19] MEDS ORDERED: ACETAMINOPHEN 325 MG TABLET PO ONE (08:24)
[2019-06-19] MEDS ORDERED: TETRACAINE HCL 0.5% OPH SOLN 4 ML OD ONE (08:24)
[2019-06-19] MEDS ORDERED: ERYTHROMYCIN 0.5% OPH OINTMENT 3.5 GM (ER DISP) OD PRN (08:51)
--- NOTE | 2019-06-19 08:58 | ER Document Report ---
HPI - HPI Patient complains to provider of: Right eye irritation Time Seen by Provider: 06/19/19 08:11 Onset: This morning Onset/Duration: Sudden Quality of pain: Achy Pain Level: 5 Context: This 59-year-old female with history of wearing reading glasses no contacts pr esents emergency department with complaints of right eye irritation. She reports feels like something is in it. She reports eye was watery last night but this morning at around 0400 she woke up with increasing irritation. She reports her eyes watery but denies discharge this morning. No recent exposure to pinkeye. She did use Clear Eyes without relief of symptoms. Reports the eye is giving her a headache now. Denies fever vomiting diarrhea. Denies trauma to the eye. Denies past medical history of injury to the eye. Associated Symptoms: Headache Exacerbated by: Denies Relieved by: Denies Similar symptoms previously: No Recently seen / treated by doctor: No - REPRODUCTIVE Reproductive: DENIES: : Past Medical History - General Information source: Patient - Social History Smoking Status: Current Every Day Smoker Chew tobacco use (# tins/day): No Frequency of alcohol use: None Drug Abuse: None Family History: Arthritis, CAD, COPD, Hyperlipidemia, Hypertension, Malignancy. denies: CVA, DM, Thyroid Disfunction Patient has suicidal ideation: No Patient has homicidal ideation: No - Past Medical History Cardiac Medical History: Reports: Hx DVT, Hx Hypertension, Hx Peripheral Vascular Disease Denies: Hx Coronary Artery Disease, Hx Heart Attack Pulmonary Medical History: Reports: Hx Asthma, Hx Bronchitis - Once yearly, Hx COPD, Hx Pneumonia - Aug 2014 Neurological Medical History: Denies: Hx Cerebrovascular Accident, Hx Seizures Renal/ Medical History: Denies: Hx Peritoneal Dialysis Malignancy Medical History: Reports: Hx Skin Cancer GI Medical History: Reports: Hx Gastroesophageal Reflux Disease, Hx Hiatal Hernia, Hx Ulcer Musculoskeletal Medical History: Reports Hx Arthritis, Reports Hx Musculoskeletal Deformity Psychiatric Medical History: Reports: Hx Depression Past Surgical History: Reports: Hx Section - x3, Hx Vascular Surgery - Left aoro-fem bypass Apr 2015. Denies: Hx Hysterectomy - Immunizations Hx Diphtheria, Pertussis, Tetanus Vaccination: Yes Hx Pneumococcal Vaccination: 05/13/14 Vertical Provider Document - CONSTITUTIONAL Agree With Documented VS: Yes Exam Limitations: No Limitations General Appearance: WD/WN, No Apparent Distress - INFECTION CONTROL TRAVEL OUTSIDE OF THE [place] IN LAST 30 DAYS: No - HEENT HEENT: Atraumatic, Conjuctival Injection, Normocephalic, PERRLA - NECK Neck: Supple - RESPIRATORY Respiratory: Breath Sounds Normal, No Respiratory Distress - CARDIOVASCULAR Cardiovascular: Regular Rate - MUSCULOSKELETAL/EXTREMETIES Musculoskeletal/Extremeties: MAEW, FROM - NEURO Level of Consciousness: Awake, Alert, Appropriate Motor/Sensory: No Motor Deficit - DERM Integumentary: Warm, Dry Course - Re-evaluation Re-evalutation: 06/19/19 08:56 59-year-old female presents with right eye irritation. Reports it feels like something is in it. Denies vision issues. Drove herself here. Reports watery eyes but denies discharge. Eye exam done after tetracaine applied with i mmediate relief of symptoms. Hall lamp utilized small abrasion noted to approximately 0900 on the right eye. She was prescribed erythromycin ointment. She reports she is used this before. She was instructed on signs and symptoms of allergic reaction. She was also instructed to follow-up with pipe installer for recheck. She verbalized understanding to all instructions. Dictation of this chart was performed using voice recognition software; therefore, there may be some unintended grammatical errors. - Vital Signs Vital signs: Temp Pulse Resp BP Pulse Ox 97.6 F 81 18 153/93 H 94 06/19/19 07:49 06/19/19 07:49 06/19/19 07:49 06/19/19 07:49 06/19/19 07:49 Procedures - Eye Procedure Right Eye Irrigated w/ Saline (ccs): 10 Alcaine Drops Administered: Yes - Tetracaine Fluorescein applied: Right Antibiotic Oinment/Drps Admin: Right eye Slit lamp used: No Notes: 06/19/19 08:54 Tetracaine applied to right eye. Patient reported immediate relief. Fluorescein stain used abrasion noted. Patient instructed on erythromycin ointment. She verbalized understanding to all procedure. Eyes picture: 1 - Abrasion noted Discharge - Discharge Clinical Impression: Irritation of right eye Conjunctival abrasion Qualifiers: Encounter type: initial encounter Laterality: right Qualified Code(s): S05.01XA - Injury of conjunctiva and corneal abrasion without foreign body, right eye, initial encounter Condition: Stable Disposition: HOME, SELF-CARE Instructions: Antibiotic Therapy ([facility]) Additional Instructions: *You have been evaluated for eye irritation, conjunctivae abrasion *Use eye drops as [id number] ribbon to bottom right eyelid 3 times a day for 4 days *Good hand washing *Follow up with an pipe installer within 1 week for recheck Quit smoking *Return to ED for worsening condition, changes, needs, pain swelling redness to the eye Monitor your blood pressure. Your blood pressure was elevated today. This may be because you were anxious, in pain or because you need medication. It is important to follow up with your primary care provider for full evaluation. Forms: Elevated Blood Pressure, Smoking Cessation Education Referrals: FATIMAH MCNALLY MD [Primary Care Provider] - Follow up as needed
[2019-06-19 09:14] VITALS: BP 122/74
== END 2019-06-19 09:10 | disposition home or self-care (01) ==
LOC: ER 07:44
DX: S05.01XA Injury of conjunctiva and corneal abrasion without foreign body, right eye, initial encounter (principal); X58.XXXA Exposure to other specified factors, initial encounter; R51 Headache; I10 Essential (primary) hypertension; J44.9 Chronic obstructive pulmonary disease, unspecified; F17.200 Nicotine dependence, unspecified, uncomplicated
CPT/HCPCS: 99283; J3490 ×2

== ENCOUNTER 2019-07-02 10:11 | Emergency (ER) | payer MEDICAID ==
--- NOTE | 2019-07-02 10:25 | ER Document Report ---
ED Medical Screen (RME) - General Chief Complaint: Leg Swelling Stated Complaint: LEG SWELLING Time Seen by Provider: 07/02/19 10:17 Primary Care Provider: FATIMAH MCNALLY MD [Primary Care Provider] - Follow up as needed Notes: Patient is a 59-year-old female with a history of peripheral vascular disease and a femoral bypass in 2014 who presents to the emergency department with a chief complaint of left lower leg swelling and pain. Patient states that her symptoms started about 4 days ago. She states that her pain has gotten progressively worse. She is able to walk, but states that the pain is worse. She also has history of cellulitis to the area. Patient also has hypertension and hyperlipidemia. Exam: 1+ dorsalis pedis pulse. Capillary refill less than 3 seconds. 2+ pitting edema to left lower extremity. No edema to right lower extremity. I have greeted and performed a rapid initial assessment of this patient. A comprehensive ED assessment and evaluation of the patient, analysis of test re sults and completion of medical decision making process will be conducted by an additional ED providers. TRAVEL OUTSIDE OF THE [place] IN LAST 30 DAYS: No - Related Data Allergies/Adverse Reactions: amoxicillin [Amoxicillin] Allergy (Severe, Verified 07/02/19 10:16) Anaphylaxis cyclobenzaprine HCl [From Flexeril] Allergy (Severe, Verified 07/02/19 10:16) Anaphylaxis tramadol [Tramadol] Allergy (Severe, Verified 07/02/19 10:16) Anaphylaxis Past Medical History - Past Medical History Cardiac Medical History: Reports: Hx DVT, Hx Hypertension, Hx Peripheral Vascular Disease Denies: Hx Coronary Artery Disease, Hx Heart Attack Pulmonary Medical History: Reports: Hx Asthma, Hx Bronchitis - Once yearly, Hx COPD, Hx Pneumonia - Aug 2014 Neurological Medical History: Denies: Hx Cerebrovascular Accident, Hx Seizures Renal/ Medical History: Denies: Hx Peritoneal Dialysis Malignancy Medical History: Reports: Hx Skin Cancer GI Medical History: Reports: Hx Gastroesophageal Reflux Disease, Hx Hiatal Hernia, Hx Ulcer Musculoskeltal Medical History: Reports Hx Arthritis, Reports Hx Musculoskeletal Deformity Psychiatric Medical History: Reports: Hx Depression Past Surgical History: Reports: Hx Section - x3, Hx Vascular Surgery - Left aoro-fem bypass Apr 2015. Denies: Hx Hysterectomy - Immunizations Hx Diphtheria, Pertussis, Tetanus Vaccination: Yes Physical Exam - Vital signs Vitals: Temp Pulse Resp BP Pulse Ox 97.7 F 80 18 128/79 H 98 07/02/19 10:15 07/02/19 10:15 07/02/19 10:15 07/02/19 10:15 07/02/19 10:15 Course - Vital Signs Vital signs: Temp Pulse Resp BP Pulse Ox 97.7 F 80 18 128/79 H 98 07/02/19 10:15 07/02/19 10:15 07/02/19 10:15 07/02/19 10:15 07/02/19 10:15 Doctor's Discharge - Discharge Referrals: FATIMAH MCNALLY MD [Primary Care Provider] - Follow up as needed
[2019-07-02] MEDS ORDERED: HYDROCODONE/ACETAMINOPHEN 5-325 MG TABLET PO ONE (10:44)
--- NOTE | 2019-07-02 10:48 | ER Document Report ---
ED Extremity Problem, Lower - General Chief Complaint: Leg Swelling Stated Complaint: LEG SWELLING Time Seen by Provider: 07/02/19 10:17 Primary Care Provider: FATIMAH MCNALLY MD [Primary Care Provider] - Follow up in 3-5 days (Follow up as scheduled on Sunday) Notes: 59-year-old female with past medical history of PVD and fem pop bypass presents with left lower extremity swelling/pain for 4 days. Patient had femoropopliteal bypass in the left leg in 2014 and states she had a blood clot in the graft that required surgery. Patient denies any chest pain or worsening dyspnea. Patient denies any recent injury or fever. Patient states she has been taking Tylenol for pain without any relief. TRAVEL OUTSIDE OF THE [place] IN LAST 30 DAYS: No - Related Data Allergies/Adverse Reactions: amoxicillin [Amoxicillin] Allergy (Severe, Verified 07/02/19 10:16) Anaphylaxis cyclobenzaprine HCl [From Flexeril] Allergy (Severe, Verified 07/02/19 10:16) Anaphylaxis tramadol [Tramadol] Allergy (Severe, Verified 07/02/19 10:16) Anaphylaxis Past Medical History - Social History Smoking Status: Current Every Day Smoker Frequency of alcohol use: None Drug Abuse: None Family History: Arthritis, CAD, COPD, Hyperlipidemia, Hypertension, Malignancy. denies: CVA, DM, Thyroid Disfunction Patient has suicidal ideation: No Patient has homicidal ideation: No - Past Medical History Cardiac Medical History: Reports: Hx DVT, Hx Hypertension, Hx Peripheral Vascular Disease Denies: Hx Coronary Artery Disease, Hx Heart Attack Pulmonary Medical History: Reports: Hx Asthma, Hx Bronchitis - Once yearly, Hx COPD, Hx Pneumonia - Aug 2014 Neurological Medical History: Denies: Hx Cerebrovascular Accident, Hx Seizures Renal/ Medical History: Denies: Hx Peritoneal Dialysis Malignancy Medical History: Reports: Hx Skin Cancer GI Medical History: Reports: Hx Gastroesophageal Reflux Disease, Hx Hiatal Hernia, Hx Ulcer Musculoskeletal Medical History: Reports Hx Arthritis, Reports Hx Musculoskeletal Deformity Psychiatric Medical History: Reports: Hx Depression Past Surgical History: Reports: Hx Section - x3, Hx Vascular Surgery - Left aoro-fem bypass Apr 2015. Denies: Hx Hysterectomy - Immunizations Hx Diphtheria, Pertussis, Tetanus Vaccination: Yes Hx Pneumococcal Vaccination: 05/13/14 Review of Systems - Review of Systems Notes: Constitutional: Negative for fever. HENT: Negative for sore throat. Eyes: Negative for visual changes. Cardiovascular: Negative for chest pain. Respiratory: Negative for shortness of breath. Gastrointestinal: Negative for abdominal pain, vomiting or diarrhea. Genitourinary: Negative for dysuria. Musculoskeletal: Positive for left lower extremity swelling and pain. Negative for back pain. Skin: Negative for rash. Neurological: Negative for headaches, weakness or numbness. 10 point ROS negative except as marked above and in HPI. Physical Exam - Vital signs Vitals: Temp Pulse Resp BP Pulse Ox 97.7 F 80 18 128/79 H 98 07/02/19 10:15 07/02/19 10:15 07/02/19 10:15 07/02/19 10:15 07/02/19 10:15 - Notes Notes: GENERAL: Well-appearing, well-nourished and in no acute distress. HEAD: Atraumatic, normocephalic. EYES: Extraocular movements intact, sclera anicteric, conjunctiva are normal. NECK: Normal range of motion, supple without lymphadenopathy or JVD. LUNGS: Breath sounds clear to auscultation bilaterally and equal. No wheezes rales or rhonchi. HEART: Regular rate and rhythm without murmurs, rubs or gallops. ABDOMEN: Soft, nontender, normoactive bowel sounds. No guarding, no rebound. No masses appreciated. EXTREMITIES: Left lower extremity: mild swelling noted, mildly tender to palpation, distal pedal pulses 1+, cap refill < 2 sec, no erythema, no calor. Normal range of motion. No clubbing or cyanosis. NEUROLOGICAL: Cranial nerves II through XII grossly intact. Normal speech, normal gait. PSYCH: Normal mood, normal affect. SKIN: Warm, Dry, normal turgor, no rashes or lesions noted. Course - Re-evaluation Re-evalutation: 07/02/19 59-year-old female presents with left lower leg swelling and pain. Patient has a history of PVD and femoropopliteal bypass in that leg. History of blood clot and graft after surgery. Patient denies any chest pain or shortness of breath. Vitals are stable without any hypoxia, tachycardia, tachypnea. Patient nontoxic, well-appearing. Left lower leg mildly swollen, mildly tender. No signs of cellulitis. Distal neurovascular intact. Ultrasound venous and arterial ordered in triage. 07/02/19 14:59 Pt is frustrated at this time with wait. Radiology dept contacted multiple times about US doppler and will read it soon. Pt states she is leaving and has follow up with PCP on Sunday. Pt's phone number taken and told will call if anything abnormal. Pt agrees with plan of care. 07/02/19 15:00 US results back. Discussed this with pt. Pt encouraged to keep appointment with PCP on Sunday (2 days). Strict return precautions discussed/given. All questions/concerns addressed prior to discharge. - Vital Signs Vital signs: Temp Pulse Resp BP Pulse Ox 97.7 F 68 18 107/80 95 07/02/19 10:15 07/02/19 15:16 07/02/19 10:15 07/02/19 15:16 07/02/19 15:16 Discharge - Discharge Clinical Impression: Left leg swelling Condition: Stable Disposition: HOME, SELF-CARE Additional Instructions: We will call you if your ultrasound shows any abnormalities. Please keep your appointment with your PCP on Sunday as scheduled. Return to ER for any worsening symptoms, including worsening swelling, shortness of breath, redness, fever, or any other concerning symptoms. Referrals: FATIMAH MCNALLY MD [Primary Care Provider] - Follow up in 3-5 days (Follow up as scheduled on Sunday)
--- NOTE | 2019-07-02 14:59 | RADIOLOGY REPORT (SQ) ---
EXAM DESCRIPTION: VENOUS UNILATERAL LOWER COMPLETED DATE/TIME: 07/02/2019 2:36 pm REASON FOR STUDY: LLE pain/swelling COMPARISON: None. TECHNIQUE: Dynamic and static jordan scale and color images acquired of the left leg venous system. Se lected spectral images acquired with additional compression and augmentation maneuvers. The contralat eral common femoral vein and saphenofemoral junction were also imaged. Images stored on PACS. LIMITATIONS: None. FINDINGS: COMMON FEMORAL: Normal phasicity, compression and augmentation. No visualized echogenic ma terial on jordan scale. No defects on color images. FEMORAL: Normal compression and augmentation. No visualized echogenic material on jordan scale. No defe cts on color images. POPLITEAL: Normal compression, augmentation. No visualized echogenic material on jordan scale. No defec ts on color images. CALF VESSELS: Normal compression, augmentation. No visualized echogenic material on jordan scale. No de fects on color images. GSV and SSV: Normal compression, augmentation. No visualized echogenic material on jordan scale. No def ects on color images. ANY DEEP VENOUS INSUFFICIENCY: No. ANY EVIDENCE OF POPLITEAL CYST: No. OTHER: No other finding. CONTRALATERAL COMMON FEMORAL VEIN AND SAPHENOFEMORAL JUNCTION: Normal phasicity, compression and augmentation. No visualized echogenic material on jordan scale. No de fects on color images. IMPRESSION: NO EVIDENCE OF DVT OR SVT IN THE LEFT LEG. TECHNICAL DOCUMENTATION: JOB ID: [id number] [employer]- All Rights Reserved Reading location - IP/workstation name: [email or web address]
[2019-07-02] MEDS ORDERED: HYDROCODONE/ACETAMINOPHEN 5-325 MG (6 TAB/ER DISP) PO PRN (15:01)
[2019-07-02 15:21] VITALS: BP 107/80
== END 2019-07-02 15:26 | disposition home or self-care (01) ==
LOC: ER 10:11
DX: M79.89 Other specified soft tissue disorders (principal); M79.605 Pain in left leg; Z95.820 Peripheral vascular angioplasty status with implants and grafts; Z86.718 Personal history of other venous thrombosis and embolism; I10 Essential (primary) hypertension; J44.9 Chronic obstructive pulmonary disease, unspecified; F17.200 Nicotine dependence, unspecified, uncomplicated; Z87.892 Personal history of anaphylaxis; Z88.0 Allergy status to penicillin; Z88.5 Allergy status to narcotic agent; Z88.8 Allergy status to other drugs, medicaments and biological substances
CPT/HCPCS: 93971; 99283

== ENCOUNTER 2019-07-25 16:04 | Emergency (ER) | payer MEDICAID ==
[2019-07-25] MEDS ORDERED: ASPIRIN 81 MG TABLET, CHEWABLE PO ONE (17:49)
--- NOTE | 2019-07-25 17:50 | ER Document Report ---
ED Medical Screen (RME) - General Chief Complaint: Chest Pain Stated Complaint: CHEST PAIN/NAUSEA Time Seen by Provider: 07/25/19 17:47 Primary Care Provider: FATIMAH MCNALLY MD [Primary Care Provider] - Follow up as needed Information source: Patient Notes: Patient presents complaining of left-sided chest pain off and on since yesterday. Patient is presently pain-free. Patient does report nausea vomiting x2 episodes. Patient denies any cough or cold symptoms. I have greeted and performed a rapid initial assessment of this patient. A comprehensive ED assessment and evaluation of the patient, analysis of test results and completion of the medical decision making process will be conducted by additional ED providers. TRAVEL OUTSIDE OF THE [place] IN LAST 30 DAYS: No - Related Data Allergies/Adverse Reactions: amoxicillin [Amoxicillin] Allergy (Severe, Verified 07/25/19 17:45) Anaphylaxis cyclobenzaprine HCl [From Flexeril] Allergy (Severe, Verified 07/25/19 17:45) Anaphylaxis tramadol [Tramadol] Allergy (Severe, Verified 07/25/19 17:45) Anaphylaxis Home Medications: Losartan/HCTZ. lipitor. trazodone. Prevacid. pletal. Proair. Symbicort Past Medical History - Social History Chew tobacco use (# tins/day): No Frequency of alcohol use: None Drug Abuse: None - Past Medical History Cardiac Medical History: Reports: Hx DVT, Hx Hypertension, Hx Peripheral Vascular Disease Denies: Hx Coronary Artery Disease, Hx Heart Attack Pulmonary Medical History: Reports: Hx Asthma, Hx Bronchitis - Once yearly, Hx COPD, Hx Pneumonia - Aug 2014 Neurological Medical History: Denies: Hx Cerebrovascular Accident, Hx Seizures Renal/ Medical History: Denies: Hx Peritoneal Dialysis Malignancy Medical History: Reports: Hx Skin Cancer GI Medical History: Reports: Hx Gastroesophageal Reflux Disease, Hx Hiatal Hernia, Hx Ulcer Musculoskeltal Medical History: Reports Hx Arthritis, Reports Hx Musculoskeletal Deformity Psychiatric Medical History: Reports: Hx Depression Past Surgical History: Reports: Hx Section - x3, Hx Vascular Surgery - Left aoro-fem bypass Apr 2015. Denies: Hx Hysterectomy - Immunizations Hx Diphtheria, Pertussis, Tetanus Vaccination: Yes Physical Exam - Vital signs Vitals: Temp Pulse Resp BP Pulse Ox 98.8 F 72 17 124/81 96 07/25/19 16:41 07/25/19 16:41 07/25/19 16:41 07/25/19 16:41 07/25/19 16:41 - Cardiovascular Rhythm: Regular Heart sounds: S1 appreciated, S2 appreciated Murmur: No Course - Vital Signs Vital signs: Temp Pulse Resp BP Pulse Ox 98.8 F 72 17 124/81 96 07/25/19 17:45 07/25/19 16:41 07/25/19 17:45 07/25/19 16:41 07/25/19 17:45 Doctor's Discharge - Discharge Referrals: FATIMAH MCNALLY MD [Primary Care Provider] - Follow up as needed
[2019-07-25 18:26] LABS: ABSOLUTE BASOPHILS # (AUTO) 0.1 10^3/uL (0.0-0.2); ABSOLUTE EOSINOPHILS # (AUTO) 0.1 10^3/uL (0.0-0.6); ABSOLUTE MONOCYTES (AUTO) 0.7 10^3/uL (0.1-1.4); ABSOLUTE NEUT (AUTO) 4.6 10^3/uL (1.7-8.2); BASOPHILS % (AUTO) 0.8 % (0-2); HEMATOCRIT 39.8 % (36.0-47.0); HEMOGLOBIN 13.5 g/dL (12.0-15.5); LYMPHOCYTES % (AUTO) 26.8 % (13-45); MEAN CORPUSCULAR HEMOGLOBIN 31.4 pg (27.0-33.4); MEAN CORPUSCULAR HGB CONC 33.8 g/dL (32.0-36.0); MEAN CORPUSCULAR VOLUME 93 fl (80-97); MONOCYTES % (AUTO) 9.5 % (3-13); PLATELET COUNT 426 10^3/uL (150-450); RED BLOOD COUNT 4.28 10^6/uL (3.72-5.28); SEGMENTED NEUTROPHILS % (AUTO) 61.9 % (42-78); TOTAL CELLS COUNTED % (AUTO) 100 %; WHITE BLOOD COUNT 7.5 10^3/uL (4.0-10.5)
[2019-07-25 18:32] LABS: ALBUMIN 4.2 g/dL (3.5-5.0); ALKALINE PHOSPHATASE 81 U/L (38-126); ANION GAP 8 (5-19); ASPARTATE AMINO TRANSFERASE 18 U/L (14-36); BILIRUBIN,DIRECT 0.2 mg/dL (0.0-0.4); BILIRUBIN,TOTAL 0.5 mg/dL (0.2-1.3); BLOOD UREA NITROGEN 12 mg/dL (7-20); CALCIUM 9.9 mg/dL (8.4-10.2); CARBON DIOXIDE 29 mmol/L (22-30); CHLORIDE 100 mmol/L (98-107); GLUCOSE 112 mg/dL (75-110); POTASSIUM 3.8 mmol/L (3.6-5.0); TOTAL PROTEIN 7.3 g/dL (6.3-8.2)
--- NOTE | 2019-07-25 18:42 | RADIOLOGY REPORT (SQ) ---
EXAM DESCRIPTION: CHEST 2 VIEWS COMPLETED DATE/TIME: 07/25/2019 6:16 pm REASON FOR STUDY: cp COMPARISON: 10/17/2018 TECHNICAL DOCUMENTATION: JOB ID: [id number] Reading location - IP/workstation name: [email or web address]
[2019-07-25] MEDS ORDERED: ACETAMINOPHEN 325 MG TABLET PO ONE (18:58)
--- NOTE | 2019-07-25 21:33 | EKG REPORT ---
SEVERITY:- NORMAL ECG - SINUS RHYTHM : Confirmed by: Jamil Segal MD 25-Jul-2019 21:32:57
[2019-07-25] MEDS ORDERED: MORPHINE SULFATE 10 MG/ML INJ IV ONE (22:07)
[2019-07-25] MEDS ORDERED: ONDANSETRON 4 MG TAB.RAPDIS PO ONE (22:07)
--- NOTE | 2019-07-25 22:13 | ER Document Report ---
ED Cardiac - General Chief Complaint: Chest Pain Stated Complaint: CHEST PAIN/NAUSEA Time Seen by Provider: 07/25/19 17:47 Primary Care Provider: FATIMAH MCNALLY MD [Primary Care Provider] - Follow up as needed Notes: 59-year-old female with past medical history of hypertension and smoker presents with left-sided chest pain that is been intermittent since yesterday. Patient had associated nausea and 2 episodes of vomiting. Patient states she is currently chest pain-free. Patient denies any dyspnea, diaphoresis, dizziness. Patient states she had a stress test a couple years back which was negative. 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 TRAVEL OUTSIDE OF THE [place] IN LAST 30 DAYS: No - Related Data Allergies/Adverse Reactions: amoxicillin [Amoxicillin] Allergy (Severe, Verified 07/25/19 17:45) Anaphylaxis cyclobenzaprine HCl [From Flexeril] Allergy (Severe, Verified 07/25/19 17:45) Anaphylaxis tramadol [Tramadol] Allergy (Severe, Verified 07/25/19 17:45) Anaphylaxis Home Medications: Losartan/HCTZ. lipitor. trazodone. Prevacid. pletal. Proair. Symbicort Past Medical History - General Information source: Patient - Social History Smoking Status: Current Every Day Smoker Chew tobacco use (# tins/day): No Frequency of alcohol use: None Drug Abuse: None Family History: Arthritis, CAD, COPD, Hyperlipidemia, Hypertension, Malignancy. denies: CVA, DM, Thyroid Disfunction Patient has suicidal ideation: No Patient has homicidal ideation: No - Past Medical History Cardiac Medical History: Reports: Hx DVT, Hx Hypertension, Hx Peripheral Vascular Disease Denies: Hx Coronary Artery Disease, Hx Heart Attack Pulmonary Medical History: Reports: Hx Asthma, Hx Bronchitis - Once yearly, Hx COPD, Hx Pneumonia - Aug 2014 Neurological Medical History: Denies: Hx Cerebrovascular Accident, Hx Seizures Renal/ Medical History: Denies: Hx Peritoneal Dialysis Malignancy Medical History: Reports: Hx Skin Cancer GI Medical History: Reports: Hx Gastroesophageal Reflux Disease, Hx Hiatal Hernia, Hx Ulcer Musculoskeletal Medical History: Reports Hx Arthritis, Reports Hx Musculoskeletal Deformity Psychiatric Medical History: Reports: Hx Depression Past Surgical History: Reports: Hx Section - x3, Hx Vascular Surgery - Left aoro-fem bypass Apr 2015. Denies: Hx Hysterectomy - Immunizations Hx Diphtheria, Pertussis, Tetanus Vaccination: Yes Hx Pneumococcal Vaccination: 10/01/14 Review of Systems - Review of Systems Notes: Constitutional: Negative for fever. HENT: Negative for sore throat. Eyes: Negative for visual changes. Cardiovascular: Positive for chest pain. Respiratory: Negative for shortness of breath. Gastrointestinal: Positive for nausea and vomiting. Negative for abdominal pain or diarrhea. Genitourinary: Negative for dysuria. Musculoskeletal: Negative for back pain. Skin: Negative for rash. Neurological: Negative for headaches, weakness or numbness. 10 point ROS negative except as marked above and in HPI. Physical Exam - Vital signs Vitals: Temp Pulse Resp BP Pulse Ox 98.8 F 72 17 124/81 96 07/25/19 16:41 07/25/19 16:41 07/25/19 16:41 07/25/19 16:41 07/25/19 16:41 - Notes Notes: GENERAL: Well-appearing, well-nourished and in no acute distress. HEAD: Atraumatic, normocephalic. EYES: Pupils equal round and reactive to light, extraocular movements intact, sclera anicteric, conjunctiva are normal. NECK: Normal range of motion, supple without lymphadenopathy or JVD. LUNGS: Breath sounds clear to auscultation bilaterally and equal. No wheezes rales or rhonchi. HEART: Regular rate and rhythm without murmurs, rubs or gallops. ABDOMEN: Soft, nontender. No guarding, no rebound. No masses appreciated. EXTREMITIES: Normal range of motion, no pitting or edema. No clubbing or cyanosis. NEUROLOGICAL: Cranial nerves II through XII grossly intact. Normal speech, normal gait. PSYCH: Normal mood, normal affect. SKIN: Warm, Dry, normal turgor, no rashes or lesions noted. Course - Re-evaluation Re-evalutation: 07/25/19 Presentation of chest pain in an otherwise well appearing patient. Low clinical suspicion for ACS given clinical history, exam, EKG without ST elevations or depressions, and negative initial troponin. HEART score equal to 3. PE also seems unlikely given clinical history, absence of tachycardia or dyspnea. Patient is PERC criteria negative. CXR without evidence of pneumothorax or pneumonia. No widened mediastinum. Aortic dissection also seems unlikely given history, symmetric pulses, CXR, and vitals. HEART Score: 3 Chest pain in a patient without evidence of cardiac or other serious etiology on workup today. I discussed with patient that, based on their age, risk factors and emergency department testing today, the likelihood that their symptoms are related to a heart attack is very low (estimated risk of heart attack or over the next 30 days of less than 1%). The patient demonstrates decision making capacity and has verbalized an understanding of these risks to me. Based on this, the patient has chosen to follow-up as an outpatient. Usual chest pain return precautions reviewed. The patient states understanding and agreement with this plan. - Vital Signs Vital signs: Temp Pulse Resp BP Pulse Ox 98.8 F 72 17 124/81 95 07/25/19 17:45 07/25/19 16:41 07/25/19 17:45 07/25/19 16:41 07/25/19 18:37 - Laboratory Result Diagrams: 07/25/19 17:56 07/25/19 17:56 Laboratory results interpreted by me: 07/25/19 17:56 Sodium 136.8 L Est GFR (MDRD) Non-Af 59 L Glucose 112 H Discharge - Discharge Clinical Impression: Chest pain Qualifiers: Chest pain type: unspecified Qualified Code(s): R07.9 - Chest pain, unspecified Condition: Stable Disposition: HOME, SELF-CARE Instructions: Chest Pain of Unclear Cause ([facility]) Additional Instructions: You were seen today for chest pain. The exact cause of your pain is unclear. However, based on your cardiac enzyme testing, chest x-ray, and EKG it does not appear that it is from an immediately life-threatening cause at this time. Although your testing here is normal is critical that you follow-up with your primary care physician for continued evaluation of this chest pain and possible stress testing. I recommended you see your physician within the next 24-48 hours to be evaluated for consideration of a stress test. Please return to emergency department immediately if you have worsening of your chest pain, shortness of breath, vomiting, become unable to exert yourself due to pain or difficulty breathing, you pass out, or have any pain that radiates into your arms, jaw, or back. Please also return if you have any additional symptoms that are concerning to you. Referrals: FATIMAH MCNALLY MD [Primary Care Provider] - Follow up in 3-5 days RONALD CHAMPAGNE MD [EMERITUS] - Follow up in 3-5 days
[2019-07-25 23:11] VITALS: BP 114/74
== END 2019-07-25 23:12 | disposition home or self-care (01) ==
LOC: ER 16:04
DX: R07.9 Chest pain, unspecified (principal); R11.0 Nausea; F17.200 Nicotine dependence, unspecified, uncomplicated
CPT/HCPCS: 93005; 99285; 96374; 36415; 83690; 85025; 80053; 84484; 71046; 93010; J3490; S0119; J2270

== ENCOUNTER 2019-09-10 03:16 | Emergency (ER) | payer MEDICAID ==
[2019-09-10 04:22] LABS: ABSOLUTE LYMPHOCYTES (AUTO) 2.4 10^3/uL (0.5-4.7); ABSOLUTE MONOCYTES (AUTO) 0.7 10^3/uL (0.1-1.4); ABSOLUTE NEUT (AUTO) 6.1 10^3/uL (1.7-8.2); BASOPHILS % (AUTO) 0.3 % (0-2); EOSINOPHILS % (AUTO) 0.1 % (0-6); HEMATOCRIT 30.9 % (36.0-47.0); HEMOGLOBIN 10.3 g/dL (12.0-15.5); LYMPHOCYTES % (AUTO) 26.3 % (13-45); MEAN CORPUSCULAR HEMOGLOBIN 31.1 pg (27.0-33.4); MEAN CORPUSCULAR HGB CONC 33.4 g/dL (32.0-36.0); MEAN CORPUSCULAR VOLUME 93 fl (80-97); MONOCYTES % (AUTO) 7.6 % (3-13); PLATELET COUNT 431 10^3/uL (150-450); RED BLOOD COUNT 3.32 10^6/uL (3.72-5.28); RED CELL DISTRIBUTION WIDTH 13.9 % (11.5-14.0); SEGMENTED NEUTROPHILS % (AUTO) 65.7 % (42-78); TOTAL CELLS COUNTED % (AUTO) 100 %; WHITE BLOOD COUNT 9.3 10^3/uL (4.0-10.5)
[2019-09-10 04:24] LABS: APPEARANCE,URINE CLEAR; BILIRUBIN,URINE NEGATIVE (NEGATIVE); COLOR,URINE YELLOW; GLUCOSE, URINE NEGATIVE (NEGATIVE); KETONES,URINE NEGATIVE (NEGATIVE); LEUKOCYTE ESTERASE,URINE NEGATIVE (NEGATIVE); NITRITE,URINE NEGATIVE (NEGATIVE); PROTEIN,URINE NEGATIVE (NEGATIVE); URINE SPECIFIC GRAVITY 1.023; UROBILINOGEN,URINE NEGATIVE mg/dL (<2.0)
[2019-09-10 04:38] LABS: ALBUMIN 3.4 g/dL (3.5-5.0); ALKALINE PHOSPHATASE 59 U/L (38-126); ANION GAP 7 (5-19); ASPARTATE AMINO TRANSFERASE 14 U/L (14-36); BILIRUBIN,TOTAL 0.3 mg/dL (0.2-1.3); BLOOD UREA NITROGEN 42 mg/dL (7-20); CALCIUM 9.1 mg/dL (8.4-10.2); CARBON DIOXIDE 25 mmol/L (22-30); CHLORIDE 107 mmol/L (98-107); GLUCOSE 134 mg/dL (75-110); TOTAL PROTEIN 5.9 g/dL (6.3-8.2)
[2019-09-10] MEDS ORDERED: DICYCLOMINE HCL INJ 20 MG/2 ML AMPULE IM ONE (04:56)
[2019-09-10] MEDS ORDERED: NORMAL SALINE 1000 ML 1,000 ML IV ONE (04:56)
[2019-09-10] MEDS ORDERED: METOCLOPRAMIDE HCL INJ/PF 10 MG/2 ML SDV IV ONE (04:56)
--- NOTE | 2019-09-10 05:41 | ER Document Report ---
ED General <OZZY ADAMES - Last Filed: 09/10/19 08:34> - General TRAVEL OUTSIDE OF THE [place] IN LAST 30 DAYS: No <SENG IRVIN - Last Filed: 09/10/19 20:02> - General Chief Complaint: Vomiting Stated Complaint: ABDOMINAL PAIN Time Seen by Provider: 09/10/19 04:54 Primary Care Provider: FATIMAH MCNALLY MD [Primary Care Provider] - Follow up as needed Notes: 59-year-old female presents with nausea/vomiting and epigastric abdominal pain for 3 days. Patient states she was seen at [facility] in [place] and diagnosed with a viral infection. Patient states she was prescribed prednisone. Patient also states she started having tarry stools while here in the ER today. Patient denies blood in her emesis. Patient denies any fever, chest pain, shortness of breath. (SENG IRVIN) - Related Data Allergies/Adverse Reactions: amoxicillin [Amoxicillin] Allergy (Severe, Verified 09/10/19 03:39) Anaphylaxis cyclobenzaprine HCl [From Flexeril] Allergy (Severe, Verified 09/10/19 03:39) Anaphylaxis tramadol [Tramadol] Allergy (Severe, Verified 09/10/19 03:39) Anaphylaxis Past Medical History - Social History Smoking Status: Current Every Day Smoker Family History: Arthritis, CAD, COPD, Hyperlipidemia, Hypertension, Malignancy. denies: CVA, DM, Thyroid Disfunction Patient has suicidal ideation: No Patient has homicidal ideation: No - Past Medical History Cardiac Medical History: Reports: Hx DVT, Hx Hypertension, Hx Peripheral Vascular Disease Denies: Hx Coronary Artery Disease, Hx Heart Attack Pulmonary Medical History: Reports: Hx Asthma, Hx Bronchitis - Once yearly, Hx COPD, Hx Pneumonia - Aug 2014 Neurological Medical History: Denies: Hx Cerebrovascular Accident, Hx Seizures Renal/ Medical History: Denies: Hx Peritoneal Dialysis Malignancy Medical History: Reports: Hx Skin Cancer GI Medical History: Reports: Hx Gastroesophageal Reflux Disease, Hx Hiatal Hernia, Hx Ulcer Musculoskeletal Medical History: Reports Hx Arthritis, Reports Hx Musculoskeletal Deformity Psychiatric Medical History: Reports: Hx Depression Past Surgical History: Reports: Hx Section - x3, Hx Vascular Surgery - Left aoro-fem bypass Apr 2015. Denies: Hx Hysterectomy - Immunizations Hx Diphtheria, Pertussis, Tetanus Vaccination: Yes Hx Pneumococcal Vaccination: 05/13/14 <SENG IRVIN - Last Filed: 09/10/19 20:02> Review of Systems <SENG IRVIN - Last Filed: 09/10/19 20:02> - Review of Systems Notes: Constitutional: Negative for fever. HENT: Negative for sore throat. Eyes: Negative for visual changes. Cardiovascular: Negative for chest pain. Respiratory: Negative for shortness of breath. Gastrointestinal: Positive for abdominal pain, vomiting or dark tarry stools. Genitourinary: Negative for dysuria. Musculoskeletal: Negative for back pain. Skin: Negative for rash. Neurological: Negative for headaches, weakness or numbness. 10 point ROS negative except as marked above and in HPI. (SENG IRVIN) Physical Exam <SENG IRVIN - Last Filed: 09/10/19 20:02> - Vital signs Vitals: Temp Pulse Resp BP Pulse Ox 97.8 F 105 H 15 100/78 98 09/10/19 03:17 09/10/19 03:17 09/10/19 03:17 09/10/19 03:17 09/10/19 03:17 - Notes Notes: GENERAL: Well-appearing, well-nourished and uncomfortable. HEAD: Atraumatic, normocephalic. EYES: Extraocular movements intact, sclera anicteric, conjunctiva are normal. NECK: Normal range of motion, supple without lymphadenopathy or JVD. LUNGS: Breath sounds clear to auscultation bilaterally and equal. No wheezes rales or rhonchi. HEART: Regular rate and rhythm without murmurs, rubs or gallops. ABDOMEN: Soft, upper abdominal tenderness. No guarding, no rebound. No masses appreciated. RECTAL: No gross blood. Fecal hemoccult positive. EXTREMITIES: Normal range of motion, no pitting or edema. No clubbing or cyanosis. NEUROLOGICAL: Cranial nerves II through XII grossly intact. Normal speech, normal gait. PSYCH: Normal mood, normal affect. SKIN: Warm, Dry, normal turgor, no rashes or lesions noted. (SENG IRVIN) Course - Laboratory Result Diagrams: 09/10/19 04:07 09/10/19 04:07 <OZZY ADAMES - Last Filed: 09/10/19 08:34> - Laboratory Result Diagrams: 09/10/19 04:07 09/10/19 04:07 <SENG IRVIN R - Last Filed: 09/10/19 20:02> - Re-evaluation Re-evalutation: 09/10/19 08:35 Received report from Seng Irvin. Patient resting comfortably no complaints at this time. Friendly transport here to transfer patient to [facility]. Patient stable for transfer. (OZZY ADAMES) 09/10/19 59-year-old female presents with epigastric abdominal pain and nausea/vomiting for 3 days. Patient states she noticed dark tarry stools while here in the ER. Patient denies any blood in her emesis. Abdomen soft tenderness to upper area. No rebound or guarding. Nonsurgical abdomen. Patient appears uncomfortable. Patient is dry heaving while in the room. Rectal exam shows no gross blood however fecal Hemoccult is positive. Lab work shows hemoglobin of 10.3 which is a three-point drop from patient's hemoglobin of 13.5 on 07/25/19 ([address] abdomen/pelvis with IV contrast was ordered. IV fluid bolus, Reglan, and Bentyl were also ordered. Patient states Zofran that was given to her by EMS did not help. 09/10/19 06:23 Informed by RN that pt had a large bowel movement that was dark/tarry. Also pt is now c/o dyspnea. Pt is also feeling anxious. HR 88. SpO2 99%. RR 24. BP 151/74. Discussed with attending, Dr. Padilla, who states to have pt admitted for serial H&H and consult with surgery for possible colono scopy. 09/10/19 07:[address] Velez, general surgery, who recommends transfer due to new occlusion of pt's fem-fem artery bypass (no vascular surgery) and new nodule concerning for malignancy in right middle lobe. 09/10/19 07:[address] results with pt. Pt states her vascular surgeon, Dr. Bailey, is in [place]. Pt states pain has improved in her abdomen. States has appointment Sep 19 for imaging to check fem-fem artery bypass. States this is why she was having pain in her leg. 09/10/19 07:13 Called [facility] to initiate transfer. 09/10/19 07:[address] Latasha Baum at [facility] who accepted pt for transfer. (SENG IRVIN) - Vital Signs Vital signs: Temp Pulse Resp BP Pulse Ox 97.8 F 105 H 18 145/83 H 97 09/10/19 03:17 09/10/19 03:17 09/10/19 08:18 09/10/19 08:18 09/10/19 08:18 - Laboratory Laboratory results interpreted by me: 09/10/19 09/10/19 09/10/19 03:58 04:07 04:07 RBC 3.32 L Hgb 10.3 L Hct 30.9 L BUN 42 H Glucose 134 H Total Protein 5.9 L Albumin 3.4 L Urine Blood SMALL H Discharge <OZZY ADAMES - Last Filed: 09/10/19 08:34> <SENG IRVIN - Last Filed: 09/10/19 20:02> - Discharge Clinical Impression: Lower GI bleed, irregular nodule in right middle lobe, Other mechanical complication of femoral arterial graft (bypass), initial encounter Abdominal pain Qualifiers: Abdominal location: upper abdomen, unspecified Qualified Code(s): R10.10 - Upper abdominal pain, unspecified Nausea & vomiting Qualifiers: Vomiting type: unspecified Vomiting Intractability: unspecified Qualified Code(s): R11.2 - Nausea with vomiting, unspecified Condition: Stable Disposition: [facility] Referrals: FATIMAH MCNALLY MD [Primary Care Provider] - Follow up as needed
[2019-09-10] MEDS ORDERED: LORAZEPAM 0.5 MG TABLET PO ONE (06:23)
--- NOTE | 2019-09-10 06:25 | RADIOLOGY REPORT (SQ) ---
CT abdomen and pelvis with contrast on 09/10/2019 at 5:50 AM CLINICAL INDICATION: Epigastric pain, nausea and vomiting, dark tarry stool TECHNIQUE: Multiple axial images are obtained throughout the abdomen and pelvis following the administration of IV contrast, 75 mL of Omnipaque 350 contrast was administered intravenously without complication. This exam was performed according to our departmental dose-optimization program, which includes automated exposure control, adjustment of the mA and/or kV according to patient size and/or use of iterative reconstruction technique. Total DLP is 634.28 mGy*cm. COMPARISON: CT abdomen and pelvis from 08/12/[address] chest from 10/10/2016 FINDINGS: Abdomen: There is irregular 2.1 x 1.3 x 1.7 cm right middle lobe nodule seen best on axial image 12 of series 6 that is new when compared with the old chest CT. This is worrisome for malignancy. Would recommend follow-up complete chest CT to better fully evaluate per Fleischner Society recommendations 2017. The lung bases are otherwise clear. Solid abdominal organs are unremarkable. Vascular calcifications are noted. There is no abdominal adenopathy. There is no free fluid or free air within the abdomen. The upper colon is not well distended giving an appearance of mild colonic wall thickening, this may just be due to underdistention but cannot exclude a mild colitis. If this is a colitis would most likely be an infectious colitis. The abdominal portion of the GI tract is otherwise unremarkable. There is a tiny umbilical hernia containing only fat. Pelvis: There is lobulated appearance of the uterus consistent with uterine fibroids. Pelvic organs otherwise appear unremarkable by CT. There is no free fluid in the pelvis. There is no pelvic adenopathy. 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 There is new occlusion of the patient's femoral to femoral artery bypass graft. There is flow visualized within the proximal bilateral superficial femoral arteries. Pelvic portion of the GI tract including the appendix is unremarkable. Degenerative changes and levoscoliosis is noted in the lumbar spine. No acute bony abnormality is noted. IMPRESSION: 1. Partially imaged irregular nodule in the right middle lobe that is worrisome for malignancy. Recommend follow-up complete chest CT per Severo society recommendations 2017. 2. New occlusion of the patient's femoral to femoral artery bypass graft. 3. Possible mild colitis versus under distention of the upper colon.
[2019-09-10] MEDS ORDERED: LORAZEPAM INJ 2 MG/1 ML VIAL IV ONE (06:26)
[2019-09-10] MEDS ORDERED: MORPHINE SULFATE 10 MG/ML INJ IV ONE (07:58)
[2019-09-10 08:49] VITALS: BP 145/83
--- NOTE | 2019-09-10 14:21 | EKG REPORT ---
SEVERITY:- NORMAL ECG - SINUS RHYTHM : Confirmed by: Blanche Duckworth 10-Sep-2019 14:20:09
== END 2019-09-10 08:53 | disposition short-term general hospital (02) ==
LOC: ER 03:16
DX: K92.2 Gastrointestinal hemorrhage, unspecified (principal); T82.392A Other mechanical complication of femoral arterial graft (bypass), initial encounter; Y71.8 Miscellaneous cardiovascular devices associated with adverse incidents, not elsewhere classified; R91.1 Solitary pulmonary nodule; R10.13 Epigastric pain; R10.819 Abdominal tenderness, unspecified site; R11.2 Nausea with vomiting, unspecified; R06.00 Dyspnea, unspecified; F17.200 Nicotine dependence, unspecified, uncomplicated; J44.9 Chronic obstructive pulmonary disease, unspecified; Z87.892 Personal history of anaphylaxis; Z88.0 Allergy status to penicillin; Z88.8 Allergy status to other drugs, medicaments and biological substances; Z88.6 Allergy status to analgesic agent
CPT/HCPCS: 93005; 99285; 96372; 96361; 96374; 96375; 36415; 83605; 83690; 85025; 80053; 81001; 84484; 74177; 93010; J0500; J2765; J2270; J2060; J7030

== ENCOUNTER 2019-10-18 00:25 | Inpatient (IN) | payer MEDICAID ==
[2019-10-18] MEDS ORDERED: IPRATROPIUM/ALBUTEROL 0.5-2.5 MG/3 ML AMPUL NEB ONE ×2 (01:05→03:31)
[2019-10-18] MEDS ORDERED: METHYLPREDNISOLONE INJ 125 MG/2 ML SDV IV ONE (01:05)
[2019-10-18] MEDS: ALBUTEROL SULFATE 0.083% NEB 2.5 MG/3 ML AMPUL NEB SCH ×2 (01:37→04:04)
--- NOTE | 2019-10-18 01:47 | RADIOLOGY REPORT (SQ) ---
EXAM DESCRIPTION: AP portable view of the chest CLINICAL HISTORY: 59 years Female, chest tightness, shortness of breath COMPARISON: Two views of the chest 07/25/2019 FINDINGS: Lungs: Lungs are clear. No pneumonia or edema. No pneumothorax or pleural effusion. Mediastinum: Cardiac and mediastinal silhouette are normal. Bones: Osseous structures are normal. IMPRESSION: No acute process. No significant interval change.
[2019-10-18 01:54] LABS: ABSOLUTE EOSINOPHILS # (AUTO) 0.1 10^3/uL (0.0-0.6); ABSOLUTE MONOCYTES (AUTO) 0.7 10^3/uL (0.1-1.4); HEMOGLOBIN 10.8 g/dL (12.0-15.5); TOTAL CELLS COUNTED % (AUTO) 100 %; WHITE BLOOD COUNT 7.6 10^3/uL (4.0-10.5)
[2019-10-18 01:58] LABS: ABSOLUTE LYMPHOCYTES (AUTO) 1.4 10^3/uL (0.5-4.7); ABSOLUTE NEUT (AUTO) 5.4 10^3/uL (1.7-8.2); BASOPHILS % (AUTO) 0.3 % (0-2); EOSINOPHILS % (AUTO) 0.7 % (0-6); HEMATOCRIT 31.1 % (36.0-47.0); MEAN CORPUSCULAR HEMOGLOBIN 30.7 pg (27.0-33.4); MEAN CORPUSCULAR HGB CONC 34.8 g/dL (32.0-36.0); MEAN CORPUSCULAR VOLUME 88 fl (80-97); MONOCYTES % (AUTO) 8.7 % (3-13); PLATELET COUNT 399 10^3/uL (150-450); RED BLOOD COUNT 3.52 10^6/uL (3.72-5.28); RED CELL DISTRIBUTION WIDTH 14.6 % (11.5-14.0); SEGMENTED NEUTROPHILS % (AUTO) 71.3 % (42-78)
[2019-10-18 02:08] LABS: ALBUMIN 3.4 g/dL (3.5-5.0); ALKALINE PHOSPHATASE 93 U/L (38-126); ASPARTATE AMINO TRANSFERASE 16 U/L (14-36); BILIRUBIN,TOTAL 0.3 mg/dL (0.2-1.3); BLOOD UREA NITROGEN 8 mg/dL (7-20); CALCIUM 8.7 mg/dL (8.4-10.2); CREATINE KINASE 56 U/L (30-135); GLUCOSE 98 mg/dL (75-110); POTASSIUM 3.8 mmol/L (3.6-5.0)
[2019-10-18 02:15] LABS: ANION GAP 4 (5-19); CARBON DIOXIDE 29 mmol/L (22-30); CHLORIDE 104 mmol/L (98-107)
[2019-10-18 02:20] LABS: CREATINE KINASE MB 0.75 ng/mL (<4.55)
[2019-10-18 02:21] LABS: TROPONIN I < 0.012 ng/mL
[2019-10-18 02:55] LABS: APPEARANCE,URINE SLIGHTLY-CLOUDY; BILIRUBIN,URINE NEGATIVE (NEGATIVE); COLOR,URINE YELLOW; GLUCOSE, URINE NEGATIVE (NEGATIVE); KETONES,URINE NEGATIVE (NEGATIVE); LEUKOCYTE ESTERASE,URINE NEGATIVE (NEGATIVE); NITRITE,URINE NEGATIVE (NEGATIVE); PROTEIN,URINE NEGATIVE (NEGATIVE); UROBILINOGEN,URINE NEGATIVE mg/dL (<2.0)
[2019-10-18] MEDS ORDERED: ONDANSETRON HCL INJ/PF 4 MG/2 ML SDV IV ONE (03:32)
[2019-10-18] MEDS ORDERED: HYDROCODONE/ACETAMINOPHEN 5-325 MG TABLET PO ONE (03:32)
--- NOTE | 2019-10-18 03:34 | ER Document Report ---
ED Respiratory Problem - General Chief Complaint: Shortness Of Breath Stated Complaint: DIFFICULTY BREATHING Time Seen by Provider: 10/18/19 03:23 Primary Care Provider: FATIMAH MCNALLY MD [Primary Care Provider] - Follow up as needed Notes: Patient is a 59-year-old female with a history of tobacco abuse and COPD that comes emergency department for chief complaint of difficulty breathing. She states over the past couple of days she has had a large amount of difficulty catching her breath with wheezing. She states she has had a painful cough for a while. She denies specific chest pain, fever, or any other complaints. She is not on home oxygen. She is not on steroids. She states she was admitted for difficulty breathing at the end of August but not since she has not had steroids since that time. She states she has not smoked in a week. She follows with tray drier Dr. Lemons in [place]. She states she had an endoscopy yesterday to evaluate a previously bleeding ulcer. She is currently on a blood thinner because she has partial occlusion of a stent in her leg. She denies change in her leg or leg pain. She denies medical history otherwise. TRAVEL OUTSIDE OF THE [place] IN LAST 30 DAYS: No - Related Data Allergies/Adverse Reactions: amoxicillin [Amoxicillin] Allergy (Severe, Verified 09/10/19 03:39) Anaphylaxis cyclobenzaprine HCl [From Flexeril] Allergy (Severe, Verified 09/10/19 03:39) Anaphylaxis tramadol [Tramadol] Allergy (Severe, Verified 09/10/19 03:39) Anaphylaxis Past Medical History - General Information source: Patient - Social History Smoking Status: Current Some Day Smoker Frequency of alcohol use: None Drug Abuse: None Lives with: Family Family History: Arthritis, CAD, COPD, Hyperlipidemia, Hypertension, Malignancy. denies: CVA, DM, Thyroid Disfunction Patient has suicidal ideation: No Patient has homicidal ideation: No - Past Medical History Cardiac Medical History: Reports: Hx DVT, Hx Hypertension, Hx Peripheral Vascular Disease Denies: Hx Coronary Artery Disease, Hx Heart Attack Pulmonary Medical History: Reports: Hx Asthma, Hx Bronchitis - Once yearly, Hx COPD, Hx Pneumonia - Aug 2014 Neurological Medical History: Denies: Hx Cerebrovascular Accident, Hx Seizures Renal/ Medical History: Denies: Hx Peritoneal Dialysis Malignancy Medical History: Reports: Hx Skin Cancer GI Medical History: Reports: Hx Gastroesophageal Reflux Disease, Hx Hiatal Hernia, Hx Ulcer Musculoskeletal Medical History: Reports Hx Arthritis, Reports Hx Muscu loskeletal Deformity Psychiatric Medical History: Reports: Hx Depression Past Surgical History: Reports: Hx Section - x3, Hx Vascular Surgery - Left aoro-fem bypass Apr 2015. Denies: Hx Hysterectomy - Immunizations Hx Diphtheria, Pertussis, Tetanus Vaccination: Yes Hx Pneumococcal Vaccination: 05/13/14 Review of Systems - Review of Systems Constitutional: No symptoms reported EENT: No symptoms reported Cardiovascular: No symptoms reported Respiratory: See HPI Gastrointestinal: No symptoms reported Genitourinary: No symptoms reported Female Genitourinary: No symptoms reported Musculoskeletal: No symptoms reported Skin: No symptoms reported Hematologic/Lymphatic: No symptoms reported Neurological/Psychological: No symptoms reported Physical Exam - Vital signs Vitals: Temp Pulse Resp BP Pulse Ox 98.5 F 102 H 22 H 144/79 H 93 10/18/19 00:39 10/18/19 00:39 10/18/19 00:39 10/18/19 00:39 10/18/19 00:39 - Notes Notes: GENERAL: Alert, interacts well. No acute distress. HEAD: Normocephalic, atraumatic. EYES: Pupils equal, round, and reactive to light. Extraocular movements intact. ENT: Oral mucosa moist, tongue midline. Oropharynx unremarkable. Airway patent. LUNGS: Borderline tachypnea, decreased breath sounds, expiratory wheezes throughout. No rales or rhonchi noted HEART: Regular rate and rhythm. No murmur ABDOMEN: Soft, non-tender. Non-distended. Bowel sounds present in all 4 quadrants. GENITOURINARY: Deferred EXTREMITIES: Moves all 4 extremities spontaneously. Questionable minimal swelling of the left lower extremity, reportedly unchanged and chronic. Distal pulses are present, temperature equal bilaterally, no cyanosis BACK: no cervical, thoracic, lumbar midline tenderness. No saddle anesthesia, no rmal distal neurovascular exam. Moves all extremities in full range of motion. NEUROLOGICAL: Alert and oriented x3. Normal speech. Cranial nerves II through XII grossly intact. PSYCH: Normal affect, normal mood. SKIN: Warm, dry, normal turgor. No rashes or lesions noted. Course - Re-evaluation Re-evalutation: Patient initially with tachypnea, expiratory wheezes, borderline oxygen. She was placed on 2 L, started on DuoNeb. Patient only minimally improved. However after multiple duo nebs, steroids, patient significantly improved, wheezing almost completely resolved. Chest x- ray unremarkable, venous blood gas unremarkable, CBC and chemistry unremarkable. Troponin negative. Discussed with patient. She states she is considering going home. We took her off the oxygen, she ambulated, however she did very poorly, became hypoxic into the 80s, had a large amount of respiratory distress. She was placed back in the bed and back on oxygen. Patient was trialed off of oxygen shortly after this because of indecision again and she became hypoxic down to 88 at rest. Patient states this is definitely below her baseline, she does not have oxygen at home. Patient placed back on oxygen, I will discuss with hospitalist for admission. Patient is very agreeable with this plan now. Discussed with Bladimir Warner PA-C, patient accepted to medical floor observation. - Vital Signs Vital signs: Temp Pulse Resp BP Pulse Ox 98.5 F 102 H 17 125/69 100 10/18/19 05:00 10/18/19 00:39 10/18/19 06:59 10/18/19 07:00 10/18/19 07:00 - Laboratory Result Diagrams: 10/18/19 01:35 10/18/19 01:35 Laboratory results interpreted by me: 10/18/19 10/18/19 10/18/19 01:35 01:35 02:35 RBC 3.52 L Hgb 10.8 L Hct 31.1 L RDW 14.6 H Anion Gap 4 L Total Protein 6.0 L Albumin 3.4 L Urine Blood MODERATE H Discharge - Discharge Clinical Impression: Hypoxia, COPD exacerbation, Wheezing Condition: Stable Disposition: ADMITTED OBSERVATION Admitting Provider: Arian (Hospitalist) - Bladimir Warner PA-C Unit Admitted: Medical Floor Referrals: FATIMAH MCNALLY MD [Primary Care Provider] - Follow up as needed
[2019-10-18] MEDS ORDERED: METHYLPREDNISOLONE INJ 125 MG/2 ML SDV ONE (04:03)
[2019-10-18 04:51] LABS: VENOUS BLOOD BASE EXCESS 3.1 mmol/L; VENOUS BLOOD HCO3 28.4 mmol/L (20-32); VENOUS BLOOD PCO2 46.7 mmHg (35-63); VENOUS BLOOD PH 7.4 (7.30-7.42)
--- NOTE | 2019-10-18 08:30 | EKG REPORT ---
SEVERITY:- BORDERLINE ECG - SINUS TACHYCARDIA BORDERLINE T ABNORMALITIES, ANT-LAT LEADS : Confirmed by: Jamil Segal MD 18-Oct-2019 08:29:58
[2019-10-18] MEDS ORDERED: ONDANSETRON HCL INJ/PF 4 MG/2 ML SDV IV PRN (09:55)
[2019-10-18] MEDS ORDERED: TEMAZEPAM 7.5 MG CAPSULE PO PRN (09:55)
[2019-10-18] MEDS ORDERED: ONDANSETRON 4 MG TAB.RAPDIS PO PRN (09:55)
[2019-10-18] MEDS: PANTOPRAZOLE SODIUM 20 MG TABLET.DR PO SCH (10:15)
[2019-10-18] MEDS: ENOXAPARIN SODIUM INJ 40 MG/0.4 ML DISP.SYRIN SUBCUT SCH (10:15)
[2019-10-18] MEDS: DOCUSATE SODIUM 100 MG CAPSULE PO SCH (10:15)
[2019-10-18] MEDS ORDERED: (PENDING PHARMACY ID) (Albuterol Sulfate [Proair Respiclick] 2 PUFF) IH PRN (10:49)
--- NOTE | 2019-10-18 11:00 | PDOC H&P ---
History of Present Illness Admission Date/PCP: 10/18/19 09:55 FATIMAH MCNALLY MD History of Present Illness: CINDA HOUSTON is a 59 year old female who was admitted through the emergency room for COPD exacerbation.. According the patient for the last 2 days she has been coughing a lot just felt tired. No fever no chills. Patient is also had some increased shortness of breath.. Patient does not use oxygen at home.. Patient states she saw a pallet repairer in [place] last week, Dr. Lemons, who is ordered a PET scan because of a suspicious lesion in the right lung. Patient smokes about a pack per day and has done so for probably 30 years. Patient has had breathing treatments in the ER and is feeling considerably better however when she was taken off of the oxygen and tried to ambulate her sats dropped down into the 80s. 4 patient is going to be admitted to the hospital for pulmonary toiletry, IV steroids, also to include nebulizer treatments.. No antibiotics are prescribed as the patient's chest x-ray shows no acute cardiopulmonary disease, she has a normal white count, does not appear to be septic or toxic I am going to order a lactic acid as well as a flu swab Patient appears to be medically stable to transfer to the floor. Past Medical History Cardiac Medical History: Reports: DVT, Hypertension, Peripheral Vascular Disease Denies: Coronary Artery Disease, Myocardial Infarction Pulmonary Medical History: Reports: Asthma, Bronchitis - Once yearly, Chronic Obstructive Pulmonary Disease (COPD), Pneumonia - Aug 2014, Other - Suspicious lung lesion Neurological Medical History: Denies: Seizures Malignancy Medical History: Reports: Skin Cancer GI Medical History: Reports: Gastroesophageal Reflux Disease, Hiatal Hernia Musculoskeltal Medical History: Reports: Arthritis Psychiatric Medical History: Reports: Depression Hematology: Reports: Anemia Past Surgical History Past Surgical History: Reports: Section - x3, Vascular Surgery - Left aoro-fem bypass Apr 2015 Denies: Hysterectomy Social History Lives with: Family Smoking Status: Current Some Day Smoker Frequency of Alcohol Use: None Hx Recreational Drug Use: No Drugs: None Hx Prescription Drug Abuse: No - Advance Directive Resuscitation Status: Full Code Family History Family History: Arthritis, CAD, COPD, Hyperlipidemia, Hypertension, Malignancy. denies: CVA, DM, Thyroid Disfunction Parental Family History Reviewed: No Children Family History Reviewed: No Sibling(s) Family History Reviewed.: No Medication/Allergy Home Medications: Atorvastatin Calcium [Lipitor 80 mg Tablet] 80 mg PO QHS 10/09/16 Cilostazol [Pletal 100 mg Tablet] 100 mg PO BID 10/09/16 Albuterol Sulfate [Proair Respiclick] 2 puff IH Q6HP PRN 01/12/19 Lansoprazole 30 mg PO BIDP PRN 01/12/19 Losartan/Hydrochlorothiazide [Losartan-Hctz 50-12.5 mg Tab] 1 each PO DAILY 01/12/19 Trazodone HCl 50 mg PO QHS 01/12/19 Allergies/Adverse Reactions: amoxicillin [Amoxicillin] Allergy (Severe, Verified 09/10/19 03:39) Anaphylaxis cyclobenzaprine HCl [From Flexeril] Allergy (Severe, Verified 09/10/19 03:39) Anaphylaxis tramadol [Tramadol] Allergy (Severe, Verified 09/10/19 03:39) Anaphylaxis Review of Systems Constitutional: ABSENT: chills, fever(s), headache(s), weight gain, weight loss Cardiovascular: ABSENT: chest pain, dyspnea on exertion, edema, orthropnea, palpitations Respiratory: PRESENT: cough Neurological: ABSENT: abnormal gait, abnormal speech, confusion, dizziness, focal weakness, syncope Psychiatric: ABSENT: anxiety, depression, homidical ideation, suicidal ideation Physical Exam Vital Signs: Temp Pulse Resp BP Pulse Ox 97.9 F 102 H 21 H 122/59 L 99 10/18/19 10:00 10/18/19 00:39 10/18/19 10:00 10/18/19 10:00 10/18/19 10:00 Intake & Output 10/17/19 10/18/19 10/19/19 06:59 06:59 07:59 Weight 64.2 kg General appearance: PRESENT: mild distress, other - Patient states she is significantly better since receiving pulmonary treatments Respiratory exam: PRESENT: rhonchi, wheezes Cardiovascular exam: PRESENT: RRR. ABSENT: diastolic murmur, rubs, systolic murmur Neurological exam: PRESENT: alert, awake, oriented to person, oriented to place, oriented to time, oriented to situation, CN II-XII grossly intact. ABSENT: motor sensory deficit Psychiatric exam: PRESENT: appropriate affect, normal mood. ABSENT: homicidal ideation, suicidal ideation Results Laboratory Results: 10/18/19 01:35 10/18/19 01:35 10/18/19 10/18/19 10/18/19 01:35 01:35 02:35 WBC 7.6 RBC 3.52 L Hgb 10.8 L Hct 31.1 L MCV 88 MCH 30.7 MCHC 34.8 RDW 14.6 H Plt Count 399 Seg Neutrophils % 71.3 VBG pH VBG pCO2 VBG HCO3 VBG Base Excess Sodium 137.1 Potassium 3.8 Chloride 104 Carbon Dioxide 29 Anion Gap 4 L BUN 8 Creatinine 0.70 Est GFR ( Amer) > 60 Glucose 98 Calcium 8.7 Total Bilirubin 0.3 AST 16 Alkaline Phosphatase 93 Total Protein 6.0 L Albumin 3.4 L Urine Color YELLOW Urine Appearance SLIGHTLY-CLOUDY Urine pH 7.0 Ur Specific [place] 1.010 Urine Protein NEGATIVE Urine Glucose (UA) NEGATIVE Urine Ketones NEGATIVE Urine Blood MODERATE H Urine Nitrite NEGATIVE Ur Leukocyte Esterase NEGATIVE Urine WBC (Auto) 1 Urine RBC (Auto) 3 10/18/19 04:35 WBC RBC Hgb Hct MCV MCH MCHC RDW Plt Count Seg Neutrophils % VBG pH 7.40 VBG pCO2 46.7 VBG HCO3 28.4 VBG Base Excess 3.1 Sodium Potassium Chloride Carbon Dioxide Anion Gap BUN Creatinine Est GFR ( Amer) Glucose Calcium Total Bilirubin AST Alkaline Phosphatase Total Protein Albumin Urine Color Urine Appearance Urine pH Ur Specific [place] Urine Protein Urine Glucose (UA) Urine Ketones Urine Blood Urine Nitrite Ur Leukocyte Esterase Urine WBC (Auto) Urine RBC (Auto) 10/18/19 10/18/19 01:35 01:35 Creatine Kinase 56 CK-MB (CK-2) 0.75 Troponin I < 0.012 Impressions: Chest X-Ray 10/18/19 01:08 IMPRESSION: No acute process. No significant interval change. Assessment and Plan - Diagnosis (1) PAD (peripheral artery disease) Is this a current diagnosis for this admission?: Yes (2) Hypoxia Is this a current diagnosis for this admission?: Yes (3) Wheezing Is this a current diagnosis for this admission?: Yes (4) COPD exacerbation Is this a current diagnosis for this admission?: Yes (5) Tobacco abuse Is this a current diagnosis for this admission?: Yes - Plan Summary Summary: Patient will be admitted for IV steroids, nebulizer treatments, further diagnostic testing include flu swab. Explained all this to the patient she seems satisfied hopefully in 24 to 48 hours she will be able to be discharged home. Patient states she does not use home oxygen - Time Time Spent with patient: 35 or more minutes
[2019-10-18] MEDS: IPRATROPIUM/ALBUTEROL 0.5-2.5 MG/3 ML AMPUL NEB SCH ×3 (12:00→19:52)
[2019-10-18 12:43] LABS: A TYPE INFLUENZA AG NEGATIVE (NEGATIVE); B INFLUENZA AG NEGATIVE (NEGATIVE)
[2019-10-18] MEDS: ACETAMINOPHEN 325 MG TABLET PO PRN ×2 (15:10→20:12)
[2019-10-18] MEDS: CILOSTAZOL 100 MG TABLET PO SCH (18:09)
[2019-10-18] MEDS: ATORVASTATIN CALCIUM 80 MG TABLET PO SCH (21:26)
[2019-10-18] MEDS: METHYLPREDNISOLONE INJ 40 MG/1 ML SDV IV SCH (21:26)
[2019-10-18] MEDS: TRAZODONE HCL 50 MG TABLET PO SCH (21:27)
[2019-10-19] MEDS: PANTOPRAZOLE SODIUM 20 MG TABLET.DR PO SCH (05:21)
[2019-10-19 05:33] LABS: ABSOLUTE LYMPHOCYTES (AUTO) 0.8 10^3/uL (0.5-4.7); ABSOLUTE MONOCYTES (AUTO) 0.6 10^3/uL (0.1-1.4); ABSOLUTE NEUT (AUTO) 10.8 10^3/uL (1.7-8.2); BASOPHILS % (AUTO) 0.2 % (0-2); HEMOGLOBIN 9.6 g/dL (12.0-15.5); LYMPHOCYTES % (AUTO) 6.9 % (13-45); MEAN CORPUSCULAR HEMOGLOBIN 30.2 pg (27.0-33.4); MEAN CORPUSCULAR HGB CONC 34.2 g/dL (32.0-36.0); MEAN CORPUSCULAR VOLUME 88 fl (80-97); MONOCYTES % (AUTO) 4.7 % (3-13); PLATELET COUNT 401 10^3/uL (150-450); RED BLOOD COUNT 3.17 10^6/uL (3.72-5.28); RED CELL DISTRIBUTION WIDTH 14.5 % (11.5-14.0); SEGMENTED NEUTROPHILS % (AUTO) 88.2 % (42-78); TOTAL CELLS COUNTED % (AUTO) 100 %; WHITE BLOOD COUNT 12.3 10^3/uL (4.0-10.5)
[2019-10-19 05:41] LABS: ANION GAP 6 (5-19); BLOOD UREA NITROGEN 13 mg/dL (7-20); CALCIUM 9.3 mg/dL (8.4-10.2); CARBON DIOXIDE 29 mmol/L (22-30); CHLORIDE 102 mmol/L (98-107); GLUCOSE 138 mg/dL (75-110); POTASSIUM 4.3 mmol/L (3.6-5.0)
[2019-10-19] MEDS: IPRATROPIUM/ALBUTEROL 0.5-2.5 MG/3 ML AMPUL NEB SCH ×4 (08:13→19:29)
[2019-10-19] MEDS: METHYLPREDNISOLONE INJ 40 MG/1 ML SDV IV SCH ×2 (09:09→22:06)
[2019-10-19] MEDS: LOSARTAN POTASSIUM 50 MG TABLET PO SCH (09:10)
[2019-10-19] MEDS: DOCUSATE SODIUM 100 MG CAPSULE PO SCH (09:10)
[2019-10-19] MEDS: HYDROCHLOROTHIAZIDE 12.5 MG TABLET PO SCH (09:10)
[2019-10-19] MEDS: ENOXAPARIN SODIUM INJ 40 MG/0.4 ML DISP.SYRIN SUBCUT SCH (09:10)
[2019-10-19] MEDS ORDERED: (PENDING PHARMACY ID) (Losartan/Hydrochlorothiazide [Losartan-Hctz 50-12.5 Mg Tab] 1 EACH) PO SCH (10:00)
[2019-10-19] MEDS: CILOSTAZOL 100 MG TABLET PO SCH ×2 (10:14→17:34)
--- NOTE | 2019-10-19 13:09 | PDOC PROGRESS REPORT ---
Subjective Progress Note for:: 10/19/19 Reason For Visit: THE COPD EXACERBATION,HYPERTENSION,PRIPHERAL ARTERI 10/19/2019 Patient was admitted with COPD exacerbation Physical Exam Vital Signs: Temp Pulse Resp BP Pulse Ox 97.7 F 70 16 143/83 H 99 10/19/19 11:52 10/19/19 11:52 10/19/19 11:52 10/19/19 11:52 10/19/19 11:52 Intake & Output 10/18/19 10/19/19 10/20/19 05:59 06:59 06:59 Intake Total 380 Balance 380 Weight General appearance: PRESENT: mild distress, other - Secondary to persistent coughing Respiratory exam: PRESENT: decreased breath sounds, wheezes Cardiovascular exam: PRESENT: RRR. ABSENT: diastolic murmur, rubs, systolic murmur Neurological exam: PRESENT: alert, awake, oriented to person, oriented to place, oriented to time, oriented to situation, CN II-XII grossly intact. ABSENT: motor sensory deficit Psychiatric exam: PRESENT: appropriate affect, normal mood. ABSENT: homicidal ideation, suicidal ideation Results Laboratory Results: 10/19/19 04:30 10/19/19 04:30 10/18/19 10/19/19 10/19/19 12:06 04:30 04:30 WBC 12.3 H RBC 3.17 L Hgb 9.6 L Hct 28.0 L MCV 88 MCH 30.2 MCHC 34.2 RDW 14.5 H Plt Count 401 Seg Neutrophils % 88.2 H Sodium 137.1 Potassium 4.3 Chloride 102 Carbon Dioxide 29 Anion Gap 6 BUN 13 Creatinine 0.63 Est GFR ( Amer) > 60 Glucose 138 H Lactic Acid 2.2 H Calcium 9.3 Magnesium 2.3 10/18/19 10/18/19 10/18/19 01:35 01:35 10:20 Creatine Kinase 56 CK-MB (CK-2) 0.75 Troponin I < 0.012 NT-Pro-B Natriuret Pep 423 H Impressions: Chest X-Ray 10/18/19 01:08 IMPRESSION: No acute process. No significant interval change. Assessment and Plan - Diagnosis (1) PAD (peripheral artery disease) Is this a current diagnosis for this admission?: Yes (2) Hypoxia Is this a current diagnosis for this admission?: Yes (3) Wheezing Is this a current diagnosis for this admission?: Yes (4) COPD exacerbation Is this a current diagnosis for this admission?: Yes (5) Tobacco abuse Is this a current diagnosis for this admission?: Yes - Plan Summary Summary: Patient will be admitted for IV steroids, nebulizer treatments, further diagnostic testing include flu swab. Explained all this to the patient she seems satisfied hopefully in 24 to 48 hours she will be able to be discharged home. Patient states she does not use home oxygen 10/19/2019 Temperature 97.8 pulse 72 respirations respirations are 12-20 Currently O2 sat is 99% on room air. Saturation has been low to 91% but on average in the upper 90s Blood pressure is very stable 124/65 and later 143/83 White count is up slightly to 12.3 but this is probably steroids Admission chest x-ray was negative. Patient has persistent cough which will be addressed with Robitussin, will continue steroids Lactic acid 2.2 and this will be repeated Anticipate discharge tomorrow - Time Time Spent with patient: 25-34 minutes
[2019-10-19] MEDS: GUAIFENESIN/CODEINE PHOS 100-10 MG/ 5 ML UDC PO PRN ×2 (14:06→20:20)
[2019-10-19] MEDS: ACETAMINOPHEN 325 MG TABLET PO PRN (17:34)
[2019-10-19] MEDS: KETOROLAC TROMETHAMINE INJ/PF 30 MG/1 ML SDV IV PRN (18:07)
[2019-10-19] MEDS: ATORVASTATIN CALCIUM 80 MG TABLET PO SCH (22:06)
[2019-10-19] MEDS: TRAZODONE HCL 50 MG TABLET PO SCH (22:06)
[2019-10-20] MEDS: KETOROLAC TROMETHAMINE INJ/PF 30 MG/1 ML SDV IV PRN ×2 (00:24→11:37)
[2019-10-20] MEDS: PANTOPRAZOLE SODIUM 20 MG TABLET.DR PO SCH (05:05)
[2019-10-20] MEDS ORDERED: ALBUTEROL SULFATE HFA (90 MCG/PUFF) 8 GM MDI IH PRN (08:48)
[2019-10-20] MEDS: IPRATROPIUM/ALBUTEROL 0.5-2.5 MG/3 ML AMPUL NEB SCH ×2 (08:49→12:41)
[2019-10-20] MEDS ORDERED: LEVOFLOXACIN 750 MG TABLET PO ONE (09:00)
[2019-10-20] MEDS: HYDROCHLOROTHIAZIDE 12.5 MG TABLET PO SCH (11:35)
[2019-10-20] MEDS: LOSARTAN POTASSIUM 50 MG TABLET PO SCH (11:36)
[2019-10-20] MEDS: CILOSTAZOL 100 MG TABLET PO SCH (11:36)
[2019-10-20] MEDS: DOCUSATE SODIUM 100 MG CAPSULE PO SCH (11:37)
[2019-10-20] MEDS: METHYLPREDNISOLONE INJ 40 MG/1 ML SDV IV SCH (11:37)
[2019-10-20] MEDS: ENOXAPARIN SODIUM INJ 40 MG/0.4 ML DISP.SYRIN SUBCUT SCH (11:38)
[2019-10-20 12:48] VITALS: BP 142/73
--- NOTE | 2019-10-20 18:49 | PDOC DISCHARGE SUMMARY ---
Impression - Admit/DC Date/PCP Admission Date/Primary Care Provider: 10/18/19 09:55 FATIMAH MCNALLY MD Discharge Date: 10/20/19 - Discharge Diagnosis (1) PAD (peripheral artery disease) Is this a current diagnosis for this admission?: Yes (2) Hypoxia Is this a current diagnosis for this admission?: Yes (3) Wheezing Is this a current diagnosis for this admission?: Yes (4) COPD exacerbation Is this a current diagnosis for this admission?: Yes (5) Tobacco abuse Is this a current diagnosis for this admission?: Yes - Assessment Summary: Patient will be admitted for IV steroids, nebulizer treatments, further diagnostic testing include flu swab. Explained all this to the patient she seems satisfied hopefully in 24 to 48 hours she will be able to be discharged home. Patient states she does not use home oxygen 10/19/2019 Temperature 97.8 pulse 72 respirations respirations are 12-20 Currently O2 sat is 99% on room air. Saturation has been low to 91% but on average in the upper 90s Blood pressure is very stable 124/65 and later 143/83 White count is up slightly to 12.3 but this is probably steroids Admission chest x-ray was negative. Patient has persistent cough which will be addressed with Robitussin, will continue steroids Lactic acid 2.2 and this will be repeated Anticipate discharge tomorrow 10/20/2019 Patient is feeling much better today and was asking to be discharge. States th at she is now starting to cough up green-yellow sputum. And is coughing more as well. Because of this I gave her a dose of Levaquin today 750 mg and send her home with 6 more days to complete a 7-day course. Also send her home with a prescription for Robitussin-AC and a Medrol Dosepak. Patient was admitted with a COPD exacerbation other comorbidities include hypertension and PAD Patient's admission chest x-ray showed no active acute cardiopulmonary disease Patient was treated with pulmonary toiletry as well as IV steroids and cough medicine. Patient almost wanted to be discharged from the emergency room but I told her she is needed a day or 2 in the hospital and she has improved since being in the hospital. She is medically stable for discharge - Additional Information Resuscitation Status: Full Code Discharge Diet: As Tolerated Discharge Activity: Bedrest Referrals: FATIMAH MCNALLY MD [Primary Care Provider] - Follow up as needed (LEFT MESSAGE WITH MADELYN FOR FOLLOW APPT INFORMATION) Prescriptions: Methylprednisolone [Medrol Dosepack (4 mg/Tab) 21 Tab/Dosepak] 4 mg PO ASDIR PRN #21 tab.ds.pk PRN Reason: Guaifenesin/Codeine Phos [Robitussin-AC Liquid 5 ml Udcup] 5 ml PO QIDP PRN 7 Days #120 udc PRN Reason: Home Medications: Atorvastatin Calcium [Lipitor 80 mg Tablet] 80 mg PO QHS 10/09/16 Cilostazol [Pletal 100 mg Tablet] 100 mg PO BID 10/09/16 Albuterol Sulfate [Proair Respiclick] 2 puff IH Q6HP PRN 01/12/19 Lansoprazole 30 mg PO BIDP PRN 01/12/19 Losartan/Hydrochlorothiazide [Losartan-Hctz 50-12.5 mg Tab] 1 each PO DAILY 01/12/19 Trazodone HCl 50 mg PO QHS 01/12/19 Acetaminophen [Tylenol 325 mg Tablet] 650 mg PO Q4HP PRN tablet 10/20/19 Docusate Sodium [Colace 100 mg Capsule] 100 mg PO DAILY capsule 10/20/19 Guaifenesin/Codeine Phos [Robitussin-AC Liquid 5 ml Udcup] 5 ml PO QIDP PRN 7 Days #120 udc 10/20/19 Methylprednisolone [Medrol Dosepack (4 mg/Tab) 21 Tab/Dosepak] 4 mg PO ASDIR PRN #21 tab.ds.pk 10/20/19 History of Present Illiness History of Present Illness: CINDA HOUSTON is a 59 year old female who was admitted through the emergency room for COPD exacerbation.. According the patient for the last 2 days she has b een coughing a lot just felt tired. No fever no chills. Patient is also had some increased shortness of breath.. Patient does not use oxygen at home.. Patient states she saw a head of precision targeting in [place] last week, Dr. Lemons, who is ordered a PET scan because of a suspicious lesion in the right lung. Patient smokes about a pack per day and has done so for probably 30 years. Patient has had breathing treatments in the ER and is feeling considerably better however when she was taken off of the oxygen and tried to ambulate her sats dropped down into the 80s. 4 patient is going to be admitted to the hospital for pulmonary toiletry, IV steroids, also to include nebulizer treatments.. No antibiotics are prescribed as the patient's chest x-ray shows no acute cardiopulmonary disease, she has a normal white count, does not appear to be septic or toxic I am going to order a lactic acid as well as a flu swab Patient appears to be medically stable to transfer to the floor. Physical Exam Vital Signs: Temp Pulse Resp BP Pulse Ox 97.4 F 83 16 133/69 H 93 10/20/19 12:09 10/20/19 12:49 10/20/19 12:49 10/20/19 12:09 10/20/19 12:49 Intake & Output 10/19/19 10/20/19 10/21/19 06:59 06:59 06:59 Intake Total 616 Balance 616 Weight Results Laboratory Results: WBC 12.3 10^3/uL (4.0-10.5) H 10/19/19 04:30 RBC 3.17 10^6/uL (3.72-5.28) L 10/19/19 04:30 Hgb 9.6 g/dL (12.0-15.5) L 10/19/19 04:30 Hct 28.0 % (36.0-47.0) L 10/19/19 04:30 MCV 88 fl (80-97) 10/19/19 04:30 MCH 30.2 pg (27.0-33.4) 10/19/19 04:30 MCHC 34.2 g/dL (32.0-36.0) 10/19/19 04:30 RDW 14.5 % (11.5-14.0) H 10/19/19 04:30 Plt Count 401 10^3/uL (150-450) 10/19/19 04:30 Lymph % (Auto) 6.9 % (13-45) L 10/19/19 04:30 [place] % (Auto) 4.7 % (3-13) 10/19/19 04:30 Eos % (Auto) 0.0 % (0-6) 10/19/19 04:30 Baso % (Auto) 0.2 % (0-2) 10/19/19 04:30 Absolute Neuts (auto) 10.8 10^3/uL (1.7-8.2) H 10/19/19 04:30 Absolute Lymphs (auto) 0.8 10^3/uL (0.5-4.7) 10/19/19 04:30 Absolute Monos (auto) 0.6 10^3/uL (0.1-1.4) 10/19/19 04:30 Absolute Eos (auto) 0.0 10^3/uL (0.0-0.6) 10/19/19 04:30 Absolute Basos (auto) 0.0 10^3/uL (0.0-0.2) 10/19/19 04:30 Seg Neutrophils % 88.2 % (42-78) H 10/19/19 04:30 VBG pH 7.40 (7.30-7.42) 10/18/19 04:35 VBG pCO2 46.7 mmHg (35-63) 10/18/19 04:35 VBG HCO3 28.4 mmol/L (20-32) 10/18/19 04:35 VBG Base Excess 3.1 mmol/L 10/18/19 04:35 Sodium 137.1 mmol/L (137-145) 10/19/19 04:30 Potassium 4.3 mmol/L (3.6-5.0) 10/19/19 04:30 Chloride 102 mmol/L (98-107) 10/19/19 04:30 Carbon Dioxide 29 mmol/L (22-30) 10/19/19 04:30 Anion Gap 6 (5-19) 10/19/19 04:30 BUN 13 mg/dL (7-20) 10/19/19 04:30 Creatinine 0.63 mg/dL (0.52-1.25) 10/19/19 04:30 Est GFR ( Amer) > 60 (>60) 10/19/19 04:30 Est GFR (MDRD) Non-Af > 60 (>60) 10/19/19 04:30 Glucose 138 mg/dL (75-110) H 10/19/19 04:30 Lactic Acid 2.2 mmol/L (0.7-2.1) H 10/18/19 12:06 Calcium 9.3 mg/dL (8.4-10.2) 10/19/19 04:30 Magnesium 2.3 mg/dL (1.6-2.3) 10/19/19 04:30 Total Bilirubin 0.3 mg/dL (0.2-1.3) 10/18/19 01:35 Direct Bilirubin 0.0 mg/dL (0.0-0.4) 10/18/19 01:35 Neonat Total Bilirubin Not Reportable 10/18/19 01:35 Neonat Direct Bilirubin Not Reportable 10/18/19 01:35 Neonat Indirect Bili Not Reportable 10/18/19 01:35 AST 16 U/L (14-36) 10/18/19 01:35 ALT 12 U/L (<35) 10/18/19 01:35 Alkaline Phosphatase 93 U/L (38-126) 10/18/19 01:35 Creatine Kinase 56 U/L (30-135) 10/18/19 01:35 CK-MB (CK-2) 0.75 ng/mL (<4.55) 10/18/19 01:35 Troponin I < 0.012 ng/mL 10/18/19 01:35 NT-Pro-B Natriuret Pep 423 pg/mL (<125) H 10/18/19 10:20 Total Protein 6.0 g/dL (6.3-8.2) L 10/18/19 01:35 Albumin 3.4 g/dL (3.5-5.0) L 10/18/19 01:35 Urine Color YELLOW 10/18/19 02:35 Urine Appearance SLIGHTLY-CLOUDY 10/18/19 02:35 Urine pH 7.0 (5.0-9.0) 10/18/19 02:35 Ur Specific [place] 1.010 10/18/19 02:35 Urine Protein NEGATIVE mg/dL (NEGATIVE) 10/18/19 02:35 Urine Glucose (UA) NEGATIVE mg/dL (NEGATIVE) 10/18/19 02:35 Urine Ketones NEGATIVE mg/dL (NEGATIVE) 10/18/19 02:35 Urine Blood MODERATE (NEGATIVE) H 10/18/19 02:35 Urine Nitrite NEGATIVE (NEGATIVE) 10/18/19 02:35 Urine Bilirubin NEGATIVE (NEGATIVE) 10/18/19 02:35 Urine Urobilinogen NEGATIVE mg/dL (<2.0) 10/18/19 02:35 Ur Leukocyte Esterase NEGATIVE (NEGATIVE) 10/18/19 02:35 Urine WBC (Auto) 1 /HPF 10/18/19 02:35 Urine RBC (Auto) 3 /HPF 10/18/19 02:35 Squamous Epi Cells Auto 1 /HPF 10/18/19 02:35 Urine Mucus (Auto) RARE /LPF 10/18/19 02:35 Urine Ascorbic Acid NEGATIVE (NEGATIVE) 10/18/19 02:35 Influenza A (Rapid) NEGATIVE (NEGATIVE) 10/18/19 12:06 Influenza B (Rapid) NEGATIVE (NEGATIVE) 10/18/19 12:06 10/18/19 10/18/19 01:35 10:20 CK-MB (CK-2) 0.75 Troponin I < 0.012 NT-Pro-B Natriuret Pep 423 H Impressions: Chest X-Ray 10/18/19 01:08 IMPRESSION: No acute process. No significant interval change. Stroke Is this a Stroke Patient?: No Acute Heart Failure - Is this a Heart Failure Patient?: No
== END 2019-10-20 13:26 | disposition home or self-care (01) | DRG 192 ==
LOC: ER 00:25 → EH 08:34 → OBSVTOIN 09:55 → 4N 18:27
PROVIDERS: ADMIT Internal Medicine; ATTEND Internal Medicine
DX: J44.1 Chronic obstructive pulmonary disease with (acute) exacerbation (principal); R09.02 Hypoxemia; J98.4 Other disorders of lung; I73.9 Peripheral vascular disease, unspecified; I10 Essential (primary) hypertension; K21.9 Gastro-esophageal reflux disease without esophagitis; F17.210 Nicotine dependence, cigarettes, uncomplicated; Z79.01 Long term (current) use of anticoagulants; Z86.718 Personal history of other venous thrombosis and embolism
CPT/HCPCS: 36415; 71045; 80048; 80053; 81001; 82550; 82553; 82803; 83605; 83735; 83880; 84484; 85025; 87804; 93005; 93010; 94640; 96374; 96375; 99285; J1650; J1885; J2405; J2920; J2930; J3490; J7620

== ENCOUNTER 2019-11-24 02:47 | Emergency (ER) | payer MEDICAID ==
--- NOTE | 2019-11-24 03:13 | ER Document Report ---
ED GI/ - General Chief Complaint: Abdominal Pain Stated Complaint: ABDOMINAL PAIN Time Seen by Provider: 11/24/19 03:06 Primary Care Provider: FATIMAH MCNALLY MD [Primary Care Provider] - Follow up as needed Mode of Arrival: Ambulatory Information source: Patient Notes: 59-year-old female patient presented to the emergency department chief complaint of right-sided rib pain. Patient reports she had a lung biopsy done a few weeks ago, she has had increased pain since that time. She reports cough that is nonproductive and low-grade fevers at home. She denies any difficulty breathing or shortness of breath. She does report a recent diagnosis of lung cancer. TRAVEL OUTSIDE OF THE [place] IN LAST 30 DAYS: No - Related Data Allergies/Adverse Reactions: amoxicillin [Amoxicillin] Allergy (Severe, Verified 09/10/19 03:39) Anaphylaxis cyclobenzaprine HCl [From Flexeril] Allergy (Severe, Verified 09/10/19 03:39) Anaphylaxis tramadol [Tramadol] Allergy (Severe, Verified 09/10/19 03:39) Anaphylaxis Home Medications: Lipitor. Losartan. Previcid. Cymbicort. Pletal. Proair. Spiriva Past Medical History - General Information source: Patient - Social History Smoking Status: Former Smoker Frequency of alcohol use: None Drug Abuse: None Family History: Arthritis, CAD, COPD, Hyperlipidemia, Hypertension, Malignancy. denies: CVA, DM, Thyroid Disfunction Patient has suicidal ideation: No Patient has homicidal ideation: No - Past Medical History Cardiac Medical History: Reports: Hx DVT, Hx Hypertension, Hx Peripheral Vascular Disease Denies: Hx Coronary Artery Disease, Hx Heart Attack Pulmonary Medical History: Reports: Hx Asthma, Hx Bronchitis - Once yearly, Hx COPD, Hx Pneumonia - Aug 2014 Neurological Medical History: Denies: Hx Cerebrovascular Accident, Hx Seizures Renal/ Medical History: Denies: Hx Peritoneal Dialysis Malignancy Medical History: Reports: Hx Skin Cancer GI Medical History: Reports: Hx Gastroesophageal Reflux Disease, Hx Hiatal Her nat[place], Hx Ulcer Musculoskeletal Medical History: Reports Hx Arthritis, Reports Hx Musculoskeletal Deformity Psychiatric Medical History: Reports: Hx Depression Past Surgical History: Reports: Hx Section - x3, Hx Vascular Surgery - Left aoro-fem bypass Apr 2015. Denies: Hx Hysterectomy - Immunizations Hx Diphtheria, Pertussis, Tetanus Vaccination: Yes Hx Pneumococcal Vaccination: 05/13/14 Review of Systems - Review of Systems Respiratory: Cough, Hurts to breathe Musculoskeletal: Other - Right rib pain Physical Exam - Vital signs Vitals: Temp Pulse Resp BP Pulse Ox 98.3 F 96 18 147/76 H 95 11/24/19 02:53 11/24/19 02:53 11/24/19 02:53 11/24/19 02:53 11/24/19 02:53 - Notes Notes: PHYSICAL EXAMINATION: GENERAL: Well-appearing, well-nourished and in no acute distress. HEAD: Atraumatic, normocephalic. EYES: Pupils equal round and reactive to light, extraocular movements intact, conjunctiva are normal. ENT: Nares patent, oropharynx clear without exudates. Moist mucous membranes. NECK: Normal range of motion, supple without lymphadenopathy LUNGS: Breath sounds clear to auscultation bilaterally and equal. No wheezes rales or rhonchi. HEART: Regular rate and rhythm without murmurs ABDOMEN: Soft, nontender, nondistended abdomen. No guarding, no rebound. No masses appreciated. Female : deferred Musculoskeletal: Normal range of motion, no pitting or edema. No cyanosis. Point tenderness over the right anterior ribs, no crepitus or deformity. NEUROLOGICAL: Cranial nerves grossly intact. Normal speech, normal gait. Normal sensory, motor exams PSYCH: Normal mood, normal affect. SKIN: Warm, Dry, normal turgor, no rashes or lesions noted. Course - Re-evaluation Re-evalutation: Laboratory 11/24/19 11/24/19 03:25 03:25 WBC 7.4 RBC 3.42 L Hgb 10.1 L Hct 30.0 L MCV 88 MCH 29.5 MCHC 33.7 RDW 16.7 H Plt Count 454 H Lymph % (Auto) 17.2 [place] % (Auto) 11.4 Eos % (Auto) 1.4 Baso % (Auto) 0.7 Absolute Neuts (auto) 5.1 Absolute Lymphs (auto) 1.3 Absolute Monos (auto) 0.8 Absolute Eos (auto) 0.1 Absolute Basos (auto) 0.1 Seg Neutrophils % 69.3 Sodium 135.4 L Potassium 4.1 Chloride 101 Carbon Dioxide 29 Anion Gap 5 BUN 12 Creatinine 0.74 Est GFR ( Amer) > 60 Est GFR (MDRD) Non-Af > 60 Glucose 117 H Calcium 9.1 Total Bilirubin 0.4 Direct Bilirubin 0.0 Neonat Total Bilirubin Not Reportable Neonat Direct Bilirubin Not Reportable Neonat Indirect Bili Not Reportable AST 22 ALT 21 Alkaline Phosphatase 86 Total Protein 6.9 Albumin 3.7 Lipase 44.7 Chest X-Ray 11/24/19 03:11 IMPRESSION: Moderate right lower lobar pneumonia. Small left basilar component. New compared with prior exam from October 18, 2019. Patient appears well, nontoxic, vital signs within normal limits. Patient has a moderate lower lobar pneumonia on x-ray. Patient is able to tolerate oral antibiotics so she will be discharged home at this time. - Vital Signs Vital signs: Temp Pulse Resp BP Pulse Ox 98.6 F 89 20 139/78 H 96 11/24/19 05:00 11/24/19 05:00 11/24/19 05:00 11/24/19 05:00 11/24/19 05:00 - Laboratory Result Diagrams: 11/24/19 03:25 11/24/19 03:25 Laboratory results interpreted by me: 11/24/19 11/24/19 03:25 03:25 RBC 3.42 L Hgb 10.1 L Hct 30.0 L RDW 16.7 H Plt Count 454 H Sodium 135.4 L Glucose 117 H Discharge - Discharge Clinical Impression: Pneumonia Qualifiers: Pneumonia type: due to unspecified organism Laterality: right Lung location: lower lobe of lung Qualified Code(s): J18.9 - Pneumonia, unspecified organism Condition: Stable Disposition: HOME, SELF-CARE Additional Instructions: You have been diagnosed with a pneumonia. It is very important that you take all of your antibiotics until they are gone even if you are feeling better. Use the incentive spirometer 10 times per hour while awake to help expand your lungs. Please return to the emergency department immediately if you began having worsening shortness of breath, become confused, have worsening pain, pass out, have persistent vomiting that prevents you from being able to drink fluids for more than 12 hours, or have any other symptoms that are worrisome to you. Please follow-up with your primary care doctor in the next 1-2 days. Prescriptions: Oxycodone HCl/Acetaminophen [Percocet 5-325 mg Tablet] 1 - 2 tab PO Q4H PRN #20 tablet PRN Reason: Doxycycline Hyclate [Vibramycin 100 mg Tablet] 100 mg PO BID #14 tablet Referrals: FATIMAH MCNALLY MD [Primary Care Provider] - Follow up as needed
[2019-11-24 03:38] LABS: ABSOLUTE BASOPHILS # (AUTO) 0.1 10^3/uL (0.0-0.2); ABSOLUTE EOSINOPHILS # (AUTO) 0.1 10^3/uL (0.0-0.6); ABSOLUTE LYMPHOCYTES (AUTO) 1.3 10^3/uL (0.5-4.7); ABSOLUTE MONOCYTES (AUTO) 0.8 10^3/uL (0.1-1.4); ABSOLUTE NEUT (AUTO) 5.1 10^3/uL (1.7-8.2); BASOPHILS % (AUTO) 0.7 % (0-2); EOSINOPHILS % (AUTO) 1.4 % (0-6); HEMOGLOBIN 10.1 g/dL (12.0-15.5); LYMPHOCYTES % (AUTO) 17.2 % (13-45); MEAN CORPUSCULAR HEMOGLOBIN 29.5 pg (27.0-33.4); MEAN CORPUSCULAR HGB CONC 33.7 g/dL (32.0-36.0); MEAN CORPUSCULAR VOLUME 88 fl (80-97); MONOCYTES % (AUTO) 11.4 % (3-13); PLATELET COUNT 454 10^3/uL (150-450); RED BLOOD COUNT 3.42 10^6/uL (3.72-5.28); RED CELL DISTRIBUTION WIDTH 16.7 % (11.5-14.0); SEGMENTED NEUTROPHILS % (AUTO) 69.3 % (42-78); TOTAL CELLS COUNTED % (AUTO) 100 %; WHITE BLOOD COUNT 7.4 10^3/uL (4.0-10.5)
[2019-11-24 04:03] LABS: ALBUMIN 3.7 g/dL (3.5-5.0); ALKALINE PHOSPHATASE 86 U/L (38-126); ANION GAP 5 (5-19); ASPARTATE AMINO TRANSFERASE 22 U/L (14-36); BILIRUBIN,TOTAL 0.4 mg/dL (0.2-1.3); BLOOD UREA NITROGEN 12 mg/dL (7-20); CALCIUM 9.1 mg/dL (8.4-10.2); CARBON DIOXIDE 29 mmol/L (22-30); CHLORIDE 101 mmol/L (98-107); GLUCOSE 117 mg/dL (75-110); POTASSIUM 4.1 mmol/L (3.6-5.0); TOTAL PROTEIN 6.9 g/dL (6.3-8.2)
--- NOTE | 2019-11-24 04:23 | RADIOLOGY REPORT (SQ) ---
EXAM DESCRIPTION: XR CHEST 1 VIEW COMPLETED DATE/TME: 11/24/2019 03:11 CLINICAL HISTORY: 59 years Female, cough/ruq pain COMPARISON: 10/18/19 NUMBER OF VIEWS/TECHNIQUE: 1/AP FINDINGS: Moderate patchy opacities of the right lower lobe. Small left costophrenic angle opacity-effusion.Normal cardiac silhouette size. No pneumothorax. Stable bony thorax.Atherosclerotic vascular disease. IMPRESSION: Moderate right lower lobar pneumonia. Small left basilar component. New compared with prior exam from October 18, 2019.
[2019-11-24] MEDS ORDERED: DOXYCYCLINE HYCLATE 100 MG TABLET PO ONE (04:46)
[2019-11-24] MEDS ORDERED: HYDROCODONE/ACETAMINOPHEN 5-325 MG (6 TAB/ER DISP) PO PRN (04:46)
[2019-11-24 05:06] VITALS: BP 139/78
== END 2019-11-24 05:00 | disposition home or self-care (01) ==
LOC: ER 02:47
DX: J18.9 Pneumonia, unspecified organism (principal); R10.9 Unspecified abdominal pain; R07.81 Pleurodynia; R05 Cough; R50.9 Fever, unspecified; Z98.890 Other specified postprocedural states; Z88.1 Allergy status to other antibiotic agents; Z88.8 Allergy status to other drugs, medicaments and biological substances; Z79.899 Other long term (current) drug therapy; Z87.891 Personal history of nicotine dependence; J45.909 Unspecified asthma, uncomplicated; J44.9 Chronic obstructive pulmonary disease, unspecified
CPT/HCPCS: 99284; 36415; 83690; 85025; 80053; 71045; J3490

== ENCOUNTER → 2019-12-15 | Outpatient (CLI) | payer MEDICAID ==
--- NOTE | 2019-12-15 16:43 | RADIOLOGY REPORT (SQ) ---
EXAM DESCRIPTION: MRI HEAD COMBO IMAGES COMPLETED DATE/TIME: 12/15/2019 1:55 pm REASON FOR STUDY: C34.2 MALIGNANT NEOPLASM OF MIDDLE LOBE, BRONCHUS OR LUNG C34.2 MALIGNANT NEOPLAS M OF MIDDLE LOBE, BRONCHUS OR LUNG COMPARISON: None. TECHNIQUE: Multiplanar imaging includes noncontrasted T1, T2, FLAIR, diffusion with ADC map and post gadolinium contrast T1 sequences. Images stored on PACS. CONTRAST TYPE AND DOSE: 10 mL Prohance. RENAL FUNCTION: Not indicated. ACR Type II contrast agent associated with few, if any, unconfounded cases of NSF LIMITATIONS: None. FINDINGS: ANATOMY: No anomalies. Normal vascular flow voids. Pituitary fossa normal. CSF SPACES: Normal in size and contour. No hemorrhage. CEREBRUM: Sulci and gyri normal in size and contour. Normal white matter signal on FLAIR imaging. No evidence of hemorrhage, mass, or extraaxial fluid collection. No abnormal enhancement post contrast. POSTERIOR FOSSA: No signal alteration. No hemorrhage. No edema, masses, or mass effect. Internal becka tory canals, cerebellopontine angles, mastoids normal. No enhancing lesions. No abnormal enhancement post contrast. DIFFUSION IMAGING: Negative for acute or subacute infarction. ORBITS: No masses. Globes normal. PARANASAL SINUSES: No fluid levels. Mucosa normal. OTHER: No other significant finding. IMPRESSION: No evidence of metastatic disease. EVIDENCE OF ACUTE STROKE: NO. TECHNICAL DOCUMENTATION: JOB ID: [id number] 2010 [employer]- All Rights Reserved Reading location - IP/workstation name: [email or web address]
== END ==
LOC: RAD 12:56
PROVIDERS: ATTEND Internal Medicine
DX: C34.2 Malignant neoplasm of middle lobe, bronchus or lung (principal)
CPT/HCPCS: 70553; A9576

== ENCOUNTER 2020-02-22 09:04 | Emergency (ER) | payer MEDICAID ==
--- NOTE | 2020-02-22 10:36 | RADIOLOGY REPORT (SQ) ---
EXAM DESCRIPTION: HUMERUS LEFT IMAGES COMPLETED DATE/TIME: 02/22/2020 10:21 am REASON FOR STUDY: pain w/ rom, no trauma COMPARISON: None. NUMBER OF VIEWS: Two views. TECHNIQUE: Two radiographic images were acquired of the left humerus to include elbow and shoulder i n at least one projection. LIMITATIONS: None. FINDINGS: MINERALIZATION: Normal. BONES: No acute fracture or dislocation. No worrisome bone lesions. SOFT TISSUES: No obvious swelling or foreign body. OTHER: No other significant finding. IMPRESSION: NO RADIOGRAPHIC EVIDENCE OF ACUTE INJURY. TECHNICAL DOCUMENTATION: JOB ID: [id number] 2010 [employer]- All Rights Reserved Reading location - IP/workstation name: [email or web address]
--- NOTE | 2020-02-22 10:38 | RADIOLOGY REPORT (SQ) ---
EXAM DESCRIPTION: SHOULDER LEFT 2 OR MORE VIEWS IMAGES COMPLETED DATE/TIME: 02/22/2020 10:21 am REASON FOR STUDY: pain w/ ROM, no trauma. COMPARISON: None. NUMBER OF VIEWS: Three views. TECHNIQUE: Internal rotation, external rotation, and Y view images acquired of the left shoulder. LIMITATIONS: None. FINDINGS: MINERALIZATION: Normal. BONES: No acute fracture. No worrisome bone lesions. JOINTS: No dislocation. Mild glenohumeral degenerative changes. VISUALIZED LUNGS AND RIBS: No pneumothorax. No rib fracture. SOFT TISSUES: No radiopaque foreign body. OTHER: No other significant finding. IMPRESSION: Mild glenohumeral degenerative changes. No evidence of acute osseous injury. TECHNICAL DOCUMENTATION: JOB ID: [id number] 2010 [employer]- All Rights Reserved Reading location - IP/workstation name: [email or web address]
--- NOTE | 2020-02-22 12:24 | ER Document Report ---
Entered by RAMSES GUNTER SCRIBE 02/22/20 1001 Acting as scribe for:JANNA ZHENG MD ED General - General Chief Complaint: Shoulder Pain Stated Complaint: LEFT SHOULDER PAIN Time Seen by Provider: 02/22/20 09:47 Primary Care Provider: FATIMAH MCNALLY MD [Primary Care Provider] - Follow up as needed Information source: Patient Notes: This 60 year old female patient presents to the emergency department today with complaints of pain in her left shoulder. Patient states the pain began x1.5 weeks ago and was sudden. Patient states the pain has been increasing and denies any trauma or injury to her shoulder. 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 TRAVEL OUTSIDE OF THE [place] IN LAST 30 DAYS: No - Related Data Allergies/Adverse Reactions: amoxicillin [Amoxicillin] Allergy (Severe, Verified 02/22/20 09:57) Anaphylaxis cyclobenzaprine HCl [From Flexeril] Allergy (Severe, Verified 02/22/20 09:57) Anaphylaxis tramadol [Tramadol] Allergy (Severe, Verified 02/22/20 09:57) Anaphylaxis Past Medical History - General Information source: Patient - Social History Smoking Status: Unknown if Ever Smoked Family History: Arthritis, CAD, COPD, Hyperlipidemia, Hypertension, Malignancy - Past Medical History Cardiac Medical History: Reports: Hx DVT, Hx Hypertension, Hx Peripheral Vascular Disease Pulmonary Medical History: Reports: Hx Asthma, Hx Bronchitis - Once yearly, Hx COPD, Hx Pneumonia - Aug 2014 Malignancy Medical History: Reports: Hx Skin Cancer GI Medical History: Reports: Hx Gastroesophageal Reflux Disease, Hx Hiatal Hernia, Hx Ulcer Musculoskeletal Medical History: Reports Hx Arthritis, Reports Hx Musculoskeletal Deformity Psychiatric Medical History: Reports: Hx Depression Past Surgical History: Reports: Hx Section - x3, Hx Vascular Surgery - Left aoro-fem bypass Apr 2015 - Immunizations Hx Diphtheria, Pertussis, Tetanus Vaccination: Yes Hx Pneumococcal Vaccination: 05/13/14 Review of Systems - Review of Systems Constitutional: No symptoms reported EENT: No symptoms reported Cardiovascular: No symptoms reported Respiratory: No symptoms reported Gastrointestinal: No symptoms reported Genitourinary: No symptoms reported Female Genitourinary: No symptoms reported Musculoskeletal: See HPI, Other - L shoulder pain Skin: No symptoms reported Hematologic/Lymphatic: No symptoms reported Neurological/Psychological: No symptoms reported -: Yes All other systems reviewed and negative Physical Exam - Vital signs Vitals: Temp Pulse Resp BP Pulse Ox 98.4 F 105 H 24 H 140/83 H 94 02/22/20 09:11 02/22/20 09:11 02/22/20 09:11 02/22/20 09:11 02/22/20 09:11 - General General appearance: Appears well, Alert - HEENT Head: Normocephalic, Atraumatic Eyes: Normal Pupils: PERRL - Respiratory Respiratory status: No respiratory distress Chest status: Nontender Breath sounds: Normal Chest palpation: Normal - Cardiovascular Rhythm: Regular Heart sounds: Normal auscultation Murmur: No - Abdominal Inspection: Normal Distension: No distension Bowel sounds: Normal Tenderness: Nontender - Extremities General lower extremity: Normal inspection. No: Edema Notes: Tenderness with palpation to the left anterior shoulder and left anterior humerus. Full ROM. No crepitus or deformity. - Neurological Neuro grossly intact: Yes Cognition: Normal Orientation: AAOx4 Speech: Normal - Psychological Associated symptoms: Normal affect, Normal mood - Skin Skin Temperature: Warm Skin Moisture: Dry Skin Color: Normal Course - Re-evaluation Re-evalutation: 02/22/20 12:21 Patient resting comfortably pending results of x-ray. - Vital Signs Vital signs: Temp Pulse Resp BP Pulse Ox 98.4 F 105 H 24 H 140/83 H 94 02/22/20 09:11 02/22/20 09:11 02/22/20 09:11 02/22/20 09:11 02/22/20 09:11 02/22/20 12:21 Vital vital signs stable. - Diagnostic Test Radiology reviewed: Image reviewed, Reports reviewed Radiology results interpreted by me: 02/22/20 12:21 x-ray left shoulder shows no acute process other than arthritis in the glenohumeral joint. No dislocation. Plain film x-ray left humerus shows no acute process no fracture. Discharge - Discharge Clinical Impression: Arthritis of left shoulder region Condition: Stable Disposition: HOME, SELF-CARE Additional Instructions: You have arthritis and pain in your left shoulder there is no evidence for any acute process at this time. No fracture no dislocation and no osseous abnormality. Also the left humerus was x-rayed and again shows no acute process. We recommend that you begin Tylenol if needed for this shoulder pain. Referrals: FATIMAH MCNALLY MD [Primary Care Provider] - Follow up as needed I personally performed the services described in the documentation, reviewed and edited the documentation which was dictated to the scribe in my presence, and it accurately records my words and actions.
[2020-02-22 12:40] VITALS: BP 122/79
== END 2020-02-22 12:40 | disposition home or self-care (01) ==
LOC: ER 09:04
DX: M13.812 Other specified arthritis, left shoulder (principal); M25.512 Pain in left shoulder; Z88.0 Allergy status to penicillin; Z88.8 Allergy status to other drugs, medicaments and biological substances; I10 Essential (primary) hypertension; J44.9 Chronic obstructive pulmonary disease, unspecified
CPT/HCPCS: 99283

== ENCOUNTER 2020-02-25 10:53 | Emergency (ER) | payer MEDICAID ==
--- NOTE | 2020-02-25 11:04 | ER Document Report ---
ED Medical Screen (RME) - General Chief Complaint: Irregular Pulse Stated Complaint: FAST HEARTBEAT - DR REFERRED Primary Care Provider: FATIMAH MCNALLY MD [Primary Care Provider] - Follow up as needed Mode of Arrival: Ambulatory Information source: Patient Notes: 60-year-old female presents to ED for complaint of palpitations and some chest pain. She states is been going on for a while but she just told the doctor today. She states she is also had some left arm pain that is been going on for little bit longer than the chest pain and the palpitations. She states whenever the palpitations, she gets very short of breath she does have a history of lung cancer she does get chemo her last dose was generalized 789 which will mean she should be very neutropenic at this time. She also has a history of peripheral vascular disease high blood pressure and frequent ulcers and arthritis. He is alert oriented speaking in full sentences and walks with a even steady gait at this time. She was sent over here by the oncology office. Ailyn at oncology at [id number] sent her over here. I have greeted and performed a rapid initial assessment of this patient. A comprehensive ED assessment and evaluation of the patient, analysis of test results and completion of medical decision making process will be conducted by an additional ED providers. TRAVEL OUTSIDE OF THE [place] IN LAST 30 DAYS: No - Related Data Allergies/Adverse Reactions: amoxicillin [Amoxicillin] Allergy (Severe, Verified 02/22/20 09:57) Anaphylaxis cyclobenzaprine HCl [From Flexeril] Allergy (Severe, Verified 02/22/20 09:57) Anaphylaxis tramadol [Tramadol] Allergy (Severe, Verified 02/22/20 09:57) Anaphylaxis Past Medical History - Past Medical History Cardiac Medical History: Reports: Hx DVT, Hx Hypercholesterolemia, Hx Hypertension, Hx Peripheral Vascular Disease Denies: Hx Coronary Artery Disease, Hx Heart Attack Pulmonary Medical History: Reports: Hx Asthma, Hx Bronchitis - Once yearly, Hx COPD, Hx Pneumonia - Aug 2014 Neurological Medical History: Denies: Hx Cerebrovascular Accident, Hx Seizures Renal/ Medical History: Denies: Hx Peritoneal Dialysis Malignancy Medical History: Reports: Hx Skin Cancer GI Medical History: Reports: Hx Gastroesophageal Reflux Disease, Hx Hiatal Hernia, Hx Ulcer Musculoskeltal Medical History: Reports Hx Arthritis, Reports Hx Musculoskeletal Deformity Psychiatric Medical History: Reports: Hx Depression Past Surgical History: Reports: Hx Abdominal Surgery - Hiatal hernia, Hx Section - x3, Hx Vascular Surgery - Left aoro-fem bypass Apr 2015. Denies: Hx Hysterectomy - Immunizations Hx Diphtheria, Pertussis, Tetanus Vaccination: Yes Doctor's Discharge - Discharge Referrals: FATIMAH MCNALLY MD [Primary Care Provider] - Follow up as needed
[2020-02-25 11:24] LABS: ABSOLUTE LYMPHOCYTES (AUTO) 0.3 10^3/uL (0.5-4.7); ABSOLUTE MONOCYTES (AUTO) 0.1 10^3/uL (0.1-1.4); ABSOLUTE NEUT (AUTO) 1.7 10^3/uL (1.7-8.2); BASOPHILS % (AUTO) 1.3 % (0-2); EOSINOPHILS % (AUTO) 0.9 % (0-6); HEMATOCRIT 25.1 % (36.0-47.0); HEMOGLOBIN 8.6 g/dL (12.0-15.5); LYMPHOCYTES % (AUTO) 12.2 % (13-45); MEAN CORPUSCULAR HEMOGLOBIN 32.5 pg (27.0-33.4); MEAN CORPUSCULAR HGB CONC 34.1 g/dL (32.0-36.0); MEAN CORPUSCULAR VOLUME 95 fl (80-97); MONOCYTES % (AUTO) 2.7 % (3-13); PLATELET COUNT 207 10^3/uL (150-450); RED BLOOD COUNT 2.63 10^6/uL (3.72-5.28); RED CELL DISTRIBUTION WIDTH 20.4 % (11.5-14.0); SEGMENTED NEUTROPHILS % (AUTO) 82.9 % (42-78); TOTAL CELLS COUNTED % (AUTO) 100 %; WHITE BLOOD COUNT 2.1 10^3/uL (4.0-10.5)
[2020-02-25 11:28] LABS: INTERNATIONAL RATION (INR) 0.91; PROTHROMBIN TIME 12.2 SEC (11.4-15.4)
[2020-02-25 11:29] LABS: PARTIAL THROMBOPLASTIN TIME 27.1 SEC (23.5-35.8)
[2020-02-25] MEDS ORDERED: MORPHINE SULFATE 10 MG/ML INJ IV ONE (11:40)
[2020-02-25 11:43] LABS: ALBUMIN 3.7 g/dL (3.5-5.0); ALKALINE PHOSPHATASE 61 U/L (38-126); ANION GAP 6 (5-19); ASPARTATE AMINO TRANSFERASE 20 U/L (14-36); BILIRUBIN,TOTAL 0.5 mg/dL (0.2-1.3); BLOOD UREA NITROGEN 21 mg/dL (7-20); CALCIUM 9.6 mg/dL (8.4-10.2); CARBON DIOXIDE 30 mmol/L (22-30); CHLORIDE 100 mmol/L (98-107); CREATINE KINASE 79 U/L (30-135); GLUCOSE 113 mg/dL (75-110); TOTAL PROTEIN 6.1 g/dL (6.3-8.2)
[2020-02-25 11:57] LABS: NT PRO BNP 160 pg/mL (<125)
[2020-02-25 11:59] LABS: TROPONIN I < 0.012 ng/mL
[2020-02-25] MEDS ORDERED: POTASSIUM CHLORIDE 20 MEQ PACKET PO ONE ×2 (12:00→13:14)
--- NOTE | 2020-02-25 12:37 | RADIOLOGY REPORT (SQ) ---
EXAM DESCRIPTION: CTA CHEST IMAGES COMPLETED DATE/TIME: 02/25/2020 12:07 pm REASON FOR STUDY: cancer/cp/palp COMPARISON: None. TECHNIQUE: CT scan of the chest performed using helical scanning technique with dynamic intravenous contrast injection. Images reviewed with lung, soft tissue and bone windows. Reconstructed coronal and sagittal MPR images reviewed. Additional 3 dimensional post-processing performed to develop Maximal Intensity Projection images (AZ P). All images stored on PACS. All CT scanners at this facility use dose modulation, iterative reconstruction, and/or weight based d osing when appropriate to reduce radiation dose to as low as reasonably achievable (ALARA). [facility]: Dose Right [facility]: CareDose [facility]: Dose Right [facility]: Teradose 4D [facility]: [employer] CONTRAST TYPE AND DOSE: contrast/concentration: Isovue 350.00 mmol/ml; Total Contrast Delivered: 54. 0 ml; Total Saline Delivered: 55.0 ml Contrast bolus adequate for pulmonary arteries and aorta. RENAL FUNCTION: Creatinine 1.1 RADIATION DOSE: CT Rad equipment meets quality standard of care and radiation dose reduction techniq ues were employed. CTDIvol: 6.6 - 16.5 mGy. DLP: 597 mGy-cm. . LIMITATIONS: None. FINDINGS: LUNGS AND PLEURA: No focal consolidation. No pleural effusion or pneumothorax. 8 mm nod ular opacity along the inferior right medial lobe (series 4, image 63) may represent pulmonary nodule versus vessel confluence. AORTA AND GREAT VESSELS: No aneurysm. No dissection. HEART: Normal heart size. No pericardial effusion. Coronary atherosclerosis. PULMONARY ARTERIES: No emboli visualized in the main pulmonary arteries or the segmental branches. HILAR AND MEDIASTINAL STRUCTURES: No identified masses or abnormal nodes. HARDWARE: None in the chest. UPPER ABDOMEN: No significant findings. Limited exam. THYROID AND OTHER SOFT TISSUES: No masses. No adenopathy. BONES: No acute or significant finding. 3D MIPS: Confirm above findings. OTHER: No other significant finding. IMPRESSION: 1. No evidence of pulmonary embolus or other acute intrathoracic process. 2. 8 mm nodular opacity along the inferior right middle lobe possibly pulmonary nodule versus vessel confluence. Recommend attention on follow-up as below. COMMENT: FLEISCHNER CRITERIA FOR FOLLOW-UP OF PULMONARY NODULES Incidentally detected new nodules in persons 35 or older. HIGH RISK: History of smoking or other known risk factors. 6-8 mm single solid nodule: LOW RISK: CT 6-12 mo; then consider CT 18-24 mo. HIGH RISK: CT 6-12 mo; t hen CT 18-24 mo. Quality ID # [id number]: Final reports with documentation of one or more dose reduction techniques (e.g., Au tomated exposure control, adjustment of the mA and/or kV according to patient size, use of iterative reconstruction technique) TECHNICAL DOCUMENTATION: JOB ID: [id number] 2010 [employer]- All Rights Reserved Reading location - IP/workstation name: [email or web address]
[2020-02-25] MEDS: MAGNESIUM SULFATE/D5W 1 GM/100 ML RTUPB IV SCH ×2 (12:51→13:27)
--- NOTE | 2020-02-25 13:09 | EKG REPORT ---
SEVERITY:- OTHERWISE NORMAL ECG - SINUS TACHYCARDIA : Confirmed by: Mark Santos MD 25-Feb-2020 13:08:44
--- NOTE | 2020-02-25 13:11 | ER Document Report ---
ED General - General Chief Complaint: Palpitations Stated Complaint: FAST HEARTBEAT - DR REFERRED Time Seen by Provider: 02/25/20 11:18 Primary Care Provider: FATIMAH MCNALLY MD [Primary Care Provider] - Follow up as needed Mode of Arrival: Ambulatory Information source: Patient TRAVEL OUTSIDE OF THE [place] IN LAST 30 DAYS: No - HPI Notes: Patient presents complaint of palpitations. She states she has had palpitations now for approximately 1 month. It is been on and off. She gets some mild chest pain as well. She is currently receiving chemotherapy and radiation for lung cancer. She states that when she went to her oncology appointment today she mentioned the palpitations and they referred her here to the emergency department. She states nothing makes them better or worse. They are mild to moderate in intensity. They seem to occur randomly. She has had no significant nausea or vomiting or diarrhea. No known COVID virus exposures. There is no radiation of the symptoms. She is unsure of anything that makes them better or worse. - Related Data Allergies/Adverse Reactions: amoxicillin [Amoxicillin] Allergy (Severe, Verified 02/25/20 11:14) Anaphylaxis cyclobenzaprine HCl [From Flexeril] Allergy (Severe, Verified 02/25/20 11:14) Anaphylaxis tramadol [Tramadol] Allergy (Severe, Verified 02/25/20 11:14) Anaphylaxis Past Medical History - General Information source: Patient - Social History Smoking Status: Former Smoker Chew tobacco use (# tins/day): No Frequency of alcohol use: None Drug Abuse: None Family History: Arthritis, CAD, COPD, Hyperlipidemia, Hypertension, Malignancy - Past Medical History Cardiac Medical History: Reports: Hx DVT, Hx Hypercholesterolemia, Hx Hypertension, Hx Peripheral Vascular Disease Denies: Hx Coronary Artery Disease, Hx Heart Attack Pulmonary Medical History: Reports: Hx Asthma, Hx Bronchitis - Once yearly, Hx COPD, Hx Pneumonia - Aug 2014 Neurological Medical History: Denies: Hx Cerebrovascular Accident, Hx Seizures Renal/ Medical History: Denies: Hx Peritoneal Dialysis Malignancy Medical History: Reports: Hx Skin Cancer GI Medical History: Reports: Hx Gastroesophageal Reflux Disease, Hx Hiatal Hernia, Hx Ulcer Musculoskeletal Medical History: Reports Hx Arthritis, Reports Hx Musculoskeletal Deformity Psychiatric Medical History: Reports: Hx Depression Past Surgical History: Reports: Hx Abdominal Surgery - Hiatal hernia, Hx Section - x3, Hx Vascular Surgery - Left aoro-fem bypass Apr 2015. Denies: Hx Hysterectomy - Immunizations Hx Diphtheria, Pertussis, Tetanus Vaccination: Yes Hx Pneumococcal Vaccination: 05/13/14 Review of Systems - Review of Systems Constitutional: denies: Chills, Fever EENT: denies: Nose congestion, Nose discharge Cardiovascular: Chest pain, Palpitations -: Yes All other systems reviewed and negative Physical Exam - Vital signs Vitals: Temp Pulse Resp BP Pulse Ox 99.0 F 118 H 16 117/67 94 02/25/20 11:09 02/25/20 11:09 02/25/20 11:09 02/25/20 11:09 02/25/20 11:09 Interpretation: Tachycardic - General General appearance: Appears well, Alert - HEENT Head: Normocephalic, Atraumatic Eyes: Normal Pupils: PERRL - Respiratory Respiratory status: No respiratory distress Chest status: Nontender Breath sounds: Normal Chest palpation: Normal - Cardiovascular Rhythm: Tachycardia Heart sounds: Normal auscultation Murmur: No - Abdominal Inspection: Normal Distension: No distension Bowel sounds: Normal Tenderness: Nontender Organomegaly: No organomegaly - Back Back: Normal, Nontender - Extremities General upper extremity: Normal inspection, Nontender, Normal color, Normal ROM, Normal temperature General lower extremity: Normal inspection, Nontender, Normal color, Normal ROM, Normal temperature, Normal weight bearing. No: Nessa's sign - Neurological Neuro grossly intact: Yes Cognition: Normal Orientation: AAOx4 Ross Coma Scale Eye Opening: Spontaneous Ross Coma Scale Verbal: Oriented Anitha Coma Scale Motor: Obeys Commands Ross Coma Scale Total: 15 Speech: Normal Motor strength normal: LUE, RUE, LLE, RLE Sensory: Normal - Psychological Associated symptoms: Normal affect, Normal mood - Skin Skin Temperature: Warm Skin Moisture: Dry Skin Color: Normal Course - Re-evaluation Re-evalutation: 02/25/20 13:11 Patient sent from oncology secondary to palpitations. Work-up here is unremarkable other than hypokalemia and hypomagnesemia. She has no evidence of pulmonary embolism or coronary artery disease. Her potassium is been replaced orally and her magnesium will be replaced intravenously. I have discussed the case with Dr. Vuong. We have agreed together the patient can be discharged and follow-up in the office. - Vital Signs Vital signs: Temp Pulse Resp BP Pulse Ox 99 F 118 H 18 109/65 97 02/25/20 11:12 02/25/20 11:09 02/25/20 11:50 02/25/20 11:50 02/25/20 11:58 - Laboratory Result Diagrams: 02/25/20 11:07 02/25/20 11:07 Laboratory results interpreted by me: 02/25/20 02/25/20 02/25/20 11:07 11:07 11:07 WBC 2.1 L RBC 2.63 L Hgb 8.6 L Hct 25.1 L RDW 20.4 H Lymph % (Auto) 12.2 L [place] % (Auto) 2.7 L Absolute Lymphs (auto) 0.3 L Seg Neutrophils % 82.9 H Sodium 136.4 L Potassium 3.0 L* BUN 21 H Est GFR (MDRD) Non-Af 51 L Glucose 113 H Magnesium 1.1 L* NT-Pro-B Natriuret Pep 160 H Total Protein 6.1 L - Diagnostic Test Radiology reviewed: Image reviewed, Reports reviewed - EKG Interpretation by Me EKG shows normal: Sinus rhythm Rate: Tachycardia - 120 Rhythm: NSR Eola/QRS: No: Right axis deviation, Left axis deviation Discharge - Discharge Clinical Impression: Palpitations, Hypomagnesemia, Hypokalemia Condition: Stable Disposition: HOME, SELF-CARE Instructions: Potassium ([facility]) Referrals: ZANE WHITTINGTON MD [ACTIVE STAFF] - Follow up in 3-5 days
--- NOTE | 2020-02-25 13:16 | RADIOLOGY REPORT (SQ) ---
EXAM DESCRIPTION: CHEST 2 VIEWS IMAGES COMPLETED DATE/TIME: 02/25/2020 1:03 pm REASON FOR STUDY: chest pain palpitations COMPARISON: 11/24/2019 EXAM PARAMETERS: NUMBER OF VIEWS: two views TECHNIQUE: Digital Frontal and Lateral radiographic views of the chest acquired. RADIATION DOSE: NA LIMITATIONS: none FINDINGS: LUNGS AND PLEURA: No opacities, masses or pneumothorax. No pleural effusion. MEDIASTINUM AND HILAR STRUCTURES: No masses or contour abnormalities. HEART AND VASCULAR STRUCTURES: Heart normal size. No evidence for failure. BONES: No acute findings. HARDWARE: None in the chest. OTHER: No other significant finding. IMPRESSION: NO ACUTE RADIOGRAPHIC FINDING IN THE CHEST. TECHNICAL DOCUMENTATION: JOB ID: [id number] 2010 [employer]- All Rights Reserved Reading location - IP/workstation name: [email or web address]
[2020-02-25 14:13] VITALS: BP 125/74
== END 2020-02-25 14:25 | disposition home or self-care (01) ==
LOC: ER 10:53
DX: R00.2 Palpitations (principal); E87.6 Hypokalemia; E83.42 Hypomagnesemia; R07.9 Chest pain, unspecified; R00.0 Tachycardia, unspecified; R06.02 Shortness of breath; C34.90 Malignant neoplasm of unspecified part of unspecified bronchus or lung; I10 Essential (primary) hypertension; J44.9 Chronic obstructive pulmonary disease, unspecified; Z79.899 Other long term (current) drug therapy; Z87.892 Personal history of anaphylaxis; Z88.0 Allergy status to penicillin; Z88.8 Allergy status to other drugs, medicaments and biological substances; Z88.6 Allergy status to analgesic agent; Z87.891 Personal history of nicotine dependence
CPT/HCPCS: 93005; 99285; 96375; 96365; 36415; 82550; 83690; 83735; 85025; 85610; 85730; 80053; 84484; 83880; 71046; 71275; 93010; J2270; J3475; J3490

== ENCOUNTER → 2020-04-05 | Outpatient (CLI) | payer MEDICAID ==
--- NOTE | 2020-04-05 11:49 | RADIOLOGY REPORT (SQ) ---
EXAM DESCRIPTION: CT CHEST WITH IMAGES COMPLETED DATE/TIME: 04/05/2020 10:52 am REASON FOR STUDY: LUNG CANCER (C34.2) C34.2 MALIGNANT NEOPLASM OF MIDDLE LOBE, BRONCHUS OR LUNG COMPARISON: 02/25/2020 PET-CT 11/07/2019. TECHNIQUE: CT scan of the chest performed using helical scanning technique with dynamic intravenous contrast injection. Images reviewed with lung, soft tissue and bone windows. Reconstructed coronal and sagittal MPR and MIP images reviewed. All images stored on PACS. All CT scanners at this facility use dose modulation, iterative reconstruction, and/or weight based d osing when appropriate to reduce radiation dose to as low as reasonably achievable (ALARA). [facility]: Dose Right [facility]: CareDose [facility]: Dose Right [facility]: Teradose 4D [facility]: [employer] CONTRAST TYPE AND DOSE: contrast/concentration: Isovue 350.00 mmol/ml; Total Contrast Delivered: 80. 0 ml; Total Saline Delivered: 41.0 ml RENAL FUNCTION: Creatinine 1.0 RADIATION DOSE: CT Rad equipment meets quality standard of care and radiation dose reduction technZoe Majeste ues were employed. CTDIvol: 6.9 mGy. DLP: 272 mGy-cm. . LIMITATIONS: None. FINDINGS: LUNGS AND PLEURA: Stable nodular opacity at the confluence of vessels within the right mid dle lobe measuring 8 mm (series 4, image 72). There is associated mild adjacent pleural tenting and thickening. Stable tiny right apical subcentimeter nodule. No new discrete nodules or masses. No a irspace disease. No pleural effusion or pneumothorax. HILAR AND MEDIASTINAL STRUCTURES: No identified masses or abnormal nodes. No discrete right hilar ad enopathy as seen on exam dated 11/07/2019. HEART AND VASCULAR STRUCTURES: No aneurysm. No dissection. Scattered coronary atherosclerosis. No pericardial effusion. Normal heart size. HARDWARE: None in the chest. UPPER ABDOMEN: No significant findings. Limited exam. THYROID AND OTHER SOFT TISSUES: No masses. No adenopathy. BONES: No significant finding. OTHER: No other significant finding. IMPRESSION: 1. 8 mm nodular opacity at the confluence of vessels within the right middle lobe. Fin dings stable compared to recent chest CT but decreased compared to CT dated 11/07/2019. Findings like ly represent post treatment change although residual disease not entirely excluded. 2. No other evidence of acute intrathoracic process. TECHNICAL DOCUMENTATION: JOB ID: [id number] Quality ID # [id number]: Final reports with documentation of one or more dose reduction techniques (e.g., Au tomated exposure control, adjustment of the mA and/or kV according to patient size, use of iterative reconstruction technique) 2010 [employer]- All Rights Reserved Reading location - IP/workstation name: [email or web address]
== END ==
LOC: RAD 10:12
PROVIDERS: ATTEND Radiology Radiation Oncology
DX: C34.2 Malignant neoplasm of middle lobe, bronchus or lung (principal)
CPT/HCPCS: 71260; 82565

== ENCOUNTER → 2020-06-08 | Outpatient (CLI) | payer MEDICAID ==
--- NOTE | 2020-06-08 14:18 | RADIOLOGY REPORT (SQ) ---
EXAM DESCRIPTION: PET CT SKULL/THIGH IMAGES COMPLETED DATE/TIME: 06/08/2020 1:43 pm REASON FOR STUDY: MALIGNANT NEOPLASM OF MIDDLE LOBE, BRONCHUS OR LUNG C34.2 MALIGNANT NEOPLASM OF M IDDLE LOBE, BRONCHUS OR LUNG COMPARISON: 04/05/2020 RADIONUCLIDE AND DOSE: 10.29 mCi F18 FDG The route of agent administration: Intravenous FASTING BLOOD SUGAR: 107 mg/dl CONTRAST TYPE AND DOSE: No CT contrast given. TECHNIQUE: Blood glucose level was verified. Above dose of FDG was injected intravenously. 2-D seg mented attenuation correction images were obtained from the base of the skull to the midthighs. Nonc ontrast CT images were obtained for attenuation correction and fusion with emission images. CT image s were performed without oral or intravenous contrast and are not sensitive for parenchymal lesions. A series of overlapping emission PET images were obtained. Images reviewed and manipulated at [facility] work station by the radiologist. Images stored on PACS. LIMITATIONS: None. FINDINGS: HEAD AND NECK: There is asymmetric uptake in the left upper neck best demonstrated on slic e 22 of 255 on PET images. No corresponding CT abnormality. Suspect this is physiologic. CHEST: No areas of abnormal metabolic activity in the chest. There is a calcified granuloma in the r ight middle lobe best demonstrated on series 3, image 88. ABDOMEN AND PELVIS: No areas of abnormal metabolic activity in the abdomen or pelvis. Expected physi ologic activity is present in the genitourinary system and bowel. PROXIMAL LOWER EXTREMITIES: No areas of abnormal metabolic activity in the soft tissues of the lower extremities. BONES: No abnormal metabolic activity in the visualized skeleton. ADDITIONAL CT FINDINGS: No additional significant findings on the noncontrast CT images. OTHER: No other significant findings. IMPRESSION: Negative PET-CT. TECHNICAL DOCUMENTATION: JOB ID: [id number] 2010 [employer]- All Rights Reserved Reading location - IP/workstation name: [email or web address]
== END ==
LOC: RAD 07:59
PROVIDERS: ATTEND Internal Medicine
DX: C34.2 Malignant neoplasm of middle lobe, bronchus or lung (principal)
CPT/HCPCS: 78815; A9552

== ENCOUNTER → 2020-07-16 | Outpatient (CLI) | payer MEDICAID ==
--- NOTE | 2020-07-16 11:42 | RADIOLOGY REPORT (SQ) ---
EXAM DESCRIPTION: U/S ABDOMEN LIMITED W/O DOP IMAGES COMPLETED DATE/TIME: 07/16/2020 9:31 am REASON FOR STUDY: R10.11 RIGHT UPPER QUADRANT PAIN R10.11 RIGHT UPPER QUADRANT PAIN R11.0 NAUSEA COMPARISON: 07/30/2018 TECHNIQUE: Dynamic and static grayscale images acquired of the abdomen and recorded on PACS. Additio thomas selected color Doppler and spectral images recorded. LIMITATIONS: None. FINDINGS: PANCREAS: Suboptimal visualization due to overlying bowel gas. LIVER: Heterogenous echotexture. The liver measures 14.7 cm length, normal size. LIVER VASCULATURE: Normal directional flow of the main portal vein and hepatic veins. GALLBLADDER: No stones. The gallbladder wall measures 2.0 mm, normal wall thickness. No pericholecys tic fluid. ULTRASOUND-DETECTED AGUILAR'S SIGN: Negative. INTRAHEPATIC DUCTS AND COMMON DUCT: CBD measures 3.0 mm in diameter, normal. The ntrahepatic ducts no rmal caliber. No filling defects. INFERIOR VENA CAVA: Normal flow. AORTA: No aneurysm. RIGHT KIDNEY: The right kidney measures 10.7 cm in length, normal size. No solid or suspicious kaitlyn s. No hydronephrosis. No calcifications. PERITONEAL AND RIGHT PLEURAL SPACE: No ascites or effusions. OTHER: No other significant findings. IMPRESSION: 1. Suboptimal visualization of the pancreas due to overlying bowel gas. 2. Heterogenous echotexture to the liver. TECHNICAL DOCUMENTATION: JOB ID: [id number] 2010 [employer]- All Rights Reserved Reading location - IP/workstation name: [email or web address]
== END ==
LOC: RAD 08:47
PROVIDERS: ATTEND Internal Medicine Gastroenterology
DX: R10.11 Right upper quadrant pain (principal); R11.0 Nausea
CPT/HCPCS: 76705